=== PATIENT | male | born 1970 | race Hispanic/Latino ===

== ENCOUNTER 2017-04-30 10:00 | Inpatient (IN) | payer OTHER, SELFPAY ==
[2017-04-30] MEDS ORDERED: Piperacillin/Tazobactam 3.375 GM in Sodium Chloride 0.9% 100 ML IVPB SCH (11:30)
[2017-04-30] MEDS ORDERED: Ketorolac Tromethamine 30 MG/ML VIAL ONE (11:31)
[2017-04-30 11:36] LABS: Hemoglobin 10.5 g/dL (14.0-18.0); Mean Corpuscular HGB CONC 31.6 g/dL (32.0-36.0); Mean Corpuscular Hemoglobin 27.8 pg (27.0-31.0); Mean Platelet Volume 6.4 fL (7.4-10.4); Platelet Count 515 thou/uL (130-400); RBC Distribution Width 13.1 % (11.5-14.5); Red Blood Cell (RBC) Count 3.77 mill/uL (4.70-6.10); White Blood Cell (WBC) Count 24.2 thou/uL (4.8-10.8)
[2017-04-30 11:54] LABS: Band 14 % (5-11); Lymphocytes 8 % (21-51); MDiff Complete? YES; Monocytes 6 % (0-10); Neutrophil 72 % (42-75); PLT Morphology Comment Appears Increased; Polychromasia SLIGHT = 2-3 cells (100X) (0-2/hpf); Rouleaux Formation SLIGHT = 1-5 cells (100X) (None Seen)
[2017-04-30 12:10] LABS: Actual Bicarbonate (HCO3a) 18.5 mEq/L (22-26); Base Excess (BEa) -5.1 mEq/L (0 (+/-) 2.5); CO2 Tension 29.5 mmHg (35.0-45.0); Carboxyhemoglobin (COHb) 2.6 gm% (0.0-3.0); Hematocrit-ABG 35.5 % (42.0-52.0); Hemoglobin (Hb) 10.2 g/dL (14.0-18.0); O2 Tension (PaO2) 69.8 mmHg (80.0-100.0); pH, Arterial 7.41 (7.35-7.45)
[2017-04-30 12:11] LABS: Analyzer IN Cardio ER; Potassium - ABG Lab 2.9 mmol/L (3.70-5.30)
[2017-04-30 12:12] LABS: ALT (SGPT) 9 U/L (8-55); AST (SGOT) 22 U/L (5-34); Albumin 3.6 g/dL (3.5-5.0); Alkaline Phosphatase 120 U/L (40-150); Anion Gap 20 mmol/L (10-20); BUN (Urea Nitrogen) 31 mg/dL (8.9-20.6); Bilirubin, Total 1.1 mg/dL (0.2-1.2); Calc. Creatinine Clearance 0 mL/min (70-130); Calcium 9.2 mg/dL (7.8-10.44); Carbon Dioxide 16 mmol/L (22-29); Chloride 96 mmol/L (98-107); Estimated GFR-MDRD 37; Globulin 5.7 g/dL (2.4-3.5); Glucose 264 mg/dL (70-105); Potassium 3.1 mmol/L (3.5-5.1); Protein, Total 9.3 g/dL (6.0-8.3); Sodium 129 mmol/L (136-145)
--- NOTE | 2017-04-30 13:08 | ULT ---
VENOUS DOPPLER ULTRASOUND OF THE LEFT LOWER EXTREMITY: HISTORY: Edema and erythema in the left lower extremity, left foot wound for 2 weeks. TECHNIQUE: Linder scale ultrasound with color flow and spectral Doppler imaging of the deep venous system of the l eft lower extremity is performed. FINDINGS: There is good flow, compression, and augmentation noted in the left common femoral, femoral, poplitea l, posterior tibial, and greater saphenous veins. Incidental note is made of multiple enlarged lymph nodes in the left groin, the largest measuring abo ut 4.5 cm. IMPRESSION: No evidence of deep vein thrombosis in the left lower extremity. POS: [facility]
[2017-04-30] MEDS ORDERED: HumaLOG 300 UNITS/3 ML VIAL SC PRN (13:10)
[2017-04-30] MEDS ORDERED: Senokot 8.6 MG TAB PO PRN (13:10)
[2017-04-30] MEDS ORDERED: Dextrose 5% in Water 1,000 ML IV PRN (13:10)
[2017-04-30] MEDS ORDERED: Dextrose 50% Abboject 50 ML SYRINGE SLOW IVP PRN (13:10)
[2017-04-30] MEDS ORDERED: Guaifenesin DM 100-10/5 ML UDCUP PO PRN (13:10)
[2017-04-30] MEDS ORDERED: Sodium Chloride 0.9% 1,000 ML IV SCH (13:15)
--- NOTE | 2017-04-30 13:21 | RAD ---
THREE VIEWS LEFT FOOT: Comparison: None. History: Left foot infection with a blister on the bottom of the foot that got infected. FINDINGS: Three views of the left foot shows no evidence of acute fracture or dislocation. There is gas within the subcutaneous tissues along the dorsal aspect of the foot. This appears to be along the lateral as pect of the foot. No obvious osseous erosions are seen. There are degenerative changes in the great t oe metatarsal phalangeal joint. IMPRESSION: There is gas in the subcutaneous tissues concerning for necrotizing fascitis. Dr. Nj notified o f the findings at 1:01 p.m. on 04-30-17. POS: [facility]
--- NOTE | 2017-04-30 14:41 | HP ---
REASON FOR ADMISSION: Left foot cellulitis with ulcer, sepsis. HISTORY OF PRESENT ILLNESS: The patient gives history of developing a blister 2 weeks back on the la teral aspect of the left foot. This progressively became worse. He started swelling up and also sta rted to have purulent drainage from the ulcer. The ulcer has grown nearly to 3 x 3 cm now on the dinorah ntar aspect of the left foot over the fifth, fourth and third toe metatarsals. As the swelling and t he discharge got worse the patient came to emergency room. 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 PAST MEDICAL AND SURGICAL HISTORY: History of diabetes mellitus type 2 from last 10 years, right ish t great toe amputation done a year back by Dr. Vyas. CURRENT MEDICATIONS: Metformin 500 mg 2 p.o. twice daily, Tresiba 12 units daily. ALLERGIES: No known drug allergies. PERSONAL HISTORY: Does not abuse alcohol or drugs. No history of smoking. 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 FAMILY HISTORY: Mother of stomach cancer at the age of 81 years. Father is healthy and is 88 y ears old now. REVIEW OF SYSTEMS: The following complete review of systems was negative, unless otherwise mentioned in the HPI or below: Constitutional: Weight loss or gain, ability to conduct usual activities. Skin: Rash, itching. Eyes: Double vision, pain. ENT/Mouth: Nose bleeding, neck stiffness, pain, tenderness. Cardiovascular: Palpitations, dyspnea on exertion, orthopnea. Respiratory: Shortness of breath, wheezing, cough, hemoptysis, fever or night sweats. Gastrointestinal: Poor appetite, abdominal pain, heartburn, nausea, vomiting, constipation, or diarrhea. Genitourinary: Urgency, frequency, dysuria, nocturia. Musculoskeletal: Pain, swelling. Neurologic/Psychiatric: Anxiety, depression. Allergy/Immunologic: Skin rash, bleeding tendency. PHYSICAL EXAMINATION: GENERAL: The patient is a 47-year-old male who is currently not in any acute distress. VITAL SIGNS: Blood pressure on arrival was 86/54, currently 110/76 after 2 liters of normal saline, pulse 100 per minute, respiratory rate 22 per minute, temperature 98.2 degrees Fahrenheit, saturating 99% on room air. NECK: Supple, no elevated JVD. HEENT: Eyes; extraocular muscles intact. Pupils reacting to light. Oral cavity; mucous membranes a re moist. No exudates or congestion. CARDIOVASCULAR: S1, S2 heard. Regular rhythm. RESPIRATORY: Air entry 1+ bilaterally. No rales or rhonchi. ABDOMEN: Soft, bowel sounds heard. No tenderness, rigidity or guarding. EXTREMITIES: Left foot, there is a large ulcer measuring 3 x 3 cm on the plantar aspect of the left 3, 4 and 5 metatarsals. There is also edema and erythema of the entire foot and extending up to the leg. VASCULAR: Peripheral pulses are 1+ bilateral. No ischemic ulcerations. CENTRAL NERVOUS SYSTEM: No gross focal deficits seen. Patient is lethargic, but oriented well. PSYCHIATRIC: The patient's mood is euthymic. No hallucinations or delusions. LABORATORY AND X-RAY FINDINGS: White count 24, H&H 10 and 33, platelet count is 515 with 72% neutrop hils and 14% bands, MCV is 88. Sodium 129, potassium 3.1. Serum bicarbonate 16, BUN 31, creatinine 1.9, serum glucose 264. Liver enzymes within normal limits. Albumin is 3.6. Beta hydroxybutyrate i s 1.07. Three view left foot x-ray done shows gas in the subcutaneous tissues concerning for necroti zing fasciitis. No evidence of acute fracture or dislocation was seen. No osseous erosions were see n. Ultrasound venous Doppler of left lower extremity done shows no evidence of DVT. CLINICAL IMPRESSION AND PLAN: The patient will be admitted to medical floor for left foot ulcer with suspicion for necrotizing fasciitis with gas seen on the left leg and foot x-ray. He will be placed on vancomycin and Zosyn. We will keep him n.p.o. for now. I spoke to Dr. Vyas for General Surger y consultation. We will obtain blood cultures and wound cultures. He will be on Levemir 10 units shoemaker bcutaneously twice daily for now. He also appears to have acute kidney injury and will be gently hyd rated with normal saline at 100 mL per hour. The patient has received 2 liters of normal saline in t he ER and 1 more liter will be given shortly. We will continue to closely monitor him on the medical floor.
[2017-04-30] MEDS ORDERED: PHENYLEPHRINE-NS 100 MCG/ML 10 ML SYRINGE ONE (14:58)
[2017-04-30] MEDS ORDERED: PROPOFOL 200 MG/20 ML VIAL ONE (14:58)
[2017-04-30] MEDS ORDERED: Ondansetron PF 4 MG/2 ML Vial ONE (14:58)
[2017-04-30] MEDS ORDERED: Lidocaine 1% PF 5 ML VIAL ONE (14:58)
[2017-04-30] MEDS ORDERED: Succinylcholine Chloride 20 MG/ML 10 ml SYRINGE FS ONE (14:58)
[2017-04-30] MEDS ORDERED: HYDROmorphone 0.5 MG/0.5 ML SYRINGE ONE (16:40)
--- NOTE | 2017-04-30 17:07 | HP ---
HISTORY OF PRESENT ILLNESS: Laureano Cooley is a 47-year-old male, known to me from 10/27/2015 when I debrided a callus, neuropathic ulcer, left foot, and amputation of right great toe, metatarsal. His left plantar foot beneath the fourth metatarsal and third metatarsal phalangeal joint, had a callus t hat I debrided. The patient represented to the emergency room, evaluated by Dr. Bharathi Nj and admitted by Dr. Woodard, Hospitalist Service for complaints of left foot leg cellulitis and seps is. He had x-rays that demonstrated gas in the soft tissues of the dorsum of foot to the ankle. He has cellulitis to his distal leg. He noted to have a white count of 24,000 with 14% bands. I was as ked to see him. He had a large plantar neuropathic ulcer beneath the fifth metatarsophalangeal joint had approximately 3 cm in diameter, I inserted pressure on this area, gas and pus exudate. Cultures were submitted. The patient has had blood cultures. He has acute kidney injury with slight elevati on of his BUN and creatinine above baseline, 31 and 1.95 respectfully. His Accu-Cheks are 273 to 264 . He has palpable pedal pulses. 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 Plan at this time for gas g angrene and emergent exploration of left fifth toe and metatarsal amputation of his toe and metatarsa l debridement of the wound, incision and drainage of abscess over the dorsum of foot, amputated of th e toes and metatarsals indicated he may very well need a guillotine amputation of the left leg and shoemaker bsequent definitive closure after resolution of his sepsis. He has cellulitis to his mid leg. He canales s a pitting edema of his foot and ecchymosis over the dorsum of foot. ALLERGIES: None. TOBACCO: None. ALCOHOL: None. MEDICATIONS: Metformin 500 b.i.d., Tarceva 12 units daily. PAST MEDICAL HISTORY: Diabetes mellitus, type 2. PAST SURGICAL HISTORY: Right great toe amputation, debridement of the plantar neuropathic ulcer and callus, left foot, they noted above. PHYSICAL EXAMINATION: VITAL SIGNS: Respiratory rate 22, temperature 98.2 degrees, pulse 105, blood pressure 187/53, weight 108 kilograms. HEENT: Unremarkable. LUNGS: Clear to auscultation. CARDIAC: Regular rate and rhythm without murmur or gallop. ABDOMEN: Soft, nontender. EXTREMITIES: Palpable femoral, popliteal pedal pulses bilaterally. Amputation of the right great to e has noted over the left foot. He has cellulitis over the dorsum of the foot to the distal half of left leg. He has edema of the left foot. He has neuropathic ulcer with gas and purulent discharge o n compression from ulcer on the metatarsophalangeal joint of the fifth toe, left. He has some ecchym osis and edema on the dorsum of the foot. LABORATORY DATA: Sodium 129, potassium 3.1, creatinine 1.95, BUN 31, glucose 264. Lactic acid 1.2. ASSESSMENT AND PLAN: 1. Septic diabetic left foot with gas gangrene and soft tissue x-rays of the dorsum of foot to the a nkle. Planned operative intervention as noted above. 2. Diabetes mellitus.
[2017-04-30] MEDS ORDERED: Zolpidem Tartrate 5 MG TAB PO PRN (17:25)
[2017-04-30] MEDS ORDERED: Ondansetron PF 4 MG/2 ML Vial IVP PRN (17:25)
[2017-04-30] MEDS ORDERED: diphenhydrAMINE 50 MG/ML VIAL IVP PRN (17:25)
[2017-04-30] MEDS ORDERED: diphenhydrAMINE 25 MG CAP PO PRN (17:25)
[2017-04-30] MEDS ORDERED: Promethazine HCl 25 MG/ML VIAL SLOW IVP PRN (17:25)
[2017-04-30] MEDS ORDERED: Fentanyl 5000 MCG/250 ML CADD IVPB PRN (17:25)
[2017-04-30] MEDS ORDERED: Ondansetron HCl/PF 4 MG/2 ML Vial IVP PRN (17:25)
[2017-04-30] MEDS ORDERED: Promethazine HCl 25 MG/ML VIAL IM PRN ×2 (17:25)
[2017-04-30] MEDS ORDERED: diphenhydrAMINE 50 MG/ML VIAL IM PRN (17:25)
[2017-04-30] MEDS ORDERED: Naloxone HCl 0.4 mg/ml Vial IV PRN (17:25)
[2017-04-30] MEDS ORDERED: Communication Order-Pharmacy FS SCH (17:30)
[2017-04-30] MEDS ORDERED: Fentanyl 100 MCG/2 ML VIAL ONE (17:40)
[2017-04-30] MEDS ORDERED: fentaNYL Citrate/PF 2,000 MCG in Sodium Chloride 0.9% 60 ML IV PRN (17:45)
[2017-04-30 20:18] LABS: Lactic Acid 1.3 mmol/L (0.5-2.2)
--- NOTE | 2017-04-30 21:23 | OP ---
DATE OF PROCEDURE: 04/30/2017 PREOPERATIVE DIAGNOSES: Gas gangrene, diabetic infection, left foot with plantar neuropathic ulcerat ion beneath the metatarsophalangeal joints of the fifth and fourth toes, left foot, sepsis, acute kid tam injury. POSTOPERATIVE DIAGNOSES: Gas gangrene, diabetic infection, left foot with plantar neuropathic ulcera tion beneath the metatarsophalangeal joints of the fifth and fourth toes, left foot, sepsis, acute ki dney injury. FINDINGS: Extensive gas gangrene over the dorsum of the foot with infection and purulent extending a nterior muscle compartment requiring guillotine amputation. ANESTHESIA: General. BLOOD LOSS: 150 mL. BLOOD TRANSFUSED: None. Culture submitted. PROCEDURE IN DETAIL: The patient taken to the operating room where under general anesthesia, the lef t lower extremity was prepared with Betadine, draped in routine fashion. I initially began with luigi rodriguez, planning to amputate the left fifth toe and metatarsal with findings of purulent foul smelling discharge extending over the dorsum of the foot and cephalad to the adjacent fourth toe with gas exud ing. I then extended the amputation to the fourth toe, realizing the same process up to the ankle. An incision made up to the ankle. I really appreciate the gangrenous grayish tissue found in the ten don sheaths and then anterior muscle compartment. As I compressed the anterior muscle compartments o f the left leg above the ankle, gas and pus drained out of the dorsum of the foot near the ankle. Gu illotine amputation of left leg undertaken with a circular incision above the ankle, carried down thr ough the skin and subcutaneous tissue, dividing vascular bundles between clamps and ligated with 2-0 silk ties. The fibula and tibia transected with Gigli saw. Hemostasis gained with cautery and 2-0 s ilk ties. Wound irrigated, good hemostasis obtained. Surgicel Xeroform sterile dressings applied. The patient tolerated the procedure well. Plan is to perform a definitive amputation of the left leg below the knee in the next 2-4 days.
[2017-04-30] MEDS: Famotidine 20 MG TAB PO SCH (21:40)
[2017-04-30] MEDS: Piperacillin/Tazobactam 2.25 GM in Sodium Chloride 0.9% 100 ML IVPB SCH (21:42)
[2017-04-30] MEDS: Insulin Detemir 100 UNITS/ML 10 UNITS in Pre-Filled Syringe SC SCH (21:42)
[2017-04-30] MEDS: Sodium Chloride 0.9% 1,000 ML IV SCH (21:43)
[2017-04-30 23:35] VITALS: BMI 33.3
[2017-05-01] MEDS: Sodium Chloride 0.9% 1,000 ML IV SCH ×3 (00:21→18:54)
[2017-05-01] MEDS: Acetaminophen 325 MG TAB PO PRN ×2 (00:21→05:22)
[2017-05-01] MEDS: Piperacillin/Tazobactam 2.25 GM in Sodium Chloride 0.9% 100 ML IVPB SCH ×2 (05:17→12:26)
[2017-05-01 06:33] LABS: Anion Gap 14 mmol/L (10-20); BUN (Urea Nitrogen) 35 mg/dL (8.9-20.6); Calc. Creatinine Clearance 87 mL/min (70-130); Calcium 7.4 mg/dL (7.8-10.44); Carbon Dioxide 19 mmol/L (22-29); Chloride 103 mmol/L (98-107); Estimated GFR-MDRD 47; Glucose 178 mg/dL (70-105); Potassium 2.9 mmol/L (3.5-5.1); Sodium 133 mmol/L (136-145)
[2017-05-01 06:34] LABS: Band 8 % (5-11); Hemoglobin 8.5 g/dL (14.0-18.0); Lymphocytes 4 % (21-51); MDiff Complete? YES; Mean Corpuscular HGB CONC 32.4 g/dL (32.0-36.0); Mean Corpuscular Hemoglobin 28.8 pg (27.0-31.0); Mean Corpuscular Volume 88.9 fl (80.0-94.0); Mean Platelet Volume 6.7 fL (7.4-10.4); Monocytes 7 % (0-10); Neutrophil 81 % (42-75); Platelet Count 378 thou/uL (130-400); RBC Distribution Width 13.2 % (11.5-14.5); Red Blood Cell (RBC) Count 2.94 mill/uL (4.70-6.10); White Blood Cell (WBC) Count 14.4 thou/uL (4.8-10.8)
[2017-05-01] MEDS: HumaLOG 300 UNITS/3 ML VIAL SC PRN ×3 (06:37→17:53)
[2017-05-01] MEDS ORDERED: Potassium Chloride 20 MEQ TAB PO SCH (06:45)
[2017-05-01] MEDS ORDERED: Vancomycin HCl 1 GM in Sodium Chloride 0.9% 250 ML 250 ML IVPB SCH (09:00)
[2017-05-01] MEDS ORDERED: FLU VACC QS2017-18 36 mo. & older 0.5 ML SYRINGE IM ONE (09:00)
[2017-05-01] MEDS: Insulin Detemir 100 UNITS/ML 10 UNITS in Pre-Filled Syringe SC SCH ×2 (10:27→21:34)
[2017-05-01] MEDS: Enoxaparin Sodium 40 MG/0.4 ML SYRINGE SC SCH (10:28)
[2017-05-01] MEDS ORDERED: Vancomycin HCl 1 GM in Premix Bag 1 BAG IVPB SCH (12:00)
[2017-05-01] MEDS ORDERED: Sodium Chloride 0.65% Nasal 44 ML BOT EA NARE PRN (14:03)
[2017-05-01] MEDS ORDERED: guaiFENesin ER 600 MG TAB PO PRN (14:03)
--- NOTE | 2017-05-01 14:06 | PDOC.PN ---
- Subjective Encounter Start Date: 05/01/17 Encounter Start Time: 14:04 Subjective: nsg notes rev, tyshawn ovn, pt with family @ bedside, pt no new c/o -: other than sinus congestion overnight - Objective Resuscitation Status: Resuscitation Status FULL:Full Resuscitation Vital Signs & Weight: Vital Signs (12 hours) Temp Pulse Pulse Resp BP BP Pulse Ox 05/01/17 11:55 96.6 F L 96 18 110/56 L 92 L 05/01/17 11:05 99 110/56 L 05/01/17 08:10 97.6 F 92 18 93/55 L 100 05/01/17 06:00 98.8 F 05/01/17 05:00 100.8 F H 05/01/17 04:00 101.9 F H 103 H 18 97/64 99 Weight Weight 239 lb 1.6 oz I&O: 04/30/17 05/01/17 05/02/17 06:59 06:59 06:59 Intake Total 2400 Output Total 500 Balance 1900 Result Diagrams: 05/02/17 05:23 05/02/17 05:23 Additional Labs: Accuchecks 05/01/17 05/01/17 04/30/17 11:46 06:03 21:02 POC Glucose 175 H 178 H 224 H 04/30/17 15:34 POC Glucose 212 H Phys Exam - Physical Examination Constitutional: NAD HEENT: PERRLA, moist MMs Neck: no nodes Respiratory: no wheezing, no rales, no rhonchi, clear to auscultation bilateral limited anterior examination Cardiovascular: RRR, no significant murmur, no rub soft heart tones due to habitus Gastrointestinal: soft, non-tender, no distention, positive bowel sounds Psychiatric: A&O x 3 Dx/Plan (1) Osteomyelitis of toe of left foot Code(s): M86.9 - OSTEOMYELITIS, UNSPECIFIED Status: Acute Comment: s/p amputation of toe (2) Diabetes type 2, controlled Code(s): E11.9 - TYPE 2 DIABETES MELLITUS WITHOUT COMPLICATIONS Status: Chronic (3) Obesity (BMI 30.0-34.9) Code(s): E66.9 - OBESITY, UNSPECIFIED Status: Chronic - Plan cont current plan of care, plan discussed w/ family, continue antibiotics, 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 , 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 * osteomyelitis * currently s/p amp apprec surg c/s Dr Coffey * will continue with post-operative care * close blood glc control sinusitis type symptoms * symptomatic management: guaifenisen, nasal saline, continue to monitor diabetes type 2 * mgmt as per above, insulin diet: diabetic activity: as per surg Review of Systems - Medications/Allergies Allergies/Adverse Reactions: Allergies Allergy/AdvReac Type Severity Reaction Status Date / Time No Known Allergies Allergy Verified 04/30/17 22:05 Medications: Current Medications Acetaminophen (Tylenol) 650 mg PO Q4H PRN PRN Reason: Headache/Fever or Pain Last Admin: 05/01/17 05:22 Dose: 650 mg Dextrose/Water (Dextrose 50%) 25 gm SLOW IVP PRN PRN PRN Reason: Hypoglycemia Diphenhydramine HCl (Benadryl) 25 mg IVP Q3H PRN PRN Reason: Itching Diphenhydramine HCl (Benadryl) 25 mg PO Q3H PRN PRN Reason: Itching Diphenhydramine HCl (Benadryl) 25 mg IM Q3H PRN PRN Reason: Itching Enoxaparin Sodium (Lovenox) 40 mg SC 0900 [facility] Last Admin: 05/01/17 10:28 Dose: 40 mg Famotidine (Pepcid) 20 mg PO QPM [facility] Last Admin: 04/30/17 21:40 Dose: 20 mg Glucagon (Glucagon) 1 mg IM PRN PRN PRN Reason: Hypoglycemia Guaifenesin (Mucinex) 600 mg PO Q12HR PRN PRN Reason: Congestion Guaifenesin/Dextromethorphan (Robitussin Dm) 15 ml PO Q4H PRN PRN Reason: Cough Last Admin: 05/01/17 00:35 Dose: 15 ml Dextrose/Water (D5w) 1,000 mls @ 0 mls/hr IV .Q0M PRN; As Directed PRN Reason: Hypoglycemia Insulin Detemir 10 units/ (Miscellaneous Medication) 0.1 mls @ 0 mls/hr SC BID [facility] Last Admin: 05/01/17 10:27 Dose: 0.1 mls Piperacillin Sod/Tazobactam (Sod 2.25 gm/ Sodium Chloride) 100 mls @ 200 mls/ hr IVPB 0400,1200,2000 [facility] Last Admin: 05/01/17 12:26 Dose: 100 mls Sodium Chloride (Normal Saline 0.9%) 1,000 mls @ 125 mls/hr IV .Q8H RD Last Admin: 05/01/17 10:41 Dose: 1,000 mls Fentanyl Citrate 2,000 mcg/ (Sodium Chloride) 100 mls @ 0 mls/hr IV INF PRN; As Directed PRN Reason: Pain Vancomycin HCl 1 gm/ Device 200 mls @ 200 mls/hr IVPB [address] Last Admin: 05/01/17 13:56 Dose: 200 mls Insulin Human Lispro (Humalog) 0 units SC .MODERATE SLIDING SC PRN PRN Reason: Moderate Correctional Scale Last Admin: 05/01/17 06:37 Dose: 2 unit Insulin Human Lispro (Humalog) 0 units SC .BEDTIME SLIDING SC PRN PRN Reason: Bedtime Correctional Scale Last Admin: 04/30/17 21:42 Dose: 2 unit Miscellaneous Medication (Pharmacy To Dose) 1 each IVPB PRN PRN PRN Reason: . Naloxone HCl (Narcan) 0.2 mg IV Q5MIN PRN PRN Reason: Opiate Reversal Ondansetron HCl (Zofran) 4 mg IVP Q6H PRN PRN Reason: Nausea/Vomiting Last Admin: 05/01/17 00:34 Dose: 4 mg Promethazine HCl (Phenergan) 12.5 mg IM Q4H PRN PRN Reason: Nausea/Vomiting Senna (Senokot) 2 tab PO HSPRN PRN PRN Reason: Constipation Sodium Chloride ([place] 0.65%) 5 ml EA NARE TID PRN PRN Reason: Nasal Congestion Zolpidem Tartrate (Ambien) 5 mg PO HSPRN PRN PRN Reason: Insomnia
--- NOTE | 2017-05-01 14:16 | PRG ---
DATE OF SERVICE: 05/01/2017 SUBJECTIVE: Laureano Cooley is doing well status post Guillotine amputation of left leg for gas gangre ne foot, diabetic neuropathic ulcer. Patient is having some phantom pains. 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 OBJECTIVE: VITAL SIGNS: 96.6 degrees, 96, 110/56. His Pearce catheter could not be placed because of his phimos is intraoperatively, but he has been urinating without problems. Overall, the patient is doing well. LUNGS: Clear to auscultation. CARDIAC: Regular rate and rhythm without murmur or gallop. ABDOMEN: Soft, nontender. EXTREMITIES: Left leg dressing dry. LABORATORY DATA: White count 14, hemoglobin 8.5: Sodium 133, potassium 2.9, BUN 35, creatinine 1.59 , which is improved from 1.95, creatinine yesterday. ASSESSMENT AND PLAN: 1. Preoperative anemia, exacerbation of his anemia due to blood loss during surgery. We will type a nd cross 2 units and plan amputation closure left below the knee tomorrow. At rehab consult ordered, anticipating rehab transfer next week. I have discussed with him emphasis to avoid knee contracture and to keep pillows or blankets under his leg below his knee to maintain any extension to improve fu ture function for prosthesis. 2. Hypokalemia, replace. 3. Physical therapy, occupational therapy mobility.
[2017-05-01] MEDS ORDERED: Calcium Carbonate 500 MG ChewTAB PO PRN (16:02)
[2017-05-01] MEDS ORDERED: cefTRIAXone\\ROCEPHIN 1 GM in Sodium Chloride 0.9% 100 ML IVPB SCH (16:30)
[2017-05-01] MEDS: cefTRIAXone\\ROCEPHIN 1 GM, Syringe 0.4 ML in Sterile Water 9.6 ML SLOW IVP SCH (17:53)
--- NOTE | 2017-05-01 19:21 | CON ---
DATE OF CONSULTATION: 05/01/2017 REASON FOR CONSULTATION: Left lower extremity necrotizing infection. HISTORY OF PRESENT ILLNESS: A 47-year-old with history of type 2 diabetes mellitus, neuropathy, and prior right first toe amputation in 2016, who now was admitted with necrotizing infection of the left foot, extending towards the ankle. By the time he got to the emergency room, he had to have the gabbi llotine amputation at the BKA level. No headaches, visual symptoms, sore throat, odynophagia, dyspha danette. No cough or sputum production. No chest pain, no abdominal pain or diarrhea. No genitourinary symptoms. No neurological symptoms. PAST MEDICAL HISTORY: Type 2 diabetes, neuropathy, right first toe amputation. ALLERGIES: None. CURRENT MEDICATIONS: Tums, Benadryl, fentanyl, insulin, Zosyn, and vancomycin. FAMILY HISTORY: Noncontributory. SOCIAL HISTORY: Works at [employer], never smoker. PHYSICAL EXAMINATION: VITAL SIGNS: T-max 101.9, currently 96.6, blood pressure 110/56, pulse 96, respirations 18, O2 sat 9 2%-100%. GENERAL: He appears in no distress. The left fresh postop wound with dressing. No other skin lesio ns noted. The patient has peripheral IV access and no Pearce catheter. No lymphadenopathy. HEENT: Unremarkable. LUNGS: Clear. NECK: No jugular venous distension. HEART: S1, S2, regular rate. ABDOMEN: Soft. Not distended. No ascites. No bladder distention. NEUROLOGIC: Nonfocal. Cognitive function appears to be preserved. LABORATORY DATA: White cell count down from 24 to 14, hemoglobin 8.5, platelets 378. Creatinine is down from 1.95-1.59 and potassium 2.9. Microbiology with gram negative justice in the sample from the fo ot and Staph aureus, pending susceptibility testing. Two sets of blood cultures thus far are negativ e. Pathology pending. The operative report was reviewed and with a noticeable areas of necrosis ext ending towards the ankle. There is a foot x-ray from 04/30/2017 with gas in the subcutaneous tissues concerning for a necrotizing fasciitis. ASSESSMENT: 1. Diabetes type 2. 2. Necrotizing fasciitis, left foot and ankle, status post guillotine amputation at the below knee l evel or above foot level. DISCUSSION: The patient underwent fashioning of the BKA subsequently and he was transferred to rehab ilitation. We will discontinue vancomycin and continue Zosyn for the time being. We are just transi tioning him to [facility], and he will not require antimicrobial therapy upon discharge since most like ly the margin of amputation was way above the area of involvement. At the most, he could be discharg ed on oral antimicrobials following the susceptibility profile with the organisms isolated.
[2017-05-01] MEDS: metroNIDAZOLE 250 MG TAB PO SCH (21:33)
[2017-05-01] MEDS: Famotidine 20 MG TAB PO SCH (21:33)
[2017-05-02] MEDS: Acetaminophen 325 MG TAB PO PRN (03:56)
[2017-05-02] MEDS: Sodium Chloride 0.9% 1,000 ML IV SCH ×2 (03:57→22:16)
[2017-05-02 06:04] LABS: #Monocytes 0.8 thou/uL (0.11-0.59); #Neutrophils 9.8 thou/uL (1.40-6.50); %Basophils 0.1 % (0.0-1.0); %Eosinophils 0.3 % (0.0-10.0); %Monocytes 6.6 % (0.0-10.0); %Neutrophils 84.1 % (42.0-75.0); Hemoglobin 7.6 g/dL (14.0-18.0); Mean Corpuscular Hemoglobin 28.3 pg (27.0-31.0); Mean Corpuscular Volume 88.4 fl (80.0-94.0); Mean Platelet Volume 6.5 fL (7.4-10.4); Platelet Count 349 thou/uL (130-400); RBC Distribution Width 13.3 % (11.5-14.5); Red Blood Cell (RBC) Count 2.68 mill/uL (4.70-6.10); White Blood Cell (WBC) Count 11.6 thou/uL (4.8-10.8)
[2017-05-02 06:10] LABS: Anion Gap 11 mmol/L (10-20); BUN (Urea Nitrogen) 18 mg/dL (8.9-20.6); Calc. Creatinine Clearance 149 mL/min (70-130); Calcium 7.2 mg/dL (7.8-10.44); Carbon Dioxide 19 mmol/L (22-29); Chloride 107 mmol/L (98-107); Estimated GFR-MDRD 87; Glucose 106 mg/dL (70-105); Sodium 134 mmol/L (136-145)
[2017-05-02 06:14] LABS: Potassium 2.9 mmol/L (3.5-5.1)
[2017-05-02] MEDS ORDERED: Potassium Chloride 20 MEQ in Premix Bag 1 BAG IVPB SCH (06:45)
[2017-05-02] MEDS: Insulin Detemir 100 UNITS/ML 10 UNITS in Pre-Filled Syringe SC SCH ×2 (10:45→22:19)
[2017-05-02] MEDS: metroNIDAZOLE 250 MG TAB PO SCH ×3 (10:46→22:17)
[2017-05-02] MEDS ORDERED: CEFAZOLIN/Water 2 GM/20 ML SYRINGE ONE (12:57)
[2017-05-02] MEDS ORDERED: Fentanyl 100 MCG/2 ML VIAL ONE ×3 (13:13→15:21)
[2017-05-02] MEDS ORDERED: PHENYLEPHRINE-NS 100 MCG/ML 10 ML SYRINGE ONE (14:16)
[2017-05-02] MEDS ORDERED: PROPOFOL 200 MG/20 ML VIAL ONE (14:16)
[2017-05-02] MEDS ORDERED: Ondansetron PF 4 MG/2 ML Vial ONE (14:16)
[2017-05-02] MEDS ORDERED: Glycopyrrolate 0.2 MG/ML 5 ML SYRINGE ONE (14:16)
[2017-05-02] MEDS ORDERED: Lidocaine 1% PF 5 ML VIAL ONE (14:16)
[2017-05-02] MEDS ORDERED: HYDROmorphone 0.5 MG/0.5 ML SYRINGE ONE (14:48)
[2017-05-02] MEDS ORDERED: diphenhydrAMINE 25 MG CAP PO PRN (16:23)
[2017-05-02] MEDS ORDERED: Naloxone HCl 0.4 mg/ml Vial IV PRN (16:23)
[2017-05-02] MEDS ORDERED: Promethazine HCl 25 MG/ML VIAL IM PRN (16:23)
[2017-05-02] MEDS ORDERED: Zolpidem Tartrate 5 MG TAB PO PRN (16:23)
[2017-05-02] MEDS ORDERED: diphenhydrAMINE 50 MG/ML VIAL IVP PRN (16:23)
[2017-05-02] MEDS ORDERED: Fentanyl 5000 MCG/250 ML CADD IVPB PRN (16:23)
[2017-05-02] MEDS ORDERED: diphenhydrAMINE 50 MG/ML VIAL IM PRN (16:23)
[2017-05-02] MEDS ORDERED: Communication Order-Pharmacy FS SCH (16:30)
--- NOTE | 2017-05-02 16:41 | PDOC.PN ---
- Subjective Encounter Start Date: 05/02/17 Encounter Start Time: 16:39 Subjective: nsg notes rev, pt seen post op -: no new c/o, states "i've had better days" but no specific c/o -: pain controlled - Objective Resuscitation Status: Resuscitation Status FULL:Full Resuscitation Vital Signs & Weight: Vital Signs (12 hours) Temp Pulse Resp BP Pulse Ox 05/02/17 08:00 97.4 F L 88 20 118/62 97 05/02/17 05:51 98.5 F 05/02/17 05:36 101.1 F H 95 17 144/60 H 92 L Weight Weight 239 lb 1.6 oz I&O: 05/01/17 05/02/17 05/03/17 06:59 06:59 06:59 Intake Total 4900 Output Total 1430 Balance 3470 Result Diagrams: 05/02/17 05:23 05/02/17 05:23 Additional Labs: Accuchecks 05/02/17 05/02/17 05/01/17 12:53 05:47 21:10 POC Glucose 100 114 H 167 H 05/01/17 16:43 POC Glucose 163 H Phys Exam - Physical Examination Constitutional: NAD HEENT: PERRLA Neck: no nodes Respiratory: no wheezing, no rales, no rhonchi, clear to auscultation bilateral Cardiovascular: RRR, no significant murmur, no rub Gastrointestinal: soft, non-tender, no distention Musculoskeletal: no edema Psychiatric: A&O x 3 very depressed affect Dx/Plan (1) Osteomyelitis of toe of left foot Code(s): M86.9 - OSTEOMYELITIS, UNSPECIFIED Status: Acute Comment: s/p amputation of toe (2) Diabetes type 2, controlled Code(s): E11.9 - TYPE 2 DIABETES MELLITUS WITHOUT COMPLICATIONS Status: Chronic (3) Obesity (BMI 30.0-34.9) Code(s): E66.9 - OBESITY, UNSPECIFIED Status: Chronic - Plan cont current plan of care, continue antibiotics * cont current plan of care, continue antibiotics * osteomyelitis * currently s/p amp apprec surg c/s Dr Coffey * will continue with post-operative care - may need further surg * close blood glc control sinusitis type symptoms * symptomatic management: guaifenisen, nasal saline, continue to monitor diabetes type 2 * mgmt as per above, insulin diet: diabetic activity: as per surg Review of Systems - Medications/Allergies Allergies/Adverse Reactions: Allergies Allergy/AdvReac Type Severity Reaction Status Date / Time No Known Allergies Allergy Verified 04/30/17 22:05 Medications: Current Medications Acetaminophen (Tylenol) 650 mg PO Q4H PRN PRN Reason: Headache/Fever or Pain Last Admin: 05/02/17 03:56 Dose: 650 mg Calcium Carbonate (Tums) 500 mg PO Q6H PRN PRN Reason: Heartburn or Indigestion Last Admin: 05/01/17 17:07 Dose: 500 mg Dextrose/Water (Dextrose 50%) 25 gm SLOW IVP PRN PRN PRN Reason: Hypoglycemia Diphenhydramine HCl (Benadryl) 25 mg IVP Q3H PRN PRN Reason: Itching Diphenhydramine HCl (Benadryl) 25 mg PO Q3H PRN PRN Reason: Itching Diphenhydramine HCl (Benadryl) 25 mg IM Q3H PRN PRN Reason: Itching Diphenhydramine HCl (Benadryl) 25 mg IVP Q3H PRN PRN Reason: Itching Diphenhydramine HCl (Benadryl) 25 mg PO Q3H PRN PRN Reason: Itching Diphenhydramine HCl (Benadryl) 25 mg IM Q3H PRN PRN Reason: Itching Enoxaparin Sodium (Lovenox) 40 mg SC 0900 [facility] Last Admin: 05/01/17 10:28 Dose: 40 mg Famotidine (Pepcid) 20 mg PO QPM [facility] Last Admin: 05/01/17 21:33 Dose: 20 mg Fentanyl (Fentanyl Cadd) 0 mcg IVPB INF PRN PRN Reason: Pain Glucagon (Glucagon) 1 mg IM PRN PRN PRN Reason: Hypoglycemia Guaifenesin (Mucinex) 600 mg PO Q12HR PRN PRN Reason: Congestion Guaifenesin/Dextromethorphan (Robitussin Dm) 15 ml PO Q4H PRN PRN Reason: Cough Last Admin: 05/01/17 00:35 Dose: 15 ml Dextrose/Water (D5w) 1,000 mls @ 0 mls/hr IV .Q0M PRN; As Directed PRN Reason: Hypoglycemia Insulin Detemir 10 units/ (Miscellaneous Medication) 0.1 mls @ 0 mls/hr SC BID [facility] Last Admin: 05/02/17 10:45 Dose: Not Given Sodium Chloride (Normal Saline 0.9%) 1,000 mls @ 125 mls/hr IV .Q8H [facility] Last Admin: 05/02/17 03:57 Dose: 1,000 mls Fentanyl Citrate 2,000 mcg/ (Sodium Chloride) 100 mls @ 0 mls/hr IV INF PRN; As Directed PRN Reason: Pain Ceftriaxone Sodium 1 gm/ (Syringe 0.4 ml/ Sterile Water) 10 mls @ 120 mls/hr SLOW IVP 1700 [facility] Last Admin: 05/01/17 17:53 Dose: 10 mls Insulin Human Lispro (Humalog) 0 units SC .MODERATE SLIDING SC PRN PRN Reason: Moderate Correctional Scale Last Admin: 05/01/17 17:53 Dose: 2 unit Insulin Human Lispro (Humalog) 0 units SC .BEDTIME SLIDING SC PRN PRN Reason: Bedtime Correctional Scale Last Admin: 04/30/17 21:42 Dose: 2 unit Metronidazole (Flagyl) 250 mg PO TID [facility] Last Admin: 05/02/17 10:46 Dose: Not Given Miscellaneous Information (Communication Order-Pharmacy) 1 each ONE [facility] Naloxone HCl (Narcan) 0.2 mg IV Q5MIN PRN PRN Reason: Opiate Reversal Naloxone HCl (Narcan) 0.2 mg IV Q5MIN PRN PRN Reason: Opiate Reversal Ondansetron HCl (Zofran) 4 mg IVP Q6H PRN PRN Reason: Nausea/Vomiting Last Admin: 05/01/17 00:34 Dose: 4 mg Ondansetron HCl (Zofran) 4 mg IVP Q6H PRN PRN Reason: Nausea/Vomiting Promethazine HCl (Phenergan) 12.5 mg IM Q4H PRN PRN Reason: Nausea/Vomiting Promethazine HCl (Phenergan) 12.5 mg IM Q4H PRN PRN Reason: Nausea/Vomiting Senna (Senokot) 2 tab PO HSPRN PRN PRN Reason: Constipation Sodium Chloride ([place] Nasal [place] 0.65%) 0 ml EA NARE TID PRN PRN Reason: Nasal Congestion Zolpidem Tartrate (Ambien) 5 mg PO HSPRN PRN PRN Reason: Insomnia Zolpidem Tartrate (Ambien) 5 mg PO HSPRN PRN PRN Reason: Insomnia
--- NOTE | 2017-05-02 19:22 | OP ---
DATE OF PROCEDURE: 05/02/2017 PREOPERATIVE DIAGNOSES: Gas gangrene, necrotizing fasciitis, diabetic left foot and leg infection. POSTOPERATIVE DIAGNOSES: Gas gangrene, necrotizing fasciitis, diabetic left foot and leg infection w ith extension of infectious process above the guillotine amputation site. PROCEDURE: Sharp excisional debridement of skin, muscle, fascia, incision and drainage of muscular c ompartments, left below the knee guillotine amputation site in left leg and extension of incision and drainage to the distal left thigh anterior lateral with wound VAC application by Wound Care. SURGEON: Dr. Paul Vyas. ANESTHESIA: General. BLOOD TRANSFUSED: One unit of blood transfused (preoperative hemoglobin 7). PLAN: Return to the operating room on 05/05/2017 for wound VAC change and wound washout and then ret urn on 05/07/2017 for left jauqz-hrt-goap amputation. PROCEDURE IN DETAIL: The patient taken to the operating room where under general anesthesia, left lo wer extremity was prepared with ChloraPrep, draped in routine fashion. Guillotine amputation site lo oks good. The patient had had some fevers and there was some redness in the lateral left leg. Once incisions were made for BKA in the anterior lateral muscular compartment, there was purulent material extending up to the knee level. This was opened, evacuated, debrided of infected skin, fascia, and muscle and washed out. There was a small extension just above the knee, distal thigh, opened the ski n anterior lateral. No more purulent material was noted. Pulsavac was performed. Sharp debridement excisional using a 10 blade scalpel and cautery was used to remove skin, fascia, muscle were appropr iate. Hemostasis gained with cautery. Pulsavac wound irrigation performed. Wound care team arrived to place a wound VAC.
[2017-05-02] MEDS: Enoxaparin Sodium 40 MG/0.4 ML SYRINGE SC SCH (19:30)
[2017-05-02] MEDS: cefTRIAXone\\ROCEPHIN 1 GM, Syringe 0.4 ML in Sterile Water 9.6 ML SLOW IVP SCH (22:16)
[2017-05-02] MEDS: Famotidine 20 MG TAB PO SCH (22:16)
[2017-05-03] MEDS: Sodium Chloride 0.9% 1,000 ML IV SCH ×2 (01:21→07:28)
[2017-05-03] MEDS ORDERED: Chloraseptic Spray 180 ml Bottle PO PRN (03:49)
[2017-05-03 05:32] LABS: #Lymphocytes 1.1 thou/uL (1.20-3.40); #Monocytes 0.9 thou/uL (0.11-0.59); #Neutrophils 10.1 thou/uL (1.40-6.50); %Basophils 0.1 % (0.0-1.0); %Eosinophils 0.4 % (0.0-10.0); %Lymphocytes 8.9 % (21.0-51.0); %Monocytes 7.3 % (0.0-10.0); %Neutrophils 83.3 % (42.0-75.0); Hemoglobin 8.2 g/dL (14.0-18.0); Mean Corpuscular HGB CONC 32.7 g/dL (32.0-36.0); Mean Corpuscular Hemoglobin 28.7 pg (27.0-31.0); Mean Corpuscular Volume 87.7 fl (80.0-94.0); Mean Platelet Volume 6.5 fL (7.4-10.4); Platelet Count 387 thou/uL (130-400); RBC Distribution Width 13.8 % (11.5-14.5); Red Blood Cell (RBC) Count 2.85 mill/uL (4.70-6.10); White Blood Cell (WBC) Count 12.1 thou/uL (4.8-10.8)
[2017-05-03 05:59] LABS: Anion Gap 13 mmol/L (10-20); BUN (Urea Nitrogen) 12 mg/dL (8.9-20.6); Calc. Creatinine Clearance 171 mL/min (70-130); Calcium 7.3 mg/dL (7.8-10.44); Carbon Dioxide 19 mmol/L (22-29); Chloride 106 mmol/L (98-107); Estimated GFR-MDRD Greater than 90; Glucose 136 mg/dL (70-105); Sodium 135 mmol/L (136-145)
[2017-05-03] MEDS: HumaLOG 300 UNITS/3 ML VIAL SC PRN (07:26)
[2017-05-03] MEDS: metroNIDAZOLE 250 MG TAB PO SCH ×3 (09:26→22:06)
[2017-05-03] MEDS: Insulin Detemir 100 UNITS/ML 10 UNITS in Pre-Filled Syringe SC SCH ×2 (09:26→22:06)
[2017-05-03] MEDS: Enoxaparin Sodium 40 MG/0.4 ML SYRINGE SC SCH (09:28)
--- NOTE | 2017-05-03 14:55 | EKG ---
Test Reason : Blood Pressure : / mmHG Vent. Rate : 095 BPM Atrial Rate : 095 BPM P-R Int : 140 ms QRS Dur : 084 ms QT Int : 352 ms P-R-T Axes : 016 017 017 degrees QTc Int : 442 ms Normal sinus rhythm Normal ECG No ST/T wave changes Confirmed by FRANCINE FISCHER DO ([id number]), deputy editor in chief ANDREI LEWIS ([id number]) on 05/03/2017 2:55:34 PM Referred By: Confirmed By:FRANCINE FISCHER DO
--- NOTE | 2017-05-03 17:11 | PRG ---
DATE OF SERVICE: 05/03/2017 SUBJECTIVE: The patient is postop day #1 status post sharp excisional debridement of skin, muscle, f ascia, incision and drainage of muscular compartments, left dobjz-vyt-gtmz guillotine amputation from a suspected gas gangrene, necrotizing fasciitis, diabetic foot and left leg infection. The patient overnight has not had any issues. This morning, states his pain is well controlled with the FILM EXAMINER and he states that he is not using it very often and he tolerated diet this morning. PHYSICAL EXAMINATION: VITAL SIGNS: Temperature 98.6, heart rate 95, blood pressure 127/59, respirations 21, oxygen saturat ion 92% on room air. GENERAL: The patient is resting in bed, understandably has a flat affect this morning, but does inte ract appropriately. LUNGS: Clear to auscultation bilaterally with good inspiratory and expiratory effort. HEART: Regular rate and rhythm. ABDOMEN: Soft, flat, nontender with active bowel sounds. EXTREMITIES: Left lower extremity shows a functioning wound VAC with primarily bloody drainage. The re did not appear to be any significant purulence in the chamber. There did not appear to be any str eaking proximally from his stump dressing. LABORATORY DATA AND IMAGING DATA: White blood cell count 12.1, hemoglobin 8.2, hematocrit 25.0, and platelets 387. Sodium 135, potassium 3.0, chloride 106, CO2 19, BUN 12, creatinine 0.81, and glucose 136. There are no radiographs to review this morning. ASSESSMENT AND PLAN: Status post left haepa-pze-njdf amputation. Plan will be to continue supportiv e care, wound VAC and reassess extremity daily. The evaluation, examination, assessment and plan wer e all discussed with Dr. Stevenson during rounds this morning.
[2017-05-03] MEDS: cefTRIAXone\\ROCEPHIN 1 GM, Syringe 0.4 ML in Sterile Water 9.6 ML SLOW IVP SCH (17:35)
[2017-05-03] MEDS: Famotidine 20 MG TAB PO SCH (22:06)
--- NOTE | 2017-05-03 23:35 | PDOC.PN ---
- Subjective Encounter Start Date: 05/03/17 Encounter Start Time: 18:00 Subjective: nsg notes rev, tyshawn ovn, no new c/o denies any active pain, denies any furth -: er congestion/ sinus discomfort/ post nasal drip - Objective Resuscitation Status: Resuscitation Status FULL:Full Resuscitation Vital Signs & Weight: Vital Signs (12 hours) Temp Pulse Resp BP Pulse Ox 05/03/17 20:00 99.6 F 92 18 125/75 92 L 05/03/17 16:00 98.8 F 93 21 H 137/68 95 05/03/17 12:00 20 05/03/17 11:51 98.7 F 93 21 H 143/68 H 90 L Weight Admit Weight 239 lb 1.6 oz Weight 239 lb 1.6 oz I&O: 05/02/17 05/03/17 05/04/17 06:59 06:59 06:59 Intake Total 4900 750 Output Total 1430 875 400 Balance 347125 400 Result Diagrams: 05/05/17 04:57 05/05/17 04:57 Additional Labs: Accuchecks 05/03/17 05/03/17 05/03/17 21:08 16:08 11:33 POC Glucose 164 H 141 H 134 H 05/03/17 06:16 POC Glucose 159 H Phys Exam - Physical Examination Constitutional: NAD HEENT: PERRLA, moist MMs Respiratory: no wheezing, no rales, no rhonchi, clear to auscultation bilateral Cardiovascular: RRR, no significant murmur, no rub Gastrointestinal: soft, no distention, positive bowel sounds Psychiatric: A&O x 3 depressed affect Dx/Plan (1) Osteomyelitis of toe of left foot Code(s): M86.9 - OSTEOMYELITIS, UNSPECIFIED Status: Acute Comment: s/p amputation of toe (2) Diabetes type 2, controlled Code(s): E11.9 - TYPE 2 DIABETES MELLITUS WITHOUT COMPLICATIONS Status: Chronic (3) Obesity (BMI 30.0-34.9) Code(s): E66.9 - OBESITY, UNSPECIFIED Status: Chronic - Plan * cont current plan of care, continue antibiotics * osteomyelitis * currently s/p amp apprec surg c/s Dr Coffey * will continue with post-operative care - may need further surgical debridement/ amputation * close blood glc control sinusitis type symptoms * symptomatic management: guaifenisen, nasal saline, continue to monitor diabetes type 2 * mgmt as per above, insulin depressive affect * continue to monitor diet: diabetic activity: as per surg Review of Systems - Medications/Allergies Allergies/Adverse Reactions: Allergies Allergy/AdvReac Type Severity Reaction Status Date / Time No Known Allergies Allergy Verified 04/30/17 22:05 Medications: Current Medications Acetaminophen (Tylenol) 650 mg PO Q4H PRN PRN Reason: Headache/Fever or Pain Last Admin: 05/05/17 05:42 Dose: 650 mg Bacitracin Zinc (Bacitracin) 0 pk TOP BID [facility] Stop: 05/12/17 09:01 Last Admin: 05/06/17 01:17 Dose: Not Given Calcium Carbonate (Tums) 500 mg PO Q6H PRN PRN Reason: Heartburn or Indigestion Last Admin: 05/01/17 17:07 Dose: 500 mg Dextrose/Water (Dextrose 50%) 25 gm SLOW IVP PRN PRN PRN Reason: Hypoglycemia Diphenhydramine HCl (Benadryl) 25 mg IVP Q3H PRN PRN Reason: Itching Diphenhydramine HCl (Benadryl) 25 mg PO Q3H PRN PRN Reason: Itching Diphenhydramine HCl (Benadryl) 25 mg IM Q3H PRN PRN Reason: Itching Enoxaparin Sodium (Lovenox) 40 mg SC 0900 [facility] Last Admin: 05/05/17 12:34 Dose: Not Given Famotidine (Pepcid) 20 mg PO QPM [facility] Last Admin: 05/05/17 21:08 Dose: 20 mg Glucagon (Glucagon) 1 mg IM PRN PRN PRN Reason: Hypoglycemia Guaifenesin (Mucinex) 600 mg PO Q12HR PRN PRN Reason: Congestion Guaifenesin/Dextromethorphan (Robitussin Dm) 15 ml PO Q4H PRN PRN Reason: Cough Last Admin: 05/01/17 00:35 Dose: 15 ml Dextrose/Water (D5w) 1,000 mls @ 0 mls/hr IV .Q0M PRN; As Directed PRN Reason: Hypoglycemia Insulin Detemir 10 units/ (Miscellaneous Medication) 0.1 mls @ 0 mls/hr SC BID [facility] Last Admin: 05/05/17 21:17 Dose: Not Given Fentanyl Citrate 2,000 mcg/ (Sodium Chloride) 100 mls @ 0 mls/hr IV INF PRN; As Directed PRN Reason: Pain Last Admin: 05/02/17 17:54 Dose: 100 mls Meropenem 1 gm/ Sterile Water 20 mls @ 240 mls/hr SLOW IVP 0500,1300,2100 [facility] Last Admin: 05/05/17 21:08 Dose: 20 mls Potassium Chloride 20 meq/ (Lactated Ringer's) 1,010 mls @ 100 mls/hr IV .Q10H6M [facility] Last Admin: 05/05/17 21:09 Dose: 1,010 mls Insulin Human Lispro (Humalog) 0 units SC .MODERATE SLIDING SC PRN PRN Reason: Moderate Correctional Scale Last Admin: 05/03/17 07:26 Dose: 2 unit Insulin Human Lispro (Humalog) 0 units SC .BEDTIME SLIDING SC PRN PRN Reason: Bedtime Correctional Scale Last Admin: 04/30/17 21:42 Dose: 2 unit Naloxone HCl (Narcan) 0.2 mg IV Q5MIN PRN PRN Reason: Opiate Reversal Ondansetron HCl (Zofran) 4 mg IVP Q6H PRN PRN Reason: Nausea/Vomiting Last Admin: 05/05/17 16:53 Dose: 4 mg Phenol (Chloraseptic [place] 180 Ml Bot) 0 ml PO PRN PRN PRN Reason: SORE THROAT Last Admin: 05/03/17 04:50 Dose: 1 spr Promethazine HCl (Phenergan) 12.5 mg IM Q4H PRN PRN Reason: Nausea/Vomiting Senna (Senokot) 2 tab PO HSPRN PRN PRN Reason: Constipation Sodium Chloride ([place] Nasal [place] 0.65%) 0 ml EA NARE TID PRN PRN Reason: Nasal Congestion Sodium Chloride (Flush - Normal Saline) 10 ml IVF Q12HR [facility] Last Admin: 05/05/17 21:09 Dose: 10 ml Sodium Chloride (Flush - Normal Saline) 10 ml IVF PRN PRN PRN Reason: Saline Flush Tamsulosin HCl (Flomax) 0.4 mg PO DAILY [facility] Last Admin: 05/05/17 09:14 Dose: 0.4 mg Zolpidem Tartrate (Ambien) 5 mg PO HSPRN PRN PRN Reason: Insomnia
[2017-05-04] MEDS: Sodium Chloride 0.9% 1,000 ML IV SCH ×2 (03:46→21:09)
[2017-05-04 06:10] LABS: #Eosinphils 0.2 thou/uL (0.0-0.7); #Lymphocytes 1.2 thou/uL (1.20-3.40); #Monocytes 0.9 thou/uL (0.11-0.59); %Eosinophils 1.5 % (0.0-10.0); %Lymphocytes 10.7 % (21.0-51.0); %Monocytes 8.1 % (0.0-10.0); %Neutrophils 79.8 % (42.0-75.0); Hemoglobin 8.1 g/dL (14.0-18.0); Mean Corpuscular Hemoglobin 28.5 pg (27.0-31.0); Mean Platelet Volume 6.6 fL (7.4-10.4); Platelet Count 411 thou/uL (130-400); RBC Distribution Width 14.1 % (11.5-14.5); Red Blood Cell (RBC) Count 2.83 mill/uL (4.70-6.10); White Blood Cell (WBC) Count 11.2 thou/uL (4.8-10.8)
[2017-05-04 06:24] LABS: Anion Gap 12 mmol/L (10-20); BUN (Urea Nitrogen) 10 mg/dL (8.9-20.6); Calc. Creatinine Clearance 157 mL/min (70-130); Calcium 7.3 mg/dL (7.8-10.44); Carbon Dioxide 20 mmol/L (22-29); Chloride 108 mmol/L (98-107); Estimated GFR-MDRD Greater than 90; Glucose 161 mg/dL (70-105); Potassium 3.5 mmol/L (3.5-5.1); Sodium 136 mmol/L (136-145)
[2017-05-04] MEDS: metroNIDAZOLE 250 MG TAB PO SCH (08:35)
[2017-05-04] MEDS: Tamsulosin HCl 0.4 MG CAP PO SCH (08:35)
[2017-05-04] MEDS: Insulin Detemir 100 UNITS/ML 10 UNITS in Pre-Filled Syringe SC SCH ×2 (08:35→20:55)
[2017-05-04] MEDS: Acetaminophen 325 MG TAB PO PRN ×2 (08:35→23:49)
[2017-05-04] MEDS: Enoxaparin Sodium 40 MG/0.4 ML SYRINGE SC SCH (08:35)
--- NOTE | 2017-05-04 12:05 | PDOC.PN ---
- Subjective Encounter Start Date: 05/04/17 Encounter Start Time: 12:04 Subjective: nsg notes rev, tyshawn ovn, no new c/o, denies any fevers/ chills/ pain -: no dysuria - Objective Resuscitation Status: Resuscitation Status FULL:Full Resuscitation Vital Signs & Weight: Vital Signs (12 hours) Temp Pulse Resp BP Pulse Ox 05/04/17 08:00 100.4 F H 87 16 143/71 H 91 L 05/04/17 03:51 99.2 F 89 18 134/63 95 05/04/17 01:17 99.7 F H 82 16 121/57 L 96 Weight Admit Weight 239 lb 1.6 oz Weight 239 lb 1.6 oz I&O: 05/03/17 05/04/17 05/05/17 06:59 06:59 06:59 Intake Total 750 1080 Output Total 875 400 Balance -125 680 Result Diagrams: 05/05/17 04:57 05/05/17 04:57 Additional Labs: Accuchecks 05/04/17 05/04/17 05/03/17 11:24 06:04 21:08 POC Glucose 167 H 187 H 164 H 05/03/17 16:08 POC Glucose 141 H Phys Exam - Physical Examination Constitutional: NAD HEENT: PERRLA, moist MMs Neck: no nodes, no JVD Respiratory: no wheezing, no rales, no rhonchi, clear to auscultation bilateral Cardiovascular: RRR, no significant murmur, no rub Gastrointestinal: soft, non-tender, no distention, positive bowel sounds Musculoskeletal: no edema, pulses present Psychiatric: normal affect, A&O x 3 Dx/Plan (1) Osteomyelitis of toe of left foot Code(s): M86.9 - OSTEOMYELITIS, UNSPECIFIED Status: Acute Comment: s/p amputation of toe (2) Diabetes type 2, controlled Code(s): E11.9 - TYPE 2 DIABETES MELLITUS WITHOUT COMPLICATIONS Status: Chronic (3) Obesity (BMI 30.0-34.9) Code(s): E66.9 - OBESITY, UNSPECIFIED Status: Chronic - Plan * cont current plan of care, continue antibiotics * osteomyelitis * apprec surg c/s * will continue with post-operative care - may need further surg * close blood glc control * apprec ID c/s re: abx sinusitis type symptoms, resolved * symptomatic management: guaifenisen, nasal saline, continue to monitor diabetes type 2, stable * mgmt as per above, insulin depressive affect * continue to monitor phimosis * plan for OR tomorrow - surgical circumcision diet: diabetic activity: as per surg Review of Systems - Medications/Allergies Allergies/Adverse Reactions: Allergies Allergy/AdvReac Type Severity Reaction Status Date / Time No Known Allergies Allergy Verified 04/30/17 22:05 Medications: Current Medications Acetaminophen (Tylenol) 650 mg PO Q4H PRN PRN Reason: Headache/Fever or Pain Last Admin: 05/04/17 08:35 Dose: 650 mg Calcium Carbonate (Tums) 500 mg PO Q6H PRN PRN Reason: Heartburn or Indigestion Last Admin: 05/01/17 17:07 Dose: 500 mg Dextrose/Water (Dextrose 50%) 25 gm SLOW IVP PRN PRN PRN Reason: Hypoglycemia Diphenhydramine HCl (Benadryl) 25 mg IVP Q3H PRN PRN Reason: Itching Diphenhydramine HCl (Benadryl) 25 mg PO Q3H PRN PRN Reason: Itching Diphenhydramine HCl (Benadryl) 25 mg IM Q3H PRN PRN Reason: Itching Enoxaparin Sodium (Lovenox) 40 mg SC 0900 [facility] Last Admin: 05/04/17 08:35 Dose: 40 mg Famotidine (Pepcid) [address] Last Admin: 05/03/17 22:06 Dose: 20 mg Glucagon (Glucagon) 1 mg IM PRN PRN PRN Reason: Hypoglycemia Guaifenesin (Mucinex) 600 mg PO Q12HR PRN PRN Reason: Congestion Guaifenesin/Dextromethorphan (Robitussin Dm) 15 ml PO Q4H PRN PRN Reason: Cough Last Admin: 05/01/17 00:35 Dose: 15 ml Dextrose/Water (D5w) 1,000 mls @ 0 mls/hr IV .Q0M PRN; As Directed PRN Reason: Hypoglycemia Insulin Detemir 10 units/ (Miscellaneous Medication) 0.1 mls @ 0 mls/hr SC BID [facility] Last Admin: 05/04/17 08:35 Dose: 0.1 mls Fentanyl Citrate 2,000 mcg/ (Sodium Chloride) 100 mls @ 0 mls/hr IV INF PRN; As Directed PRN Reason: Pain Last Admin: 05/02/17 17:54 Dose: 100 mls Sodium Chloride (Normal Saline 0.9%) 1,000 mls @ 50 mls/hr IV .Q20H [facility] Last Admin: 05/04/17 03:46 Dose: 1,000 mls Meropenem 1 gm/ Sodium (Chloride) 100 mls @ 200 mls/hr IVPB Q8HR [facility] Insulin Human Lispro (Humalog) 0 units SC .MODERATE SLIDING SC PRN PRN Reason: Moderate Correctional Scale Last Admin: 05/03/17 07:26 Dose: 2 unit Insulin Human Lispro (Humalog) 0 units SC .BEDTIME SLIDING SC PRN PRN Reason: Bedtime Correctional Scale Last Admin: 04/30/17 21:42 Dose: 2 unit Naloxone HCl (Narcan) 0.2 mg IV Q5MIN PRN PRN Reason: Opiate Reversal Ondansetron HCl (Zofran) 4 mg IVP Q6H PRN PRN Reason: Nausea/Vomiting Phenol (Chloraseptic [place] 180 Ml Bot) 0 ml PO PRN PRN PRN Reason: SORE THROAT Last Admin: 05/03/17 04:50 Dose: 1 spr Promethazine HCl (Phenergan) 12.5 mg IM Q4H PRN PRN Reason: Nausea/Vomiting Senna (Senokot) 2 tab PO HSPRN PRN PRN Reason: Constipation Sodium Chloride ([place] Nasal [place] 0.65%) 0 ml EA NARE TID PRN PRN Reason: Nasal Congestion Tamsulosin HCl (Flomax) 0.4 mg PO DAILY [facility] Last Admin: 05/04/17 08:35 Dose: 0.4 mg Zolpidem Tartrate (Ambien) 5 mg PO HSPRN PRN PRN Reason: Insomnia
[2017-05-04] MEDS: Meropenem 1 GM in Sterile Water 20 ML SLOW IVP SCH ×2 (13:56→20:55)
[2017-05-04] MEDS ORDERED: Meropenem 1 GM in Sodium Chloride 0.9% 100 ML IVPB SCH (14:00)
--- NOTE | 2017-05-04 16:54 | PRG ---
DATE OF SERVICE: 05/04/2017 SUBJECTIVE: The patient is postop day #2 status post sharp excisional debridement of left lower extr emity, specifically a left zypjn-fhv-rrye guillotine amputation. The patient states that overnight h e had no issues. His pain is controlled on SSIS ETL DEVELOPER. He is tolerating a diet and was able to get out of bed with physical and occupational therapy yesterday. PHYSICAL EXAMINATION: VITAL SIGNS: Temperature is 100.4, heart rate 87, blood pressure 143/71, respirations 16, oxygen sat uration is 97% on room air. GENERAL: The patient is awake, alert, and oriented x3, appears to be in somewhat better spirits this morning. He was able to get to 3000 on his incentive spirometry. HEENT: Unremarkable. LUNGS: Clear to auscultation with good inspiratory and expiratory effort. HEART: Regular rate and rhythm. ABDOMEN: Soft, flat, and nontender with active bowel sounds. EXTREMITIES: Left lower extremity shows a clean, dry, intact stump dressing and a functioning wound VAC. There does not appear to be any proximal redness or warmth above the dressing. LABORATORY FINDINGS: White blood cell count 11.2, hemoglobin 8.1, hematocrit 25.2, platelets 411. S odium 136, potassium 3.5, chloride 108, CO2 of 20, BUN 10, creatinine 0.88, glucose 161. There are n o radiographs to review this morning. ASSESSMENT AND PLAN: Status post left ojdgo-eqs-ovgi amputation. Plan will be to continue supportiv e care, physical and occupational therapy, and reevaluate the patient tomorrow per primary surgeon's original plan. The evaluation and examination were discussed with Dr. Stevenosn during rounds this ede campos
[2017-05-04] MEDS: Famotidine 20 MG TAB PO SCH (20:55)
[2017-05-05] MEDS: Meropenem 1 GM in Sterile Water 20 ML SLOW IVP SCH ×3 (05:42→21:08)
[2017-05-05] MEDS: Acetaminophen 325 MG TAB PO PRN (05:42)
[2017-05-05 05:43] LABS: #Eosinphils 0.2 thou/uL (0.0-0.7); #Lymphocytes 1.4 thou/uL (1.20-3.40); #Monocytes 0.9 thou/uL (0.11-0.59); #Neutrophils 8.1 thou/uL (1.40-6.50); %Eosinophils 1.6 % (0.0-10.0); %Lymphocytes 12.9 % (21.0-51.0); %Monocytes 8.7 % (0.0-10.0); %Neutrophils 76.8 % (42.0-75.0); Hemoglobin 7.9 g/dL (14.0-18.0); Mean Corpuscular HGB CONC 32.2 g/dL (32.0-36.0); Mean Corpuscular Hemoglobin 28.5 pg (27.0-31.0); Mean Corpuscular Volume 88.5 fl (80.0-94.0); Mean Platelet Volume 6.3 fL (7.4-10.4); Platelet Count 484 thou/uL (130-400); RBC Distribution Width 14.3 % (11.5-14.5); Red Blood Cell (RBC) Count 2.78 mill/uL (4.70-6.10); White Blood Cell (WBC) Count 10.6 thou/uL (4.8-10.8)
[2017-05-05 06:13] LABS: Anion Gap 11 mmol/L (10-20); BUN (Urea Nitrogen) 9 mg/dL (8.9-20.6); Calc. Creatinine Clearance 171 mL/min (70-130); Calcium 7.4 mg/dL (7.8-10.44); Carbon Dioxide 22 mmol/L (22-29); Chloride 106 mmol/L (98-107); Estimated GFR-MDRD Greater than 90; Glucose 190 mg/dL (70-105); Sodium 136 mmol/L (136-145)
--- NOTE | 2017-05-05 09:11 | PRG ---
DATE OF SERVICE: 05/05/2017 The patient did well over the weekend. He is not sure whether Dr. Vyas is taking him back today or not; I will confirm this. I did start him on tamsulosin for his weak stream and he has not noticed thus far that there is any significant improvement. His vitals have been stable. His anemia is stable and his creatinine is good at 0.81. It had been up to a max of 1.45 previously. ASSESSMENT: 47-year-old male status post left lower extremity debridement likely needing more with a significant phimosis and advised him to have a circumcision during this hospital stay. We will try to attempt to coordinate this with Dr. Vyas. An alternative is that I have operating time tomorrow and he can go down for a circumcision at that time as well. I have reviewed these options with the patient. CRISTINE
[2017-05-05] MEDS: Tamsulosin HCl 0.4 MG CAP PO SCH (09:14)
[2017-05-05] MEDS: Insulin Detemir 100 UNITS/ML 10 UNITS in Pre-Filled Syringe SC SCH ×2 (09:15→21:17)
[2017-05-05] MEDS: Potassium Chloride 20 MEQ in Lactated Ringer's 1,000 ML IV SCH ×2 (09:51→21:09)
[2017-05-05] MEDS ORDERED: Ondansetron PF 4 MG/2 ML Vial ONE (11:59)
[2017-05-05] MEDS ORDERED: Bupivacaine 0.25% HCL 30 ML VIAL ONE (12:03)
[2017-05-05] MEDS ORDERED: Bacitracin Zinc Ointment 30 gm TUBE ONE (12:03)
[2017-05-05] MEDS ORDERED: Lidocaine 1% (PF) 30 ML VIAL ONE (12:03)
[2017-05-05] MEDS ORDERED: Fentanyl 100 MCG/2 ML VIAL ONE (12:07)
[2017-05-05] MEDS: Enoxaparin Sodium 40 MG/0.4 ML SYRINGE SC SCH (12:34)
[2017-05-05] MEDS ORDERED: Promethazine HCl 25 MG/ML VIAL IM PRN (13:12)
[2017-05-05] MEDS ORDERED: Promethazine HCl 25 MG/ML VIAL SLOW IVP PRN (13:12)
[2017-05-05] MEDS ORDERED: Ondansetron HCl/PF 4 MG/2 ML Vial IVP PRN (13:12)
[2017-05-05] MEDS ORDERED: Glycopyrrolate 0.2 MG/ML 5 ML SYRINGE ONE (15:05)
[2017-05-05] MEDS ORDERED: ePHEDrine/0.9% NaCl/PF SYRINGE 50 mg/10 ml ONE (15:05)
[2017-05-05] MEDS ORDERED: Lidocaine 1% PF 5 ML VIAL ONE (15:05)
[2017-05-05] MEDS ORDERED: PROPOFOL 200 MG/20 ML VIAL ONE (15:05)
[2017-05-05] MEDS ORDERED: PHENYLEPHRINE-NS 100 MCG/ML 10 ML SYRINGE ONE (15:05)
[2017-05-05] MEDS ORDERED: Fentanyl 250 MCG/5 ML VIAL ONE (15:19)
--- NOTE | 2017-05-05 15:25 | CON ---
DATE OF CONSULTATION: 05/02/2017 REASON FOR CONSULTATION: Consultation was requested for phimosis. HISTORY OF PRESENT ILLNESS: Dr. Vyas called me directly with concerns for phimosis and inability to adequately place a catheter, although the patient was not in retention and was voiding adequately. There was not an urgent or concerning issue other than the obvious inability to retract the foreskin. Patient reports that he has had trouble with this for a while and he also reports some weak stream, but no significant frequency or nocturia nor incomplete emptying. BPH and tamsulosin reviewed. PAST MEDICAL HISTORY: Significant for diabetes for more than 10 years. Remote diverticulitis. PAST SURGICAL HISTORY: Includes amputations of the right toe, debridement of plantar ulcer, amputation of the left foot. MEDICATIONS: Metformin 500 mg b.i.d. and Tresiba. ALLERGIES: None. SOCIAL HISTORY: He does not smoke, drink, or use drugs. REVIEW OF SYSTEMS: Reveals he had a colonoscopy remotely when he had an episode of diverticulitis and that was only 1. He had no polyps at that time. He does think he has been screened for prostate cancer with a PSA and was told it was normal. He denies any chest pain, shortness of breath, or cough. He is having some pain given he has just recently been debrided in his left lower extremity. FAMILY HISTORY: Significant for his mother dying at 81 and his father alive at 88 and relatively healthy. PHYSICAL EXAMINATION: GENERAL: He is drowsy, which is appropriate in the postoperative period. VITAL SIGNS: He had a T-max of 101.1, heart rate 88, blood pressure 118/62, 97 % on room air. He had 1230 of urine out prior shift. NEUROLOGIC: He was alert and oriented and appropriate. CARDIOVASCULAR: Regular rate and rhythm. No murmurs, gallops, or rubs. RESPIRATORY: Lungs are clear to auscultation bilaterally. ABDOMEN: Soft and distended. Normoactive bowel sounds. Nontender. EXTREMITIES: Right lower extremity was within normal limits. Left lower extremity had a bandage wrapping up his BKA stump. GENITOURINARY: His testes are descended bilaterally without masses. Phallus was uncircumcised with significant edema and hypopigmentation of the prepuce with an inability to retract and visualize the glans. LABORATORY VALUES: Reveal an anemia of 7.6 and 23.7 and a BUN and creatinine of 18 and 0.93. There is no urinalysis. ASSESSMENT AND PLAN: We have a 47-year-old male with phimosis and severe complications related to diabetes. He is admitted this day for infected left lower extremity, status post recent debridement. Dr. Vyas expects to go back and was hoping that I could perform a circumcision at the same time. We will try to work to make this happen. Risks and benefits of the procedure reviewed with the patient. All questions answered. CRISTINE
--- NOTE | 2017-05-05 16:34 | RAD ---
CHEST ONE VIEW: History: 47-year-old male with history of diabetes and lower extremity edema. Right central line placement pos ition evaluation. FINDINGS: Inspiration is poor. Heart size is minimally enlarged. Minimal biapical pleural thickening. Right jug ulovenous catheter has been placed with the tip extending into the distal superior vena cava without pneumothorax or pleural effusion. IMPRESSION: Right jugulovenous catheter in place without pneumothorax or pleural effusion. Poor inspiratory effor t. Minimal cardiomegaly. No evidence for other significant acute process. POS: [facility]
[2017-05-05] MEDS: Ondansetron PF 4 MG/2 ML Vial IVP PRN (16:53)
--- NOTE | 2017-05-05 17:37 | PRG ---
DATE OF SERVICE: 05/05/2017 SUBJECTIVE: Having nausea and vomiting for the past few hours. No abdominal pain, no dyspnea, no di arrhea. OBJECTIVE: VITAL SIGNS: T-max 100.4 yesterday, currently 100.3 and now 99.1, blood pressure 116/85, pulse 88, r espirations 18, O2 sat 96%. The patient was vomiting when I went to see him. He was awake and orien davon. SKIN: Shows the left BKA stump site with the revision of the BKA sutures covering most of the areas except for the lateral aspect where there is fresh red tissue at the base and an open area. LUNGS: Clear. HEART: S1, S2, regular rate. ABDOMEN: Soft, not distended or tender. LABORATORY: White cell count down to 10.6, hemoglobin 7.9, platelets 44 and creatinine 0.81, potassi um 3.0. Microbiology with polymicrobial carrie with anaerobes, Staphylococcus aureus which is methici llin susceptible and number of gram negatives Enterococcus. Pathology is still pending from the seco nd procedure. The first procedure pathology with ischemic ulceration with viable margins. ASSESSMENT AND DISCUSSION: Type 2 diabetes, necrotizing fasciitis of left foot, status post guilloti ne amputation, now revision of the amputation site. There has been decrease in white cell count. He is still with low grade temperature elevation. In view of the number of organisms isolated, I have decided to switch him back to meropenem and continue until there is further reduction colony counts a nd resolution of temperature elevations. He has not been shown to be bacteremic. Therefore, I will not need long-term antimicrobial therapy.
[2017-05-05] MEDS: Famotidine 20 MG TAB PO SCH (21:08)
[2017-05-05] MEDS: Bacitracin Zinc 1 Packet TOP SCH (21:09)
--- NOTE | 2017-05-05 23:15 | PDOC.PN ---
- Subjective Encounter Start Date: 05/05/17 Encounter Start Time: 14:00 Subjective: attempted to round x2 on patient who was in the OR. Nsg notes rev, tyshawn ovn -: no new pt issues - Objective Resuscitation Status: Resuscitation Status FULL:Full Resuscitation Vital Signs & Weight: Vital Signs (12 hours) Temp 05/05/17 20:57 99.8 F H Weight Admit Weight 239 lb 1.6 oz Weight 239 lb 1.6 oz I&O: 05/04/17 05/05/17 05/06/17 06:59 06:59 06:59 Intake Total 1080 1440 125 Output Total 400 1200 500 Balance 680 240 -375 Result Diagrams: 05/05/17 04:57 05/05/17 04:57 Additional Labs: Accuchecks 05/05/17 05/05/17 16:43 05:40 POC Glucose 149 H 191 H Dx/Plan (1) Osteomyelitis of toe of left foot Code(s): M86.9 - OSTEOMYELITIS, UNSPECIFIED Status: Acute Comment: s/p amputation of toe (2) Diabetes type 2, controlled Code(s): E11.9 - TYPE 2 DIABETES MELLITUS WITHOUT COMPLICATIONS Status: Chronic (3) Obesity (BMI 30.0-34.9) Code(s): E66.9 - OBESITY, UNSPECIFIED Status: Chronic - Plan * osteomyelitis * apprec surg c/s * currently in OR for further revision/ debridement * close blood glc control * apprec ID c/s re: abx sinusitis type symptoms, resolved * symptomatic management: guaifenisen, nasal saline, continue to monitor diabetes type 2, stable * mgmt as per above, insulin depressive affect * continue to monitor phimosis * appreciate urology c/s * currently in OR for circumcision diet: diabetic activity: as per surg Review of Systems - Medications/Allergies Allergies/Adverse Reactions: Allergies Allergy/AdvReac Type Severity Reaction Status Date / Time No Known Allergies Allergy Verified 04/30/17 22:05 Medications: Current Medications Acetaminophen (Tylenol) 650 mg PO Q4H PRN PRN Reason: Headache/Fever or Pain Last Admin: 05/05/17 05:42 Dose: 650 mg Bacitracin Zinc (Bacitracin) [address] Stop: 05/12/17 09:01 Last Admin: 05/06/17 01:17 Dose: Not Given Calcium Carbonate (Tums) 500 mg PO Q6H PRN PRN Reason: Heartburn or Indigestion Last Admin: 05/01/17 17:07 Dose: 500 mg Dextrose/Water (Dextrose 50%) 25 gm SLOW IVP PRN PRN PRN Reason: Hypoglycemia Diphenhydramine HCl (Benadryl) 25 mg IVP Q3H PRN PRN Reason: Itching Diphenhydramine HCl (Benadryl) 25 mg PO Q3H PRN PRN Reason: Itching Diphenhydramine HCl (Benadryl) 25 mg IM Q3H PRN PRN Reason: Itching Enoxaparin Sodium (Lovenox) 40 mg SC 0900 [facility] Last Admin: 05/05/17 12:34 Dose: Not Given Famotidine (Pepcid) 20 mg PO QPM [facility] Last Admin: 05/05/17 21:08 Dose: 20 mg Glucagon (Glucagon) 1 mg IM PRN PRN PRN Reason: Hypoglycemia Guaifenesin (Mucinex) 600 mg PO Q12HR PRN PRN Reason: Congestion Guaifenesin/Dextromethorphan (Robitussin Dm) 15 ml PO Q4H PRN PRN Reason: Cough Last Admin: 05/01/17 00:35 Dose: 15 ml Dextrose/Water (D5w) 1,000 mls @ 0 mls/hr IV .Q0M PRN; As Directed PRN Reason: Hypoglycemia Insulin Detemir 10 units/ (Miscellaneous Medication) 0.1 mls @ 0 mls/hr SC BID [facility] Last Admin: 05/05/17 21:17 Dose: Not Given Fentanyl Citrate 2,000 mcg/ (Sodium Chloride) 100 mls @ 0 mls/hr IV INF PRN; As Directed PRN Reason: Pain Last Admin: 05/02/17 17:54 Dose: 100 mls Meropenem 1 gm/ Sterile Water 20 mls @ 240 mls/hr SLOW IVP 0500,1300,2100 [facility] Last Admin: 05/05/17 21:08 Dose: 20 mls Potassium Chloride 20 meq/ (Lactated Ringer's) 1,010 mls @ 100 mls/hr IV .Q10H6M [facility] Last Admin: 05/05/17 21:09 Dose: 1,010 mls Insulin Human Lispro (Humalog) 0 units SC .MODERATE SLIDING SC PRN PRN Reason: Moderate Correctional Scale Last Admin: 05/03/17 07:26 Dose: 2 unit Insulin Human Lispro (Humalog) 0 units SC .BEDTIME SLIDING SC PRN PRN Reason: Bedtime Correctional Scale Last Admin: 04/30/17 21:42 Dose: 2 unit Naloxone HCl (Narcan) 0.2 mg IV Q5MIN PRN PRN Reason: Opiate Reversal Ondansetron HCl (Zofran) 4 mg IVP Q6H PRN PRN Reason: Nausea/Vomiting Last Admin: 05/05/17 16:53 Dose: 4 mg Phenol (Chloraseptic [place] 180 Ml Bot) 0 ml PO PRN PRN PRN Reason: SORE THROAT Last Admin: 05/03/17 04:50 Dose: 1 spr Promethazine HCl (Phenergan) 12.5 mg IM Q4H PRN PRN Reason: Nausea/Vomiting Senna (Senokot) 2 tab PO HSPRN PRN PRN Reason: Constipation Sodium Chloride ([place] Nasal [place] 0.65%) 0 ml EA NARE TID PRN PRN Reason: Nasal Congestion Sodium Chloride (Flush - Normal Saline) 10 ml IVF Q12HR [facility] Last Admin: 05/05/17 21:09 Dose: 10 ml Sodium Chloride (Flush - Normal Saline) 10 ml IVF PRN PRN PRN Reason: Saline Flush Tamsulosin HCl (Flomax) 0.4 mg PO DAILY [facility] Last Admin: 05/05/17 09:14 Dose: 0.4 mg Zolpidem Tartrate (Ambien) 5 mg PO HSPRN PRN PRN Reason: Insomnia
--- NOTE | 2017-05-05 23:54 | OP ---
DATE OF PROCEDURE: 05/05/2017 PREOPERATIVE DIAGNOSIS: Phimosis. POSTOPERATIVE DIAGNOSIS: Phimosis. PROCEDURE: Circumcision. ANESTHESIA: General with endotracheal tube as well as penile block. COMPLICATIONS: None. DRAIN REMAINING: None. SPECIMEN: Foreskin. COMPLICATIONS: None. BLOOD LOSS: Minimal. HISTORY OF PRESENT ILLNESS: The patient is a 47-year-old male who was admitted with left lower extre mity infection status post debridement and expecting further debridement with Dr. Vyas. He consult ed regarding the patient's obvious phimosis and inability to place a catheter during a prior operatio n, so requested to have circumcision to be coordinated at the same time as another debridement. PROCEDURE IN DETAIL: The patient was brought into the room by Anesthesia, laid on the table in supin e position. After general anesthetic, he was positioned supine and prepped and draped in sterile fas hion. A penile block had been given using 10 mL of Marcaine. Two circumferential incisions were mad e after creating a dorsal slit in order to retract and expose the glans, which was then further prepp ed with Betadine. The excess skin was sharply excised and the two skin edges were then reapproximate d using 3-0 and 4-0 chromic in interrupted fashion. Of note, the prepuce itself was significantly lo w on the shaft based on the patient's suprapubic fat pad and so in order to adequately remove any con stricting portion, the skin had to be taken back slightly lower than or more proximal than would norm ally be desired other than that and the obvious needs for dorsal slit, the circumcision was performed without difficulty. Bacitracin and a sterile dressing were applied. The patient tolerated the proc edure well and was then kept asleep and Dr. Vyas proceeded with his debridement and will dictate th at portion accordingly.
[2017-05-06] MEDS: Bacitracin Zinc 1 Packet TOP SCH ×3 (01:17→20:57)
[2017-05-06] MEDS: Meropenem 1 GM in Sterile Water 20 ML SLOW IVP SCH ×3 (06:03→20:57)
[2017-05-06] MEDS: Potassium Chloride 20 MEQ in Lactated Ringer's 1,000 ML IV SCH ×2 (06:03→14:00)
[2017-05-06] MEDS: Ondansetron PF 4 MG/2 ML Vial IVP PRN (06:09)
[2017-05-06 06:40] LABS: #Eosinphils 0.1 thou/uL (0.0-0.7); #Lymphocytes 1.1 thou/uL (1.20-3.40); #Monocytes 1.2 thou/uL (0.11-0.59); #Neutrophils 12.9 thou/uL (1.40-6.50); %Basophils 0.2 % (0.0-1.0); %Eosinophils 0.5 % (0.0-10.0); %Lymphocytes 7.4 % (21.0-51.0); %Monocytes 7.6 % (0.0-10.0); %Neutrophils 84.3 % (42.0-75.0); Hemoglobin 8.4 g/dL (14.0-18.0); Mean Corpuscular HGB CONC 32.8 g/dL (32.0-36.0); Mean Corpuscular Hemoglobin 28.7 pg (27.0-31.0); Mean Corpuscular Volume 87.6 fl (80.0-94.0); Mean Platelet Volume 5.9 fL (7.4-10.4); Platelet Count 534 thou/uL (130-400); RBC Distribution Width 14.2 % (11.5-14.5); Red Blood Cell (RBC) Count 2.92 mill/uL (4.70-6.10); White Blood Cell (WBC) Count 15.3 thou/uL (4.8-10.8)
[2017-05-06 06:55] LABS: Anion Gap 12 mmol/L (10-20); BUN (Urea Nitrogen) 5 mg/dL (8.9-20.6); Calc. Creatinine Clearance 187 mL/min (70-130); Calcium 7.4 mg/dL (7.8-10.44); Carbon Dioxide 24 mmol/L (22-29); Chloride 101 mmol/L (98-107); Estimated GFR-MDRD Greater than 90; Glucose 145 mg/dL (70-105); Potassium 3.6 mmol/L (3.5-5.1); Sodium 133 mmol/L (136-145)
--- NOTE | 2017-05-06 08:50 | OP ---
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 Perera addressing this. . PROCEDURE: Left [id number]-[id number] amputation, complex closure conversion from guillotine amputation to below knee amputation with wound left open partially and wound VAC application by Wound Care team. Michelle Perera performed a circumcision under the same anesthetic. ANESTHETIC: General anesthesia. SURGEON: Dr. Paul Vyas ESTIMATED BLOOD LOSS: 200 mL. BLOOD TRANSFUSED: 1 unit of blood. PROCEDURE: The patient was taken to the operating room under general anesthesia, Dr. Amie Perera in itially performed a circumcision. After this procedure, the left lower extremity was prepared with B etadine, draped in routine fashion. The wound VAC dressing had been removed and there was no purulen ce. Conversion of guillotine amputation to a below knee amputation was undertaken. The skin fascial flaps dissected free, the below the knee amputation was carried out at a higher level and at the temi ected level the muscular bundles were divided with the cautery. Vascular bundles were divided betwee n clamps and ligated with 2-0 silk ties. Tibia dissected free, periosteum elevated proximally and ti kenna transected with Gigli saw, beveling the anterior edge cephalad and the fibula cut about an inch a chely the cut edge of the tibia. Wound debrided, muscular bundles debrided more proximally where odette cated, pulse irrigation performed for 3 liters of the wound. The patient's wound extended up into th e distal thigh laterally and this was pulse irrigated. There was no purulence visible. At this poin t, skin was resected for appropriate and fascia approximated with interrupted [id number] sutures of 2-0 Vicryl, and skin approximated with 2-0 Prolene vertical mattress sutures. This was approxima davon loosely laterally and medially there were areas that could not be closed and that were left open for wound VAC application. The goal was to provide the patient a below the knee amputation stump for better mobility with prosthesis. Good hemostasis was noted and obtained. Wound irrigated. Wound C are team then arrived and placed a wound VAC. The plan is to re-explore the wound with a wound VAC change in 48 hours. This wound will be washed a nd a wound VAC reapplied. The patient will need intravenous antibiotics for a period of time and a H ickman catheter will likely be applied anticipating this.
[2017-05-06] MEDS: Tamsulosin HCl 0.4 MG CAP PO SCH (09:56)
[2017-05-06] MEDS: Enoxaparin Sodium 40 MG/0.4 ML SYRINGE SC SCH (09:56)
[2017-05-06] MEDS: Acetaminophen 325 MG TAB PO PRN (10:00)
--- NOTE | 2017-05-06 10:29 | PRG ---
DATE OF SERVICE: 05/06/2017 SUBJECTIVE: The patient did well overnight. He has no complaints about his urination. He has been voiding freely. He has no significant pain. OBJECTIVE: VITAL SIGNS: He has had a T-max of 100.4, heart rate in the 90s-100s, satting 94% on room air, blood pressure 160/76. GENITOURINARY: The penile wrap has fallen off and his incision and penis are buried within the suprapubic fat pad with only the tip of the glans noted. It was difficult to expose this fully, but I was able to do so to see the suture line, which was healing fine. However, I am concerned that if he does not do this regularly, then he will have another phimotic component that just buries the tip of the penis, so I reviewed with him the pressure that he must apply to ensure that the penis does not become buried. ASSESSMENT: 47-year-old male status post circumcision for severe phimosis, now with buried penis, but still functional at this time. Ensure pressure applied to the suprapubic fat pad and base of the penis to expose the glans on a daily basis. CRISTINE
[2017-05-06] MEDS ORDERED: Fentanyl 100 MCG/2 ML VIAL SLOW IVP PRN (12:07)
--- NOTE | 2017-05-06 12:12 | PDOC.PN ---
- Subjective Encounter Start Date: 05/06/17 Encounter Start Time: 12:04 CC: Left leg infection sub: Pt NOT EATING WELL PER RN. - Objective Resuscitation Status: Resuscitation Status FULL:Full Resuscitation Vital Signs & Weight: Vital Signs (12 hours) Temp Pulse Resp BP Pulse Ox 05/06/17 08:00 100.7 F H 94 18 165/77 H 97 05/06/17 04:41 100.4 F H 99 18 160/76 H 94 L 05/06/17 00:33 98.8 F 107 H 18 124/71 94 L Weight Admit Weight 239 lb 1.6 oz Weight 239 lb 1.6 oz I&O: 05/05/17 05/06/17 05/07/17 06:59 06:59 06:59 Intake Total 1440 525 Output Total 1200 1300 Balance 240 -775 Result Diagrams: 05/06/17 06:16 05/06/17 06:16 Additional Labs: Accuchecks 05/06/17 05/06/17 05/05/17 11:28 04:23 20:31 POC Glucose 166 H 141 H 132 H 05/05/17 16:43 POC Glucose 149 H Phys Exam - Physical Examination Constitutional: NAD HEENT: moist MMs Neck: no JVD Respiratory: no wheezing, no rales, no rhonchi Cardiovascular: RRR, no significant murmur Gastrointestinal: soft, non-tender, no distention left BKA Neurological: non-focal Alert, follows commands Psychiatric: normal affect Dx/Plan - Plan Pt is 47 yrs old male 1) Osteomyelitis of toe of left foot Code(s): M86.9 - OSTEOMYELITIS, UNSPECIFIED Status: Acute Comment: s/p amputation of toe (2) Diabetes type 2, controlled Code(s): E11.9 - TYPE 2 DIABETES MELLITUS WITHOUT COMPLICATIONS Status: Chronic (3) Obesity (BMI 30.0-34.9) Code(s): E66.9 - OBESITY, UNSPECIFIED Status: Chronic - Plan * osteomyelitis * apprec surg c/s * S/P BKA. Management per surgery * Reviewed cultures. Continue meropenem * apprec ID c/s. sinusitis type symptoms, resolved * symptomatic management:nasal saline, continue to monitor diabetes type 2, stable * continue insulin sliding scale. Will dc schedueld insulin due to decrease po intake depressive affect * continue to monitor phimosis * appreciate urology c/s * management per them diet: diabetic activity: as per surg case d/w pt & RN
[2017-05-06] MEDS: Insulin Detemir 100 UNITS/ML 10 UNITS in Pre-Filled Syringe SC SCH (13:29)
[2017-05-06] MEDS: HYDROcodone/Acetaminophen 10/325 mg Tablet PO PRN ×2 (13:58→18:54)
--- NOTE | 2017-05-06 18:34 | PRG ---
DATE OF SERVICE: 05/06/2017 SUBJECTIVE: Laureano Cooley is doing well today. OBJECTIVE: VITAL SIGNS: 97.8, 86, 124/58. LUNGS: Clear to auscultation. CARDIAC: Regular rate and rhythm without murmur or gallop. ABDOMEN: Soft. The patient has dressings. EXTREMITIES: Left BKA stump are clean and dry. The wound VAC is in place. LABORATORY DATA: White count 15, hemoglobin 8.4. Sodium 133, potassium 3.6, BUN 5, creatinine 0.74. ASSESSMENT AND PLAN: Status post left below the knee amputation. The patient will need prolonged IV antibiotics. His acute kidney injury has resolved. At this point, we will plan evaluation of a lef t below the knee amputation stump tomorrow. Wound wash VAC change under anesthesia and plan placemen t of a Rea catheter due to previous history of above the knee amputation and diabetes. We will a void PICC lines in midline. I have discussed with Dr. Dumont.
[2017-05-06] MEDS: Famotidine 20 MG TAB PO SCH (20:57)
[2017-05-07] MEDS: HYDROcodone/Acetaminophen 10/325 mg Tablet PO PRN ×5 (00:15→18:17)
[2017-05-07] MEDS: Potassium Chloride 20 MEQ in Lactated Ringer's 1,000 ML IV SCH ×2 (00:16→15:00)
[2017-05-07] MEDS: Meropenem 1 GM in Sterile Water 20 ML SLOW IVP SCH ×3 (05:00→20:31)
--- NOTE | 2017-05-07 07:55 | PDOC.PN ---
- Subjective Encounter Start Date: 05/07/17 Encounter Start Time: 14:45 Subjective: Patient back from OR. Feeling well. No pain in LE. No fever. - Objective Resuscitation Status: Resuscitation Status FULL:Full Resuscitation MAR Reviewed: Yes Vital Signs & Weight: Vital Signs (12 hours) Temp Pulse Resp BP Pulse Ox 05/07/17 05:06 98.2 F 84 16 125/64 93 L 05/07/17 04:00 98.2 F 84 16 124/64 93 L 05/07/17 00:05 98.7 F 93 16 138/72 93 L 05/06/17 20:15 98.7 F 93 16 05/06/17 20:12 98.9 F 92 17 117/58 L 93 L Weight Admit Weight 239 lb 1.6 oz Weight 239 lb 1.6 oz I&O: 05/06/17 05/07/17 05/08/17 06:59 06:59 06:59 Intake Total 525 2300 Output Total 1300 1525 Balance -775 775 Result Diagrams: 05/06/17 06:16 05/06/17 06:16 Additional Labs: Accuchecks 05/07/17 05/06/17 05/06/17 04:58 20:23 16:21 POC Glucose 130 H 182 H 165 H 05/06/17 11:28 POC Glucose 166 H Phys Exam - Physical Examination Constitutional: NAD HEENT: moist MMs Respiratory: no wheezing, no rales, no rhonchi, clear to auscultation bilateral Cardiovascular: RRR, no significant murmur Gastrointestinal: soft, positive bowel sounds Neurological: non-focal Psychiatric: normal affect, A&O x 3 Dx/Plan (1) Osteomyelitis of toe of left foot Code(s): M86.9 - OSTEOMYELITIS, UNSPECIFIED Status: Acute Comment: with infection progression to left thigh, s/p BKA and left thigh wound I&D (2) Diabetes type 2, controlled Code(s): E11.9 - TYPE 2 DIABETES MELLITUS WITHOUT COMPLICATIONS Status: Chronic (3) Obesity (BMI 30.0-34.9) Code(s): E66.9 - OBESITY, UNSPECIFIED Status: Chronic (4) Phimosis Code(s): N47.1 - PHIMOSIS Status: Chronic Comment: s/p circumcision - Plan cont current plan of care, continue antibiotics, PT/OT * . - Discharge Day Encounter end time: 15:00
[2017-05-07] MEDS ORDERED: Sodium Chloride 0.9% 1,000 ML IV SCH (08:00)
[2017-05-07] MEDS: Tamsulosin HCl 0.4 MG CAP PO SCH (08:22)
[2017-05-07] MEDS: Bacitracin Zinc 1 Packet TOP SCH ×2 (08:26→20:29)
[2017-05-07] MEDS: Enoxaparin Sodium 40 MG/0.4 ML SYRINGE SC SCH (08:27)
--- NOTE | 2017-05-07 09:21 | PRG ---
DATE OF SERVICE: 05/07/2017 SUBJECTIVE: The patient has done well overnight. He has practiced in pressing the suprapubic fat pad down and around his phallus and even applied some of the bacitracin without significant difficulty. His vitals have been stable with no significant temperature. PHYSICAL EXAMINATION: I monitored as he pushed a suprapubic fat pad down and around and was able to visualize the incision line itself and he was able to do this easily. ASSESSMENT AND PLAN: This is a 47-year-old male status post circumcision for severe phimosis. Postoperative day #2 from circumcision as well as multiple other health issues keeping him in house for now. He should continue multiple times a day the pressing down of the suprapubic fat pad for the next month and then daily for cleaning purposes indefinitely and this should help prevent a buried penis and further phimosis of the suprapubic fat pad that might trap the penis. He understands this. CRISTINE
[2017-05-07] MEDS ORDERED: Lidocaine 1% w/Epinephrine 1:200K 30 ML VIAL ONE (10:05)
[2017-05-07] MEDS ORDERED: Bupivacaine PF 0.5% 30 ML VIAL ONE (10:05)
[2017-05-07] MEDS ORDERED: Fentanyl 100 MCG/2 ML VIAL ONE ×2 (10:19→12:16)
[2017-05-07] MEDS ORDERED: Promethazine HCl 25 MG/ML VIAL SLOW IVP PRN (11:35)
[2017-05-07] MEDS ORDERED: Ondansetron HCl/PF 4 MG/2 ML Vial IVP PRN (11:35)
[2017-05-07] MEDS ORDERED: Promethazine HCl 25 MG/ML VIAL IM PRN (11:35)
--- NOTE | 2017-05-07 11:58 | OP ---
DATE OF PROCEDURE: 05/07/2017 PREOPERATIVE DIAGNOSES: Necrotizing infection, gas gangrene left leg, status post [id number]-[id number]-rosq amp utation wound partially left open in need of long-term intravenous antibiotics and wound VAC applicat ion and wound washout. POSTOPERATIVE DIAGNOSES: Necrotizing infection, gas gangrene left leg, status post [id number]-vwq-enbd am putation wound partially left open in need of long-term intravenous antibiotics and wound VAC applica tion and wound washout. PROCEDURE: Left IJ cuffed tunneled Rea catheter, ultrasound fluoroscopy used for placement. Lef t BKA stump wound washout with partial closure, wound VAC application by the Wound Care team. SURGEON: Dr. Paul Vyas ANESTHESIA: General. Local 0.5% Marcaine, 30 mL, mixed with 2% Xylocaine 20 mL with epinephrine. PROCEDURE IN DETAIL: The patient was taken to the operating room where under general anesthesia, nec k and chest were clipped of hair, prepared with ChloraPrep, draped in routine fashion. Local anesthe tic infiltrated into skin and subcutaneous tissue about the operative site. Using ultrasound, left i nternal jugular vein was cannulated with a trocar catheter. J-wire threaded. Trocar catheter remove d. Skin incised and enlarged sharply. Stab incision made over the left chest using the tunneling de vice, the Rea dual-lumen catheter tunneled between the two incisions, placing the fabric cuff reba eath the skin exit site. Dilator and pull-away sheath under fluoroscopic visualization placed over t he J-wire in the superior vena cava and J wire and dilator removed. Catheter tailored to length, dinorah willard through the pull-away sheath and pull-away sheath removed. Fluoroscopically, catheter noted to b e in good position. Platysma approximated with 4-0 Monocryl, skin with subdermal 4-0 Monocryl and De rmaGlue and sterile dressing applied. Each port aspirated blood and flushed with saline solution, he parinized. The patient tolerated the procedure well. Left lower extremity wound VAC removed and leg washed with Betadine and prepped and then pulse irriga davon with 2-1/2 liters of saline solution. I then approximated the skin with interrupted vertical mat tress sutures of 2-0 Prolene and fascia with 2-0 Vicryl along the combined segment length of approxim ately 7 cm. Wound, otherwise left open for wound VAC application and lateral opening BKA stump line and more proximal lateral BKA stump tunnel up to the thigh. The patient tolerated the procedure well .
[2017-05-07] MEDS ORDERED: traMADol HCl 50 MG TAB PO PRN (12:08)
[2017-05-07] MEDS ORDERED: Acetaminophen 500 MG TAB PO PRN (12:08)
--- NOTE | 2017-05-07 12:34 | RAD ---
PORTABLE CHEST: History: Central line placement. Comparison: 05-05-17 FINDINGS: Right sided jugular line remains in place. There has now been placement of a left sided central line. The catheter tip is at the level of the confluence of the brachiocephalic vein and superior vena cav a. No signs of pneumothorax. IMPRESSION: Placement of left sided central line, catheter tip overlying the proximal superior vena cava without signs of pneumothorax. POS: [facility]
--- NOTE | 2017-05-07 12:48 | PQF ---
CLINICAL DOCUMENTATION IMPROVEMENT CLARIFICATION FORM: ICD-10 Updated PLEASE DO AN ADDENDUM TO THE PROGRESS NOTE WITH ANY DOCUMENTATION UPDATES OR ADDITIONS AND CARRY THROUGH TO DC SUMMARY. THANK YOU. DATE: 05/07 ATTN: DR. LILIAN MCDOWELL Please exercise your independent, professional judgment in responding to the clarification form. Clinical indicators are provided on the bottom of this form for your review. Please check appropriate box(es): [ X ] Sepsis due to: (Pna, UTI, gangrenous gall bladder, etc.) ___Left foot and leg gas gangrene [ ] Severe sepsis with acute organ dysfunction of: (Examples: respiratory failure, encephalopathy, acute kidney failure, other) [ ] Localized infection without sepsis [ ] Other diagnosis [ ] Unable to determine For continuity of documentation, please document condition throughout progress notes and discharge summary. Thank You. CLINICAL INDICATORS - SIGNS / SYMPTOMS / LABS ER PRESENTATION 04/30: PT REPORTS FEVER X2 DAYS HR: 89-105 RR: 20-25 BP: 87/53 - 123/61 ER PHYSICIAN FINAL DIAGNOSES 04/30: SEPSIS GENERAL SURGEON CONSULT DOCUMENTATION 04/30: HX PRESENT ILLNESS: ...THE PT PRESENTED TO ER FOR COMPLAINTS OF L LE CELLULITIS & SEPSIS. ...HE MAY VERY WELL NEED A GUILLOTINE AMPUTATION OF THE LEFT LEG & SUBSEQUENT DEFINITIVE CLOSURE AFTER RESOLUTION OF HIS SEPSIS. ASSESSMENT & PLAN: SEPTIC DIABETIC LEFT FOOT W/GAS GANGRENE WBC: 24.2 (04/30, DAY OF ADMIT) T: 101.9 (W/IN 24 HRS OF ADMIT) RISK FACTORS: NECROTIZING FASCIITIS LLE GAS GANGRENE DM II ACUTE KIDNEY INJURY TREATMENTS: L AKA LLE WOUND DEBRIDEMENT WOUND VAC INFECTIOUS DX CONSULT IV ANTIBIOTICS (ZOSYN & VANCOMYCIN 04/30 - 05/01; ROCEPHIN 05/01 - 05/03; MEROPENEM 05/03 - PRESENT) IVF (NS 04/30 - PRESENT) SERIAL LABS LLE WOUND CULTURES THANK YOU! Danita (This form is maintained as a part of the permanent medical record) 2014 [employer]. All Rights Reserved Danita Graff RN, BSN [email or web address] Office: [phone] [facility]ITAL[facility]
[2017-05-07] MEDS ORDERED: ePHEDrine/0.9% NaCl/PF SYRINGE 50 mg/10 ml ONE (15:21)
[2017-05-07] MEDS ORDERED: Ondansetron PF 4 MG/2 ML Vial ONE (15:21)
[2017-05-07] MEDS ORDERED: PROPOFOL 200 MG/20 ML VIAL ONE (15:21)
[2017-05-07] MEDS ORDERED: PHENYLEPHRINE-NS 100 MCG/ML 10 ML SYRINGE ONE (15:21)
[2017-05-07] MEDS: 1/2 NS w/KCL 20 mEq 1,000 ML IV SCH (18:20)
[2017-05-07] MEDS: Famotidine 20 MG TAB PO SCH (20:29)
[2017-05-07] MEDS: Gabapentin 300 MG CAP PO SCH (20:29)
[2017-05-08] MEDS: HYDROcodone/Acetaminophen 10/325 mg Tablet PO PRN ×5 (01:16→22:36)
[2017-05-08] MEDS: Meropenem 1 GM in Sterile Water 20 ML SLOW IVP SCH ×3 (05:30→21:00)
[2017-05-08] MEDS: 1/2 NS w/KCL 20 mEq 1,000 ML IV SCH ×2 (05:41→11:53)
[2017-05-08 06:00] LABS: #Eosinphils 0.1 thou/uL (0.0-0.7); #Lymphocytes 1.6 thou/uL (1.20-3.40); #Monocytes 0.7 thou/uL (0.11-0.59); #Neutrophils 11.2 thou/uL (1.40-6.50); %Basophils 0.1 % (0.0-1.0); %Eosinophils 0.7 % (0.0-10.0); %Lymphocytes 11.4 % (21.0-51.0); %Monocytes 5.5 % (0.0-10.0); %Neutrophils 82.3 % (42.0-75.0); Hemoglobin 7.6 g/dL (14.0-18.0); Mean Corpuscular HGB CONC 31.8 g/dL (32.0-36.0); Mean Corpuscular Hemoglobin 28.4 pg (27.0-31.0); Mean Corpuscular Volume 89.3 fl (80.0-94.0); Mean Platelet Volume 5.7 fL (7.4-10.4); Platelet Count 506 thou/uL (130-400); RBC Distribution Width 14.3 % (11.5-14.5); Red Blood Cell (RBC) Count 2.68 mill/uL (4.70-6.10); White Blood Cell (WBC) Count 13.6 thou/uL (4.8-10.8)
[2017-05-08 06:11] LABS: Anion Gap 10 mmol/L (10-20); BUN (Urea Nitrogen) 7 mg/dL (8.9-20.6); Calc. Creatinine Clearance 190 mL/min (70-130); Calcium 7.7 mg/dL (7.8-10.44); Carbon Dioxide 27 mmol/L (22-29); Chloride 103 mmol/L (98-107); Estimated GFR-MDRD Greater than 90; Glucose 148 mg/dL (70-105); Potassium 4.2 mmol/L (3.5-5.1); Sodium 136 mmol/L (136-145)
[2017-05-08] MEDS: HumaLOG 300 UNITS/3 ML VIAL SC PRN ×3 (06:44→16:39)
[2017-05-08] MEDS ORDERED: Activase 2 MG VIAL CATH SCH (08:00)
[2017-05-08] MEDS: Polyethylene Glycol 3350 17 GM Packet PO SCH (09:46)
[2017-05-08] MEDS: Gabapentin 300 MG CAP PO SCH ×2 (09:46→21:01)
[2017-05-08] MEDS: Zinc Sulfate 220 MG CAP PO SCH (09:47)
[2017-05-08] MEDS: Bacitracin Zinc 1 Packet TOP SCH ×2 (09:47→21:01)
[2017-05-08] MEDS: Multivit, Therapeutic 1 TAB PO SCH (09:47)
[2017-05-08] MEDS: Tamsulosin HCl 0.4 MG CAP PO SCH (09:50)
[2017-05-08] MEDS: Enoxaparin Sodium 40 MG/0.4 ML SYRINGE SC SCH (09:51)
--- NOTE | 2017-05-08 14:07 | PDOC.PN ---
- Subjective Encounter Start Date: 05/08/17 Encounter Start Time: 13:00 Patient is seen today, alert and oriented. He is on IV antibiotics, broad spectrum Waiting on ID. - Objective Resuscitation Status: Resuscitation Status FULL:Full Resuscitation MAR Reviewed: Yes Vital Signs & Weight: Vital Signs (12 hours) Temp Pulse Resp BP Pulse Ox 05/08/17 11:27 96.6 F L 90 16 130/63 92 L 05/08/17 07:28 97.4 F L 93 16 120/83 92 L 05/08/17 04:00 98.8 F 99 19 136/61 90 L Weight Admit Weight 239 lb 1.6 oz Weight 239 lb 1.6 oz I&O: 05/07/17 05/08/17 05/09/17 06:59 06:59 06:59 Intake Total 2300 3825 Output Total 1525 1800 Balance 775 2024 Result Diagrams: 05/08/17 05:35 05/08/17 05:35 Additional Labs: Accuchecks 05/08/17 05/08/17 05/07/17 11:58 05:37 20:52 POC Glucose 170 H 160 H 163 H 05/07/17 16:40 POC Glucose 140 H Phys Exam - Physical Examination HEENT: PERRLA, moist MMs Neck: no nodes, no JVD Respiratory: no wheezing, no rales Cardiovascular: RRR, no significant murmur Gastrointestinal: soft, non-tender Musculoskeletal: edema present (right leg, left BKA on wound vac) Neurological: non-focal, normal sensation Psychiatric: normal affect Dx/Plan (1) Phimosis Code(s): N47.1 - PHIMOSIS Status: Chronic Comment: s/p circumcision, stbale no bleding. (2) Osteomyelitis of toe of left foot Code(s): M86.9 - OSTEOMYELITIS, UNSPECIFIED Status: Acute Comment: with infection progression to left thigh, s/p BKA and left thigh wound I&D, continued on Meropenam. will narow down once okyed with ID. (3) Diabetes type 2, controlled Code(s): E11.9 - TYPE 2 DIABETES MELLITUS WITHOUT COMPLICATIONS Status: Chronic Comment: well controlled, will continue with SSI. (4) Obesity (BMI 30.0-34.9) Code(s): E66.9 - OBESITY, UNSPECIFIED Status: Chronic - Plan cont current plan of care, plan discussed w/ family, suresh catheter, continue antibiotics, PT/OT, DVT proph w/SCDs * . - Discharge Day Encounter end time: 13:30 Review of Systems - Review of Systems Constitutional: negative: fever, chills, sweats, weakness, malaise, other Eyes: negative: Pain, Vision Change, Conjunctivae Inflammation, Eyelid Inflammation, Redness, Other ENT: negative: Ear Pain, Ear Discharge, Nose Pain, Nose Discharge, Nose Congestion, Mouth Pain, Mouth Swelling, Throat Pain, Throat Swelling, Other Respiratory: negative: Cough, Dry, Shortness of Breath, Hemoptysis, SOB with Excertion, Pleuritic Pain, Sputum, Wheezing Cardiovascular: negative: chest pain, palpitations, orthopnea, paroxysmal nocturnal dyspnea, edema, light headedness, other Gastrointestinal: negative: Nausea, Vomiting, Abdominal Pain, Diarrhea, Constipation, Melena, Hematochezia, Other Musculoskeletal: negative: Neck Pain, Shoulder Pain, Arm Pain, Back Pain, Hand Pain, Leg Pain, Foot Pain, Other - Medications/Allergies Allergies/Adverse Reactions: Allergies Allergy/AdvReac Type Severity Reaction Status Date / Time No Known Allergies Allergy Verified 04/30/17 22:05 Medications: Current Medications Acetaminophen (Tylenol) 650 mg PO Q4H PRN PRN Reason: Headache/Fever or Pain Last Admin: 05/06/17 10:00 Dose: 650 mg Acetaminophen (Tylenol) 1,000 mg PO Q6H PRN PRN Reason: Moderate to Severe Pain (6-10) Hydrocodone Bitart/Acetaminophen ([place] 10/325) 1 tab PO Q4H PRN PRN Reason: Mild Pain (2-4) Last Admin: 05/08/17 09:48 Dose: 1 tab Hydrocodone Bitart/Acetaminophen ([place] 10/325) 2 tab PO Q4H PRN PRN Reason: Moderate to Severe Pain (5-10) Last Admin: 05/07/17 05:00 Dose: 2 tab Bacitracin Zinc (Bacitracin) [address] Stop: 05/12/17 09:01 Last Admin: 05/08/17 09:47 Dose: 1 pk Calcium Carbonate (Tums) 500 mg PO Q6H PRN PRN Reason: Heartburn or Indigestion Last Admin: 05/01/17 17:07 Dose: 500 mg Dextrose/Water (Dextrose 50%) 25 gm SLOW IVP PRN PRN PRN Reason: Hypoglycemia Diphenhydramine HCl (Benadryl) 25 mg IVP Q3H PRN PRN Reason: Itching Diphenhydramine HCl (Benadryl) 25 mg PO Q3H PRN PRN Reason: Itching Diphenhydramine HCl (Benadryl) 25 mg IM Q3H PRN PRN Reason: Itching Enoxaparin Sodium (Lovenox) 40 mg SC 0900 [facility] Last Admin: 05/08/17 09:51 Dose: 40 mg Famotidine (Pepcid) 20 mg PO QPM [facility] Last Admin: 05/07/17 20:29 Dose: 20 mg Fentanyl (Sublimaze) 50 mcg SLOW IVP Q1H PRN PRN Reason: Breakthrough Pain Gabapentin (Neurontin) 300 mg PO BID [facility] Last Admin: 05/08/17 09:46 Dose: 300 mg Glucagon (Glucagon) 1 mg IM PRN PRN PRN Reason: Hypoglycemia Guaifenesin (Mucinex) 600 mg PO Q12HR PRN PRN Reason: Congestion Guaifenesin/Dextromethorphan (Robitussin Dm) 15 ml PO Q4H PRN PRN Reason: Cough Last Admin: 05/01/17 00:35 Dose: 15 ml Heparin Sodium (Porcine) (Heparin Lock Flush 100 Units/Ml) 500 units IV BID [facility] Last Admin: 05/08/17 09:51 Dose: 500 unit Dextrose/Water (D5w) 1,000 mls @ 0 mls/hr IV .Q0M PRN; As Directed PRN Reason: Hypoglycemia Meropenem 1 gm/ Sterile Water 20 mls @ 240 mls/hr SLOW IVP 0500,1300,2100 [facility] Last Admin: 05/08/17 12:48 Dose: 20 mls Potassium Chloride/Sodium Chloride (1/2 Ns W/Kcl 20 Meq) 1,000 mls @ 100 mls/ hr IV .Q10H [facility] Last Admin: 05/08/17 11:53 Dose: 1,000 mls Insulin Human Lispro (Humalog) 0 units SC .MODERATE SLIDING SC PRN PRN Reason: Moderate Correctional Scale Last Admin: 05/08/17 11:59 Dose: 2 unit Insulin Human Lispro (Humalog) 0 units SC .BEDTIME SLIDING SC PRN PRN Reason: Bedtime Correctional Scale Last Admin: 04/30/17 21:42 Dose: 2 unit Multivitamins (Theragran) 1 tab PO DAILY [facility] Last Admin: 05/08/17 09:47 Dose: 1 tab Naloxone HCl (Narcan) 0.2 mg IV Q5MIN PRN PRN Reason: Opiate Reversal Ondansetron HCl (Zofran) 4 mg IVP Q6H PRN PRN Reason: Nausea/Vomiting Last Admin: 05/06/17 06:09 Dose: 4 mg Phenol (Chloraseptic [place] 180 Ml Bot) 0 ml PO PRN PRN PRN Reason: SORE THROAT Last Admin: 05/03/17 04:50 Dose: 1 spr Polyethylene Glycol (Miralax) 17 gm PO DAILY [facility] Last Admin: 05/08/17 09:46 Dose: 17 gm Senna (Senokot) 2 tab PO HSPRN PRN PRN Reason: Constipation Last Admin: 05/07/17 08:23 Dose: 2 tab Sodium Chloride ([place] Nasal [place] 0.65%) 0 ml EA NARE TID PRN PRN Reason: Nasal Congestion Sodium Chloride (Flush - Normal Saline) 10 ml IVF Q12HR [facility] Last Admin: 05/08/17 09:50 Dose: 10 ml Sodium Chloride (Flush - Normal Saline) 10 ml IVF PRN PRN PRN Reason: Saline Flush Last Admin: 05/08/17 12:48 Dose: 10 ml Tamsulosin HCl (Flomax) 0.4 mg PO DAILY [facility] Last Admin: 05/08/17 09:50 Dose: 0.4 mg Tramadol HCl (Ultram) 50 mg PO Q6H PRN PRN Reason: Pain Tramadol HCl (Ultram) 100 mg PO Q6H PRN PRN Reason: Pain Zinc Sulfate (Zinc Sulfate) 220 mg PO DAILY [facility] Last Admin: 05/08/17 09:47 Dose: 220 mg Zolpidem Tartrate (Ambien) 5 mg PO HSPRN PRN PRN Reason: Insomnia
--- NOTE | 2017-05-08 15:26 | PRG ---
DATE OF SERVICE: 05/08/2017 SUBJECTIVE: Laureano Cooley is doing well today. He feels well. OBJECTIVE: VITAL SIGNS: Temperature 96.6, pulse 91, blood pressure 130/63. LUNGS: Clear to auscultation. CARDIAC: Regular rate and rhythm without murmur or gallop. ABDOMEN: Soft, nontender. LABORATORY DATA: Hemoglobin 7.6, white count 13.6. Basic metabolic profile is normal. Accu-Cheks 1 30-170. Cultures of wound, Streptococcus staph, Prevotella - anaerobic. The patient with intravenou s antibiotics per Dr. Dumont. He has a Rea catheter. Central line has been removed. Wound VAC, left BKA stump looks good. He has some partially open wounds lateral left stump which should heal wi th a wound VAC. This would hopefully prevent infection in the stump and salvage of knee for easier a mbulation. Pain control was good. BONE DENSITY TECHNICIAN discontinued. The patient overall is doing well. Either it can be hep-l ock or TKO for IV antibiotic administration. The patient is ready to go to rehabilitation. On cary shirley's admission last week, consulted rehabilitation, and the patient told me he had insurance; however , this apparently was not recognized or appreciated by the hospital and he was documented as [facility] and declined rehabilitation; however, is now appreciated and that he has insurance and it is just today that his rehabilitation requested insurance has been turned in. He is ready to be transfe rred to rehab today clinically, but is waiting on insurance approval and rehab approval from a cardia c standpoint.
[2017-05-08] MEDS: Famotidine 20 MG TAB PO SCH (21:01)
[2017-05-09] MEDS: Meropenem 1 GM in Sterile Water 20 ML SLOW IVP SCH ×3 (06:16→21:56)
[2017-05-09] MEDS: HumaLOG 300 UNITS/3 ML VIAL SC PRN ×2 (06:27→11:56)
[2017-05-09] MEDS: Zinc Sulfate 220 MG CAP PO SCH (09:09)
[2017-05-09] MEDS: Gabapentin 300 MG CAP PO SCH ×2 (09:09→21:55)
[2017-05-09] MEDS: Polyethylene Glycol 3350 17 GM Packet PO SCH (09:09)
[2017-05-09] MEDS: Bacitracin Zinc 1 Packet TOP SCH ×2 (09:09→21:54)
[2017-05-09] MEDS: Enoxaparin Sodium 40 MG/0.4 ML SYRINGE SC SCH (09:09)
[2017-05-09] MEDS: Tamsulosin HCl 0.4 MG CAP PO SCH (09:09)
[2017-05-09] MEDS: HYDROcodone/Acetaminophen 10/325 mg Tablet PO PRN ×3 (09:10→16:44)
[2017-05-09] MEDS: Multivit, Therapeutic 1 TAB PO SCH (09:18)
[2017-05-09] MEDS: traMADol HCl 50 MG TAB PO PRN (10:19)
--- NOTE | 2017-05-09 12:50 | PDOC.PN ---
- Subjective Encounter Start Date: 05/09/17 Encounter Start Time: 10:30 Patient is seen today, waiting on Rehab approval for his insurance. He is still in severe pain. - Objective Resuscitation Status: Resuscitation Status FULL:Full Resuscitation MAR Reviewed: Yes Vital Signs & Weight: Vital Signs (12 hours) Temp Pulse Resp BP Pulse Ox 05/09/17 12:00 96.7 F L 89 18 145/78 H 96 05/09/17 07:50 97.1 F L 90 16 148/66 H 95 05/09/17 04:00 97 F L 91 16 141/76 H 96 Weight Admit Weight 239 lb 1.6 oz Weight 239 lb 1.6 oz I&O: 05/08/17 05/09/17 05/10/17 06:59 06:59 06:59 Intake Total 3825 3625 Output Total 1800 2875 Balance 2025 750 Result Diagrams: 05/08/17 05:35 05/08/17 05:35 Additional Labs: Accuchecks 05/09/17 05/09/17 05/08/17 11:48 06:04 20:51 POC Glucose 182 H 170 H 158 H 05/08/17 15:47 POC Glucose 162 H Radiology Reviewed by me: Yes Phys Exam - Physical Examination HEENT: PERRLA, moist MMs Neck: no nodes, no JVD Respiratory: no wheezing, no rales Cardiovascular: RRR, no significant murmur Gastrointestinal: soft, non-tender Musculoskeletal: edema present (Left BKA with Wound vac.) Neurological: non-focal, normal sensation Dx/Plan (1) Phimosis Code(s): N47.1 - PHIMOSIS Status: Chronic Comment: s/p circumcision, stbale no bleding. (2) Osteomyelitis of toe of left foot Code(s): M86.9 - OSTEOMYELITIS, UNSPECIFIED Status: Acute Comment: with infection progression to left thigh, s/p BKA and left thigh wound I&D, continued on Meropenam. will narow down once okyed with ID. (3) Diabetes type 2, controlled Code(s): E11.9 - TYPE 2 DIABETES MELLITUS WITHOUT COMPLICATIONS Status: Chronic Comment: well controlled, will continue with SSI. (4) Obesity (BMI 30.0-34.9) Code(s): E66.9 - OBESITY, UNSPECIFIED Status: Chronic - Plan cont current plan of care, plan discussed w/ family, suresh catheter, continue antibiotics, PT/OT, social studies teacher, respiratory therapy, incentive spirometry ( encouraged to increase IS), DVT proph w/SCDs * . - Discharge Day Encounter end time: 11:05 Review of Systems - Review of Systems Constitutional: weakness, malaise Eyes: negative: Pain, Vision Change, Conjunctivae Inflammation, Eyelid Inflammation, Redness, Other ENT: negative: Ear Pain, Ear Discharge, Nose Pain, Nose Discharge, Nose Congestion, Mouth Pain, Mouth Swelling, Throat Pain, Throat Swelling, Other Respiratory: negative: Cough, Dry, Shortness of Breath, Hemoptysis, SOB with Excertion, Pleuritic Pain, Sputum, Wheezing Cardiovascular: negative: chest pain, palpitations, orthopnea, paroxysmal nocturnal dyspnea, edema, light headedness, other Gastrointestinal: negative: Nausea, Vomiting, Abdominal Pain, Diarrhea, Constipation, Melena, Hematochezia, Other Musculoskeletal: Leg Pain, Foot Pain - Medications/Allergies Allergies/Adverse Reactions: Allergies Allergy/AdvReac Type Severity Reaction Status Date / Time No Known Allergies Allergy Verified 04/30/17 22:05 Medications: Current Medications Acetaminophen (Tylenol) 650 mg PO Q4H PRN PRN Reason: Headache/Fever or Pain Last Admin: 05/06/17 10:00 Dose: 650 mg Acetaminophen (Tylenol) 1,000 mg PO Q6H PRN PRN Reason: Moderate to Severe Pain (6-10) Hydrocodone Bitart/Acetaminophen ([place] 10/325) 1 tab PO Q4H PRN PRN Reason: Mild Pain (2-4) Last Admin: 05/09/17 09:10 Dose: 1 tab Hydrocodone Bitart/Acetaminophen ([place] 10/325) 2 tab PO Q4H PRN PRN Reason: Moderate to Severe Pain (5-10) Last Admin: 05/09/17 11:46 Dose: 2 tab Bacitracin Zinc (Bacitracin) [address] Stop: 05/12/17 09:01 Last Admin: 05/09/17 09:09 Dose: 1 pk Calcium Carbonate (Tums) 500 mg PO Q6H PRN PRN Reason: Heartburn or Indigestion Last Admin: 05/01/17 17:07 Dose: 500 mg Dextrose/Water (Dextrose 50%) 25 gm SLOW IVP PRN PRN PRN Reason: Hypoglycemia Diphenhydramine HCl (Benadryl) 25 mg IVP Q3H PRN PRN Reason: Itching Diphenhydramine HCl (Benadryl) 25 mg PO Q3H PRN PRN Reason: Itching Diphenhydramine HCl (Benadryl) 25 mg IM Q3H PRN PRN Reason: Itching Enoxaparin Sodium (Lovenox) 40 mg SC 0900 [facility] Last Admin: 05/09/17 09:09 Dose: 40 mg Famotidine (Pepcid) 20 mg PO QPM [facility] Last Admin: 05/08/17 21:01 Dose: 20 mg Gabapentin (Neurontin) 300 mg PO BID [facility] Last Admin: 05/09/17 09:09 Dose: 300 mg Glucagon (Glucagon) 1 mg IM PRN PRN PRN Reason: Hypoglycemia Guaifenesin (Mucinex) 600 mg PO Q12HR PRN PRN Reason: Congestion Guaifenesin/Dextromethorphan (Robitussin Dm) 15 ml PO Q4H PRN PRN Reason: Cough Last Admin: 05/01/17 00:35 Dose: 15 ml Heparin Sodium (Porcine) (Heparin Lock Flush 100 Units/Ml) 500 units IV BID [facility] Last Admin: 05/09/17 09:09 Dose: 500 unit Dextrose/Water (D5w) 1,000 mls @ 0 mls/hr IV .Q0M PRN; As Directed PRN Reason: Hypoglycemia Meropenem 1 gm/ Sterile Water 20 mls @ 240 mls/hr SLOW IVP 0500,1300,2100 [facility] Last Admin: 05/09/17 12:49 Dose: 20 mls Insulin Human Lispro (Humalog) 0 units SC .MODERATE SLIDING SC PRN PRN Reason: Moderate Correctional Scale Last Admin: 05/09/17 11:56 Dose: 2 unit Insulin Human Lispro (Humalog) 0 units SC .BEDTIME SLIDING SC PRN PRN Reason: Bedtime Correctional Scale Last Admin: 04/30/17 21:42 Dose: 2 unit Multivitamins (Theragran) 1 tab PO DAILY [facility] Last Admin: 05/09/17 09:18 Dose: 1 tab Naloxone HCl (Narcan) 0.2 mg IV Q5MIN PRN PRN Reason: Opiate Reversal Ondansetron HCl (Zofran) 4 mg IVP Q6H PRN PRN Reason: Nausea/Vomiting Last Admin: 05/06/17 06:09 Dose: 4 mg Phenol (Chloraseptic [place] 180 Ml Bot) 0 ml PO PRN PRN PRN Reason: SORE THROAT Last Admin: 05/03/17 04:50 Dose: 1 spr Polyethylene Glycol (Miralax) 17 gm PO DAILY [facility] Last Admin: 05/09/17 09:09 Dose: 17 gm Senna (Senokot) 2 tab PO HSPRN PRN PRN Reason: Constipation Last Admin: 05/07/17 08:23 Dose: 2 tab Sodium Chloride ([place] Nasal [place] 0.65%) 0 ml EA NARE TID PRN PRN Reason: Nasal Congestion Sodium Chloride (Flush - Normal Saline) 10 ml IVF Q12HR [facility] Last Admin: 05/09/17 09:09 Dose: 10 ml Sodium Chloride (Flush - Normal Saline) 10 ml IVF PRN PRN PRN Reason: Saline Flush Last Admin: 05/09/17 12:49 Dose: 10 ml Tamsulosin HCl (Flomax) 0.4 mg PO DAILY [facility] Last Admin: 05/09/17 09:09 Dose: 0.4 mg Tramadol HCl (Ultram) 50 mg PO Q6H PRN PRN Reason: Pain Tramadol HCl (Ultram) 100 mg PO Q6H PRN PRN Reason: Pain Last Admin: 05/09/17 10:19 Dose: 100 mg Zinc Sulfate (Zinc Sulfate) 220 mg PO DAILY [facility] Last Admin: 05/09/17 09:09 Dose: 220 mg Zolpidem Tartrate (Ambien) 5 mg PO HSPRN PRN PRN Reason: Insomnia
--- NOTE | 2017-05-09 14:06 | PRG ---
DATE OF SERVICE: 05/09/2017 Mr. Cooley is more alert and better mood today. He is eating without problems. No headaches, no res piratory symptoms or abdominal pain. He is voiding without difficulty using the urinal. OBJECTIVE: VITAL SIGNS: T-max 96.7 to 97.1, blood pressure 140/78, pulse 89, respirations 18, O2 sat 96%. EXTREMITIES: The wound with the area of amputation and approximation of the margins. There are some areas that is still with exposed subcutaneous facial tissue and muscle. HEENT: Awake, alert, oriented, a little bit of periorbital edema. LUNGS: With symmetric air entry. HEART: S1, S2, regular rate. ABDOMEN: Soft. He has a Rea catheter in the left side. LABORATORY: White cell count 13.6, hemoglobin 7.6, platelets 506. His creatinine was 0.73, sodium 1 36. Microbiology with a wide number of different organisms including gram negative rods, group B St aphylococcus aureus which is methicillin sensitive, Morganella morganii and anaerobes and Enterococcu s. ASSESSMENT AND DISCUSSION: Type 2 diabetes, necrotizing as left foot, status post [id number] amp utation left side with revision of the amputation site. Persistence of inflammatory process and cont inuation of antimicrobial therapy. The patient has had a Rea catheter placement and will continue antimicrobial therapy and transiti on him to [facility] when he is transferred to rehab potentially. Duration of therapy will be approximat zoila 10-14 days depending on the progress of the CBC, C-reactive protein. The end-point will be a nor malization of CBC and C-reactive protein. May need more than 2 weeks of therapy depending on the gigi nds of the above labs.
--- NOTE | 2017-05-09 14:07 | PRG ---
DATE OF SERVICE: 05/09/2017 SUBJECTIVE: The patient has done well over the past couple days and has been retracting the foreskin without difficulty. He does report there was mild bleeding from the penis, but that stopped shortly after he held pressure and he is otherwise having no problem retracting and placing bacitracin on th e penis itself. OBJECTIVE: He has remained afebrile, vitals stable. He has had excellent urine output. He is havin g no trouble with this and on exam, I observed him able to retract the suprapubic fat pad and expose the glans as well as the incision without difficulty. There was an abrasion on the glans which is li pamela where he had previously bled from, but otherwise nothing of concern. 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 He should continue this multiple jacque es a day over the next month and then he can continue exposing that on a daily basis for hygienic pur poses to prevent future entrapment. He understands this and is aware of not to use the penis until s eeing me in the office between 4 and 6 weeks postoperatively.
--- NOTE | 2017-05-09 14:16 | PRG ---
DATE OF SERVICE: 05/09/2017 Laureano Cooley is doing well today. He did not have any labs today. Wound VAC was changed his left B KA stump and Wound Care reports that it looks good. The patient can be discharged to the rehab at an y time. He will continue intravenous antibiotics for another [address] Dumont. He has a left IJ Rea catheter. Would recommend that I see him at rehab or in my office in 2-3 weeks to evalua te his wound and consider when it is appropriate to remove his sutures. He should try to work toward s keeping his left knee extended to prevent contracture. I will be off this weekend. Dr. Huang will be covering if needed. Please call if needed.
[2017-05-09] MEDS: Famotidine 20 MG TAB PO SCH (21:55)
[2017-05-10] MEDS: HYDROcodone/Acetaminophen 10/325 mg Tablet PO PRN ×4 (02:33→17:30)
[2017-05-10] MEDS: Meropenem 1 GM in Sterile Water 20 ML SLOW IVP SCH ×3 (05:14→21:01)
[2017-05-10] MEDS: Multivit, Therapeutic 1 TAB PO SCH (08:36)
[2017-05-10] MEDS: Tamsulosin HCl 0.4 MG CAP PO SCH (08:36)
[2017-05-10] MEDS: Gabapentin 300 MG CAP PO SCH ×2 (08:36→20:52)
[2017-05-10] MEDS: Zinc Sulfate 220 MG CAP PO SCH (08:37)
[2017-05-10] MEDS: Enoxaparin Sodium 40 MG/0.4 ML SYRINGE SC SCH (08:37)
[2017-05-10] MEDS: Bacitracin Zinc 1 Packet TOP SCH ×2 (08:37→20:52)
[2017-05-10] MEDS: Polyethylene Glycol 3350 17 GM Packet PO SCH (08:38)
[2017-05-10] MEDS: HumaLOG 300 UNITS/3 ML VIAL SC PRN ×2 (11:31→17:29)
--- NOTE | 2017-05-10 14:31 | PDOC.PN ---
- Subjective Encounter Start Date: 05/10/17 Encounter Start Time: 11:30 Patient is seen today, waiting on Rehab approval. Stbale, pain is well controlled. - Objective Resuscitation Status: Resuscitation Status FULL:Full Resuscitation MAR Reviewed: Yes Vital Signs & Weight: Vital Signs (12 hours) Temp Pulse Resp BP Pulse Ox 05/10/17 11:40 97.5 F L 93 18 126/69 92 L 05/10/17 08:30 98.0 F 103 H 18 05/10/17 07:25 98.0 F 103 H 18 116/74 96 05/10/17 05:17 98.9 F 97 18 132/62 91 L Weight Admit Weight 239 lb 1.6 oz Weight 239 lb 1.6 oz I&O: 05/09/17 05/10/17 05/11/17 06:59 06:59 06:59 Intake Total 3625 2295 Output Total 2875 2275 Balance 750 20 Result Diagrams: 05/08/17 05:35 05/08/17 05:35 Additional Labs: Accuchecks 05/10/17 05/10/17 05/09/17 11:18 05:23 21:08 POC Glucose 169 H 171 H 178 H 05/09/17 16:03 POC Glucose 151 H Phys Exam - Physical Examination HEENT: PERRLA, moist MMs Neck: no nodes, no JVD Respiratory: no wheezing, no rales Cardiovascular: RRR, no significant murmur Gastrointestinal: soft, non-tender Musculoskeletal: no edema, pulses present Dx/Plan (1) Phimosis Code(s): N47.1 - PHIMOSIS Status: Chronic Comment: s/p circumcision, stbale no bleding. (2) Osteomyelitis of toe of left foot Code(s): M86.9 - OSTEOMYELITIS, UNSPECIFIED Status: Acute Comment: with infection progression to left thigh, s/p BKA and left thigh wound I&D, continued on Meropenam. will narow down once okyed with ID. (3) Diabetes type 2, controlled Code(s): E11.9 - TYPE 2 DIABETES MELLITUS WITHOUT COMPLICATIONS Status: Chronic Comment: well controlled, will continue with SSI. 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 - Discharge Day Encounter end time: 12:00 Review of Systems - Review of Systems Constitutional: negative: fever, chills, sweats, weakness, malaise, other Eyes: negative: Pain, Vision Change, Conjunctivae Inflammation, Eyelid Inflammation, Redness, Other Respiratory: negative: Cough, Dry, Shortness of Breath, Hemoptysis, SOB with Excertion, Pleuritic Pain, Sputum, Wheezing Cardiovascular: negative: chest pain, palpitations, orthopnea, paroxysmal nocturnal dyspnea, edema, light headedness, other Gastrointestinal: negative: Nausea, Vomiting, Abdominal Pain, Diarrhea, Constipation, Melena, Hematochezia, Other Musculoskeletal: Leg Pain (Left BKA, phantom limb pain.). negative: Neck Pain, Shoulder Pain, Arm Pain, Back Pain, Hand Pain, Foot Pain, Other Skin: negative: Rash, Lesions, Russell, Bruising, Other - Medications/Allergies Allergies/Adverse Reactions: Allergies Allergy/AdvReac Type Severity Reaction Status Date / Time No Known Allergies Allergy Verified 04/30/17 22:05 Medications: Current Medications Acetaminophen (Tylenol) 650 mg PO Q4H PRN PRN Reason: Headache/Fever or Pain Last Admin: 05/06/17 10:00 Dose: 650 mg Acetaminophen (Tylenol) 1,000 mg PO Q6H PRN PRN Reason: Moderate to Severe Pain (6-10) Hydrocodone Bitart/Acetaminophen ([place] 10/325) 1 tab PO Q4H PRN PRN Reason: Mild Pain (2-4) Last Admin: 05/10/17 12:55 Dose: 1 tab Hydrocodone Bitart/Acetaminophen ([place] 10/325) 2 tab PO Q4H PRN PRN Reason: Moderate to Severe Pain (5-10) Last Admin: 05/09/17 11:46 Dose: 2 tab Bacitracin Zinc (Bacitracin) [address] Stop: 05/12/17 09:01 Last Admin: 05/10/17 08:37 Dose: 1 pk Calcium Carbonate (Tums) 500 mg PO Q6H PRN PRN Reason: Heartburn or Indigestion Last Admin: 05/01/17 17:07 Dose: 500 mg Dextrose/Water (Dextrose 50%) 25 gm SLOW IVP PRN PRN PRN Reason: Hypoglycemia Diphenhydramine HCl (Benadryl) 25 mg IVP Q3H PRN PRN Reason: Itching Diphenhydramine HCl (Benadryl) 25 mg PO Q3H PRN PRN Reason: Itching Diphenhydramine HCl (Benadryl) 25 mg IM Q3H PRN PRN Reason: Itching Enoxaparin Sodium (Lovenox) 40 mg SC 0900 [facility] Last Admin: 05/10/17 08:37 Dose: 40 mg Famotidine (Pepcid) 20 mg PO QPM [facility] Last Admin: 05/09/17 21:55 Dose: 20 mg Gabapentin (Neurontin) 300 mg PO BID [facility] Last Admin: 05/10/17 08:36 Dose: 300 mg Glucagon (Glucagon) 1 mg IM PRN PRN PRN Reason: Hypoglycemia Guaifenesin (Mucinex) 600 mg PO Q12HR PRN PRN Reason: Congestion Guaifenesin/Dextromethorphan (Robitussin Dm) 15 ml PO Q4H PRN PRN Reason: Cough Last Admin: 05/01/17 00:35 Dose: 15 ml Heparin Sodium (Porcine) (Heparin Lock Flush 100 Units/Ml) 500 units IV BID [facility] Last Admin: 05/10/17 08:37 Dose: 500 unit Dextrose/Water (D5w) 1,000 mls @ 0 mls/hr IV .Q0M PRN; As Directed PRN Reason: Hypoglycemia Meropenem 1 gm/ Sterile Water 20 mls @ 240 mls/hr SLOW IVP 0500,1300,2100 [facility] Last Admin: 05/10/17 13:38 Dose: 20 mls Insulin Human Lispro (Humalog) 0 units SC .MODERATE SLIDING SC PRN PRN Reason: Moderate Correctional Scale Last Admin: 05/10/17 11:31 Dose: 2 unit Insulin Human Lispro (Humalog) 0 units SC .BEDTIME SLIDING SC PRN PRN Reason: Bedtime Correctional Scale Last Admin: 04/30/17 21:42 Dose: 2 unit Multivitamins (Theragran) 1 tab PO DAILY [facility] Last Admin: 05/10/17 08:36 Dose: 1 tab Naloxone HCl (Narcan) 0.2 mg IV Q5MIN PRN PRN Reason: Opiate Reversal Ondansetron HCl (Zofran) 4 mg IVP Q6H PRN PRN Reason: Nausea/Vomiting Last Admin: 05/06/17 06:09 Dose: 4 mg Phenol (Chloraseptic [place] 180 Ml Bot) 0 ml PO PRN PRN PRN Reason: SORE THROAT Last Admin: 05/03/17 04:50 Dose: 1 spr Polyethylene Glycol (Miralax) 17 gm PO DAILY [facility] Last Admin: 05/10/17 08:38 Dose: Not Given Senna (Senokot) 2 tab PO HSPRN PRN PRN Reason: Constipation Last Admin: 05/07/17 08:23 Dose: 2 tab Sodium Chloride ([place] Nasal [place] 0.65%) 0 ml EA NARE TID PRN PRN Reason: Nasal Congestion Sodium Chloride (Flush - Normal Saline) 10 ml IVF Q12HR [facility] Last Admin: 05/10/17 08:37 Dose: 10 ml Sodium Chloride (Flush - Normal Saline) 10 ml IVF PRN PRN PRN Reason: Saline Flush Last Admin: 05/09/17 12:49 Dose: 10 ml Tamsulosin HCl (Flomax) 0.4 mg PO DAILY [facility] Last Admin: 05/10/17 08:36 Dose: 0.4 mg Tramadol HCl (Ultram) 50 mg PO Q6H PRN PRN Reason: Pain Tramadol HCl (Ultram) 100 mg PO Q6H PRN PRN Reason: Pain Last Admin: 05/09/17 10:19 Dose: 100 mg Zinc Sulfate (Zinc Sulfate) 220 mg PO DAILY [facility] Last Admin: 05/10/17 08:37 Dose: 220 mg Zolpidem Tartrate (Ambien) 5 mg PO HSPRN PRN PRN Reason: Insomnia
[2017-05-10] MEDS: Famotidine 20 MG TAB PO SCH (20:52)
[2017-05-11] MEDS: HYDROcodone/Acetaminophen 10/325 mg Tablet PO PRN ×5 (02:12→23:03)
[2017-05-11] MEDS: Meropenem 1 GM in Sterile Water 20 ML SLOW IVP SCH ×3 (04:54→23:04)
[2017-05-11] MEDS: Bacitracin Zinc 1 Packet TOP SCH ×2 (10:14→23:02)
[2017-05-11] MEDS: Enoxaparin Sodium 40 MG/0.4 ML SYRINGE SC SCH (10:14)
[2017-05-11] MEDS: Multivit, Therapeutic 1 TAB PO SCH (10:14)
[2017-05-11] MEDS: Tamsulosin HCl 0.4 MG CAP PO SCH (10:14)
[2017-05-11] MEDS: Zinc Sulfate 220 MG CAP PO SCH (10:14)
[2017-05-11] MEDS: Polyethylene Glycol 3350 17 GM Packet PO SCH (10:15)
[2017-05-11] MEDS: Gabapentin 300 MG CAP PO SCH ×2 (10:15→23:04)
--- NOTE | 2017-05-11 14:59 | PDOC.PN ---
- Subjective Encounter Start Date: 05/11/17 Encounter Start Time: 13:00 Patient is seeen today, alert and oriented. pain is well controleld, Waiting on insurance approval for inpATIENT REHAB - Objective Resuscitation Status: Resuscitation Status FULL:Full Resuscitation MAR Reviewed: Yes Vital Signs & Weight: Vital Signs (12 hours) Temp Pulse Resp BP Pulse Ox 05/11/17 12:06 97.6 F 86 18 132/63 97 05/11/17 08:58 99.1 F 90 16 126/59 L 93 L 05/11/17 08:00 97.6 F 86 18 05/11/17 04:00 97 F L 102 H 16 140/75 92 L Weight Admit Weight 239 lb 1.6 oz Weight 239 lb 1.6 oz I&O: 05/10/17 05/11/17 05/12/17 06:59 06:59 06:59 Intake Total 2295 2170 Output Total 2275 2750 Balance 20 -580 Result Diagrams: 05/08/17 05:35 05/08/17 05:35 Additional Labs: Accuchecks 05/11/17 05/11/17 05/10/17 10:35 05:17 20:16 POC Glucose 166 H 134 H 174 H 05/10/17 16:46 POC Glucose 190 H Phys Exam - Physical Examination HEENT: PERRLA, moist MMs Neck: no nodes, no JVD Respiratory: no wheezing, no rales Cardiovascular: RRR, no significant murmur Musculoskeletal: no edema, pulses present (right lower Extemity, left BKA) Neurological: non-focal, normal sensation Dx/Plan (1) Phimosis Code(s): N47.1 - PHIMOSIS Status: Chronic Comment: s/p circumcision, stbale no bleding. (2) Osteomyelitis of toe of left foot Code(s): M86.9 - OSTEOMYELITIS, UNSPECIFIED Status: Acute Comment: with infection progression to left thigh, s/p BKA and left thigh wound I&D, continued on Meropenam. plan to continue on Invanze after dischagre for 2 more weeks per ID. (3) Diabetes type 2, controlled Code(s): E11.9 - TYPE 2 DIABETES MELLITUS WITHOUT COMPLICATIONS Status: Chronic Comment: well controlled, will continue with SSI. (4) Obesity (BMI 30.0-34.9) Code(s): E66.9 - OBESITY, UNSPECIFIED Status: Chronic - Plan cont current plan of care, continue antibiotics, PT/OT, social worker psychiatric, incentive spirometry, DVT proph w/lovenox * . - Discharge Day Encounter end time: 13:35 Review of Systems - Review of Systems Constitutional: negative: fever, chills, sweats, weakness, malaise, other Eyes: negative: Pain, Vision Change, Conjunctivae Inflammation, Eyelid Inflammation, Redness, Other ENT: negative: Ear Pain, Ear Discharge, Nose Pain, Nose Discharge, Nose Congestion, Mouth Pain, Mouth Swelling, Throat Pain, Throat Swelling, Other Respiratory: negative: Cough, Dry, Shortness of Breath, Hemoptysis, SOB with Excertion, Pleuritic Pain, Sputum, Wheezing Cardiovascular: negative: chest pain, palpitations, orthopnea, paroxysmal nocturnal dyspnea, edema, light headedness, other Musculoskeletal: Leg Pain. negative: Neck Pain, Shoulder Pain, Arm Pain, Back Pain, Hand Pain, Foot Pain, Other - Medications/Allergies Allergies/Adverse Reactions: Allergies Allergy/AdvReac Type Severity Reaction Status Date / Time No Known Allergies Allergy Verified 04/30/17 22:05 Medications: Current Medications Acetaminophen (Tylenol) 650 mg PO Q4H PRN PRN Reason: Headache/Fever or Pain Last Admin: 05/06/17 10:00 Dose: 650 mg Acetaminophen (Tylenol) 1,000 mg PO Q6H PRN PRN Reason: Moderate to Severe Pain (6-10) Hydrocodone Bitart/Acetaminophen ([place] 10/325) 1 tab PO Q4H PRN PRN Reason: Mild Pain (2-4) Last Admin: 05/11/17 06:27 Dose: 1 tab Hydrocodone Bitart/Acetaminophen ([place] 10/325) 2 tab PO Q4H PRN PRN Reason: Moderate to Severe Pain (5-10) Last Admin: 05/11/17 10:26 Dose: 2 tab Bacitracin Zinc (Bacitracin) [address] Stop: 05/12/17 09:01 Last Admin: 05/11/17 10:14 Dose: 1 pk Calcium Carbonate (Tums) 500 mg PO Q6H PRN PRN Reason: Heartburn or Indigestion Last Admin: 05/01/17 17:07 Dose: 500 mg Dextrose/Water (Dextrose 50%) 25 gm SLOW IVP PRN PRN PRN Reason: Hypoglycemia Diphenhydramine HCl (Benadryl) 25 mg IVP Q3H PRN PRN Reason: Itching Diphenhydramine HCl (Benadryl) 25 mg PO Q3H PRN PRN Reason: Itching Diphenhydramine HCl (Benadryl) 25 mg IM Q3H PRN PRN Reason: Itching Enoxaparin Sodium (Lovenox) 40 mg SC 0900 [facility] Last Admin: 05/11/17 10:14 Dose: 40 mg Famotidine (Pepcid) 20 mg PO QPM [facility] Last Admin: 05/10/17 20:52 Dose: 20 mg Gabapentin (Neurontin) 300 mg PO BID [facility] Last Admin: 05/11/17 10:15 Dose: 300 mg Glucagon (Glucagon) 1 mg IM PRN PRN PRN Reason: Hypoglycemia Guaifenesin (Mucinex) 600 mg PO Q12HR PRN PRN Reason: Congestion Guaifenesin/Dextromethorphan (Robitussin Dm) 15 ml PO Q4H PRN PRN Reason: Cough Last Admin: 05/01/17 00:35 Dose: 15 ml Heparin Sodium (Porcine) (Heparin Lock Flush 100 Units/Ml) 500 units IV BID [facility] Last Admin: 05/11/17 14:01 Dose: 1 applic Dextrose/Water (D5w) 1,000 mls @ 0 mls/hr IV .Q0M PRN; As Directed PRN Reason: Hypoglycemia Meropenem 1 gm/ Sterile Water 20 mls @ 240 mls/hr SLOW IVP 0500,1300,2100 [facility] Last Admin: 05/11/17 13:53 Dose: 20 mls Insulin Human Lispro (Humalog) 0 units SC .MODERATE SLIDING SC PRN PRN Reason: Moderate Correctional Scale Last Admin: 05/10/17 17:29 Dose: 2 unit Insulin Human Lispro (Humalog) 0 units SC .BEDTIME SLIDING SC PRN PRN Reason: Bedtime Correctional Scale Last Admin: 04/30/17 21:42 Dose: 2 unit Multivitamins (Theragran) 1 tab PO DAILY [facility] Last Admin: 05/11/17 10:14 Dose: 1 tab Naloxone HCl (Narcan) 0.2 mg IV Q5MIN PRN PRN Reason: Opiate Reversal Ondansetron HCl (Zofran) 4 mg IVP Q6H PRN PRN Reason: Nausea/Vomiting Last Admin: 05/06/17 06:09 Dose: 4 mg Phenol (Chloraseptic [place] 180 Ml Bot) 0 ml PO PRN PRN PRN Reason: SORE THROAT Last Admin: 05/03/17 04:50 Dose: 1 spr Polyethylene Glycol (Miralax) 17 gm PO DAILY [facility] Last Admin: 05/11/17 10:15 Dose: 17 gm Senna (Senokot) 2 tab PO HSPRN PRN PRN Reason: Constipation Last Admin: 05/07/17 08:23 Dose: 2 tab Sodium Chloride ([place] Nasal [place] 0.65%) 0 ml EA NARE TID PRN PRN Reason: Nasal Congestion Sodium Chloride (Flush - Normal Saline) 10 ml IVF Q12HR [facility] Last Admin: 05/11/17 14:03 Dose: 10 ml Sodium Chloride (Flush - Normal Saline) 10 ml IVF PRN PRN PRN Reason: Saline Flush Last Admin: 05/09/17 12:49 Dose: 10 ml Tamsulosin HCl (Flomax) 0.4 mg PO DAILY [facility] Last Admin: 05/11/17 10:14 Dose: 0.4 mg Tramadol HCl (Ultram) 50 mg PO Q6H PRN PRN Reason: Pain Tramadol HCl (Ultram) 100 mg PO Q6H PRN PRN Reason: Pain Last Admin: 05/09/17 10:19 Dose: 100 mg Zinc Sulfate (Zinc Sulfate) 220 mg PO DAILY [facility] Last Admin: 05/11/17 10:14 Dose: 220 mg Zolpidem Tartrate (Ambien) 5 mg PO HSPRN PRN PRN Reason: Insomnia
[2017-05-11] MEDS: Famotidine 20 MG TAB PO SCH (23:04)
[2017-05-12] MEDS: HYDROcodone/Acetaminophen 10/325 mg Tablet PO PRN ×5 (02:39→23:42)
[2017-05-12] MEDS: Meropenem 1 GM in Sterile Water 20 ML SLOW IVP SCH ×3 (06:15→21:00)
[2017-05-12] MEDS: Polyethylene Glycol 3350 17 GM Packet PO SCH ×2 (08:15→08:49)
[2017-05-12] MEDS: Bacitracin Zinc 1 Packet TOP SCH (08:16)
[2017-05-12] MEDS: Enoxaparin Sodium 40 MG/0.4 ML SYRINGE SC SCH (08:17)
[2017-05-12] MEDS: Gabapentin 300 MG CAP PO SCH ×2 (08:18→21:45)
[2017-05-12] MEDS: Multivit, Therapeutic 1 TAB PO SCH (08:18)
[2017-05-12] MEDS: Tamsulosin HCl 0.4 MG CAP PO SCH (08:18)
[2017-05-12] MEDS: Zinc Sulfate 220 MG CAP PO SCH (08:18)
--- NOTE | 2017-05-12 10:49 | PRG ---
DATE OF SERVICE: 05/12/2017 Laureano Cooley's left [id number] amputation stump looks very good. His wound VAC was removed toda y. Wound care will arrive to place a new wound VAC. He will be transferred to the rehab unit [facility] today after insurance approval. The wound looks very good. He will continue on intravenous anti biotics via his left IJ Rea catheter. The patient's acute kidney injury has resolved with hydrat ion. The patient's left knee is in full extension at this time. He has good mobility. His pain con trol is much better. I have ordered a left leg stump ferris wheel attendant which will help in preparing this for a prosthesis in the future. The patient will be transferred to rehab and I would like to see his wou nd in about 2-3 weeks to assess readiness for suture removal.
[2017-05-12] MEDS: traMADol HCl 50 MG TAB PO PRN (10:54)
[2017-05-12] MEDS: HumaLOG 300 UNITS/3 ML VIAL SC PRN (13:51)
--- NOTE | 2017-05-12 20:30 | PDOC.PN ---
- Subjective Encounter Start Date: 05/12/17 Encounter Start Time: 15:00 Subjective: nsg notes rev, tyshawn ovn, no new c/o -: is currently shaving and feeling "better" about his recent amp - Objective Resuscitation Status: Resuscitation Status FULL:Full Resuscitation Vital Signs & Weight: Vital Signs (12 hours) Temp Pulse Resp BP Pulse Ox 05/12/17 16:00 97.1 F L 105 H 20 117/64 97 05/12/17 12:00 97.1 F L 88 14 141/69 H 91 L Weight Admit Weight 239 lb 1.6 oz Weight 239 lb 1.6 oz I&O: 05/11/17 05/12/17 05/13/17 06:59 06:59 06:59 Intake Total 2170 900 1960 Output Total 2750 1100 3050 Balance -580 -200 -1090 Result Diagrams: 05/08/17 05:35 05/08/17 05:35 Additional Labs: Accuchecks 05/12/17 05/12/17 05/12/17 16:49 11:52 06:04 POC Glucose 152 H 161 H 126 H 05/11/17 20:06 POC Glucose 169 H Phys Exam - Physical Examination Constitutional: NAD HEENT: PERRLA, moist MMs, sclera anicteric Respiratory: no wheezing, no rales, no rhonchi Cardiovascular: RRR, no significant murmur, no rub Gastrointestinal: soft, non-tender, no distention, positive bowel sounds Psychiatric: normal affect, A&O x 3 Dx/Plan (1) Osteomyelitis of toe of left foot Code(s): M86.9 - OSTEOMYELITIS, UNSPECIFIED Status: Acute Comment: with infection progression to left thigh, s/p BKA and left thigh wound I&D, continued on Meropenam. plan to continue on Invanze after dischagre for 2 more weeks per ID. (2) Diabetes type 2, controlled Code(s): E11.9 - TYPE 2 DIABETES MELLITUS WITHOUT COMPLICATIONS Status: Chronic Comment: well controlled, will continue with SSI. (3) Obesity (BMI 30.0-34.9) Code(s): E66.9 - OBESITY, UNSPECIFIED Status: Chronic - Plan cont current plan of care, PT/OT, social economist * awaiting inpatient rehab Review of Systems - Medications/Allergies Allergies/Adverse Reactions: Allergies Allergy/AdvReac Type Severity Reaction Status Date / Time No Known Allergies Allergy Verified 04/30/17 22:05 Medications: Current Medications Acetaminophen (Tylenol) 650 mg PO Q4H PRN PRN Reason: Headache/Fever or Pain Last Admin: 05/06/17 10:00 Dose: 650 mg Acetaminophen (Tylenol) 1,000 mg PO Q6H PRN PRN Reason: Moderate to Severe Pain (6-10) Hydrocodone Bitart/Acetaminophen ([place] 10/325) 1 tab PO Q4H PRN PRN Reason: Mild Pain (2-4) Last Admin: 05/12/17 19:41 Dose: 1 tab Hydrocodone Bitart/Acetaminophen ([place] 10/325) 2 tab PO Q4H PRN PRN Reason: Moderate to Severe Pain (5-10) Last Admin: 05/12/17 02:39 Dose: 2 tab Calcium Carbonate (Tums) 500 mg PO Q6H PRN PRN Reason: Heartburn or Indigestion Last Admin: 05/01/17 17:07 Dose: 500 mg Dextrose/Water (Dextrose 50%) 25 gm SLOW IVP PRN PRN PRN Reason: Hypoglycemia Diphenhydramine HCl (Benadryl) 25 mg IVP Q3H PRN PRN Reason: Itching Diphenhydramine HCl (Benadryl) 25 mg PO Q3H PRN PRN Reason: Itching Diphenhydramine HCl (Benadryl) 25 mg IM Q3H PRN PRN Reason: Itching Enoxaparin Sodium (Lovenox) 40 mg SC 0900 [facility] Last Admin: 05/12/17 08:17 Dose: 40 mg Famotidine (Pepcid) 20 mg PO QPM [facility] Last Admin: 05/11/17 23:04 Dose: 20 mg Gabapentin (Neurontin) 300 mg PO BID [facility] Last Admin: 05/12/17 08:18 Dose: 300 mg Glucagon (Glucagon) 1 mg IM PRN PRN PRN Reason: Hypoglycemia Guaifenesin (Mucinex) 600 mg PO Q12HR PRN PRN Reason: Congestion Guaifenesin/Dextromethorphan (Robitussin Dm) 15 ml PO Q4H PRN PRN Reason: Cough Last Admin: 05/01/17 00:35 Dose: 15 ml Heparin Sodium (Porcine) (Heparin Lock Flush 100 Units/Ml) 500 units IV BID [facility] Last Admin: 05/12/17 08:17 Dose: 500 unit Dextrose/Water (D5w) 1,000 mls @ 0 mls/hr IV .Q0M PRN; As Directed PRN Reason: Hypoglycemia Meropenem 1 gm/ Sterile Water 20 mls @ 240 mls/hr SLOW IVP 0500,1300,2100 [facility] Last Admin: 05/12/17 13:50 Dose: 20 mls Insulin Human Lispro (Humalog) 0 units SC .MODERATE SLIDING SC PRN PRN Reason: Moderate Correctional Scale Last Admin: 05/12/17 13:51 Dose: 2 unit Insulin Human Lispro (Humalog) 0 units SC .BEDTIME SLIDING SC PRN PRN Reason: Bedtime Correctional Scale Last Admin: 04/30/17 21:42 Dose: 2 unit Multivitamins (Theragran) 1 tab PO DAILY [facility] Last Admin: 05/12/17 08:18 Dose: 1 tab Ondansetron HCl (Zofran) 4 mg IVP Q6H PRN PRN Reason: Nausea/Vomiting Last Admin: 05/06/17 06:09 Dose: 4 mg Phenol (Chloraseptic [place] 180 Ml Bot) 0 ml PO PRN PRN PRN Reason: SORE THROAT Last Admin: 05/03/17 04:50 Dose: 1 spr Polyethylene Glycol (Miralax) 17 gm PO DAILY [facility] Last Admin: 05/12/17 08:49 Dose: Not Given Senna (Senokot) 2 tab PO HSPRN PRN PRN Reason: Constipation Last Admin: 05/07/17 08:23 Dose: 2 tab Sodium Chloride ([place] Nasal [place] 0.65%) 0 ml EA NARE TID PRN PRN Reason: Nasal Congestion Sodium Chloride (Flush - Normal Saline) 10 ml IVF Q12HR [facility] Last Admin: 05/12/17 08:19 Dose: 10 ml Sodium Chloride (Flush - Normal Saline) 10 ml IVF PRN PRN PRN Reason: Saline Flush Last Admin: 05/09/17 12:49 Dose: 10 ml Tamsulosin HCl (Flomax) 0.4 mg PO DAILY [facility] Last Admin: 05/12/17 08:18 Dose: 0.4 mg Tramadol HCl (Ultram) 50 mg PO Q6H PRN PRN Reason: Pain Tramadol HCl (Ultram) 100 mg PO Q6H PRN PRN Reason: Pain Last Admin: 05/12/17 10:54 Dose: 100 mg Zinc Sulfate (Zinc Sulfate) [address] Last Admin: 05/12/17 08:18 Dose: 220 mg Zolpidem Tartrate (Ambien) 5 mg PO HSPRN PRN PRN Reason: Insomnia
[2017-05-12] MEDS: Famotidine 20 MG TAB PO SCH (21:45)
[2017-05-13] MEDS: Meropenem 1 GM in Sterile Water 20 ML SLOW IVP SCH ×2 (05:28→12:06)
[2017-05-13] MEDS: HYDROcodone/Acetaminophen 10/325 mg Tablet PO PRN ×3 (05:28→16:21)
[2017-05-13] MEDS ORDERED: Senokot 8.6 MG TAB PO PRN (06:23)
[2017-05-13] MEDS: Gabapentin 300 MG CAP PO SCH (09:06)
[2017-05-13] MEDS: Zinc Sulfate 220 MG CAP PO SCH (09:06)
[2017-05-13] MEDS: Multivit, Therapeutic 1 TAB PO SCH (09:06)
[2017-05-13] MEDS: Tamsulosin HCl 0.4 MG CAP PO SCH (09:06)
[2017-05-13] MEDS: Enoxaparin Sodium 40 MG/0.4 ML SYRINGE SC SCH (09:07)
[2017-05-13] MEDS: Polyethylene Glycol 3350 17 GM Packet PO SCH (09:08)
[2017-05-13] MEDS: HumaLOG 300 UNITS/3 ML VIAL SC PRN (12:06)
[2017-05-13 17:42] VITALS: BP 139/64; TEMP 97.1
[2017-05-13] MEDS: traMADol HCl 50 MG TAB PO PRN (18:19)
--- NOTE | 2017-05-14 11:43 | DIS ---
DATE OF ADMISSION: 04/30/2017 DATE OF DISCHARGE: 05/13/2017 DISCHARGE DIAGNOSES: 1. Left foot cellulitis. 2. Left foot osteomyelitis. 3. Sepsis, resolved. BRIEF SUMMARY OF HOSPITAL COURSE: This is a 47-year-old male with a known history of type 2 diabetes who initially presented with a left foot ulcer and cellulitis. Please see the original history and physical for full details surrounding admission. At the time of admission, the patient met criteria for sepsis and was started on empiric antibiotics. There was initial concern for necrotizing fasciitis. General Surgery was consulted. The patient was found to have osteomyelitis and underwent a left foot amputation. Infectious Diseases was also consulted. At the time of discharge, the patient will continue antibiotic regimen as underlying Infectious Disease guidance. Patient required revision and wound VAC placement upon his amputated stump; however, the wound VAC has been removed at the time of discharge to rehabilitative facility. The remainder of the patient's other chronic medical issues were stable during this hospitalization. CONSULTATIONS: 1. Infectious Disease. 2. General Surgery. 3. Physical therapy. MEDICATION RECONCILIATION: At the time of discharge, the patient is discharged on his home regimen with the addition of tramadol p.r.n. for pain and meropenem for antibiotic coverage for approximately 2 weeks post-discharge with further duration to be determined by Infectious Diseases. DISCHARGE CONDITION: At the time of discharge, the patient is hemodynamically stable. He is very participatory with physical therapy and tolerating his baseline diet. I have seen and examined the patient on the day of discharge. DISCHARGE INSTRUCTIONS: The patient is currently being discharged to inpatient rehabilitative facility. He will need continued outpatient followup with his primary care provider and Infectious Diseases. Thank you for asking me to care for the patient. Questions or concerns, please contact me at [facility]. Greater than 30 minutes spent coordinating discharge for the patient. CRISTINE
== END 2017-05-13 20:47 | DRG 853 ==
LOC: ERS 10:00 → SURG A 13:02 → SJJU 14:28
PROVIDERS: ADMIT Internal Medicine; ATTEND Internal Medicine
PROC: 0Y6J0Z3 Detachment at Left Lower Leg, Low, Open Approach (ICD-10-PCS; 2017-04-30)
PROC: 0Y6J0Z3 Detachment at Left Lower Leg, Low, Open Approach (ICD-10-PCS; principal; 2017-05-02)
PROC: 0KBT0ZZ Excision of Left Lower Leg Muscle, Open Approach (ICD-10-PCS; 2017-05-02)
PROC: 0Y6J0Z1 Detachment at Left Lower Leg, High, Open Approach (ICD-10-PCS; 2017-05-05)
PROC: 0VTTXZZ Resection of Prepuce, External Approach (ICD-10-PCS; 2017-05-05)
PROC: 02HV33Z Insertion of Infusion Device into Superior Vena Cava, Percutaneous Approach (ICD-10-PCS; 2017-05-07)
PROC: 0HQLXZZ Repair Left Lower Leg Skin, External Approach (ICD-10-PCS; 2017-05-07)
DX: A41.9 Sepsis, unspecified organism (principal); M72.6 Necrotizing fasciitis; N17.9 Acute kidney failure, unspecified; A48.0 Gas gangrene; E11.40 Type 2 diabetes mellitus with diabetic neuropathy, unspecified; M86.172 Other acute osteomyelitis, left ankle and foot; D62 Acute posthemorrhagic anemia; E11.52 Type 2 diabetes mellitus with diabetic peripheral angiopathy with gangrene; L03.116 Cellulitis of left lower limb; E11.69 Type 2 diabetes mellitus with other specified complication; E11.621 Type 2 diabetes mellitus with foot ulcer; Z89.411 Acquired absence of right great toe; L97.529 Non-pressure chronic ulcer of other part of left foot with unspecified severity; Z79.84 Long term (current) use of oral hypoglycemic drugs; N47.1 Phimosis; E87.6 Hypokalemia; E66.9 Obesity, unspecified; Z68.30 Body mass index [BMI] 30.0-30.9, adult
CPT/HCPCS: 36415; 36416; 36430; 71045; 80048; 80053; 82010; 82805; 83605; 83735; 85025; 86850; 86900; 86901; 87040; 87070; 87076; 87077; 87186; 87205; 88304; 88307; 93005; 96361; 96365; 96368; 96375; A4216; C1751; G8978-GP-CM; G8979-GP-CK; G8987-GO-CJ; G8988-GO-CI; J0696; J1170; J1642; J1650; J1815; J1885; J2001; J2185; J2405; J2543; J2704; J2997; J3010; J3370; J3480; J7050; J7120; L8440; P9016; S0020

== ENCOUNTER 2017-06-02 14:46 | Outpatient (CLI) | payer SELFPAY ==
[~2017-06-02 14:46] MED LIST: Sodium Chloride 0.9% 15 ML NEB ONE
== END 2017-06-02 14:47 | disposition home or self-care (01) ==
LOC: WCC 14:46
PROVIDERS: ATTEND Family Medicine
DX: T81.89XD Other complications of procedures, not elsewhere classified, subsequent encounter (principal)
CPT/HCPCS: 97606; A4218

== ENCOUNTER 2017-06-05 14:08 | Outpatient (CLI) | payer SELFPAY ==
[2017-06-09] MEDS ORDERED: Sodium Chloride 0.9% 15 ML NEB ONE (16:48)
== END 2017-06-05 14:09 | disposition home or self-care (01) ==
LOC: WCC 14:08
PROVIDERS: ATTEND Family Medicine
DX: T87.9 Unspecified complications of amputation stump (principal); Z89.512 Acquired absence of left leg below knee
CPT/HCPCS: 97606; A4218

== ENCOUNTER 2017-06-09 10:34 | Outpatient (CLI) | payer SELFPAY | END 2017-06-09 10:35 | disposition home or self-care (01) | LOC: WCC 10:34 | PROVIDERS: ATTEND Family Medicine | DX: T87.9 Unspecified complications of amputation stump (principal); Z89.512 Acquired absence of left leg below knee | CPT/HCPCS: 97605; A4218 ==

== ENCOUNTER 2017-06-12 11:07 | Outpatient (CLI) | payer SELFPAY ==
[2017-06-12] MEDS ORDERED: Sodium Chloride 0.9% 15 ML NEB ONE (16:16)
== END 2017-06-12 11:08 | disposition home or self-care (01) ==
LOC: WCC 11:07
PROVIDERS: ATTEND Family Medicine
DX: T87.9 Unspecified complications of amputation stump (principal); Z89.512 Acquired absence of left leg below knee
CPT/HCPCS: 97605; A4218

== ENCOUNTER 2017-06-16 13:41 | Outpatient (CLI) | payer SELFPAY ==
--- NOTE | 2017-06-16 16:36 | HP ---
DATE OF SERVICE: 06/16/2017 HISTORY OF PRESENT ILLNESS: Mr. 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 For the wound, the patient is currently receiving negative pressure therapy. Upon the patient's discharge from [facility], the patient was referred to the Wound Center for assistance with dressing changes of the wound VAC. 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 On 05/02/2017 the patient was taken to the operating room for intraoperative debridement, and at this time, negative pressure therapy was initiated. On 05/05/2017 the patient underwent left below- the-knee amputation and wound VAC application. The patient was taken to the operating room on 05/07/2017 for left BKA stump wound washout with partial closure and wound VAC application. PAST MEDICAL HISTORY: Diabetes mellitus. PAST SURGICAL HISTORY: 1. Amputation of right great toe and metatarsal and debridement of callus and neuropathic ulcer of left foot. 2. Multiple surgical procedures of left lower extremity as per HPI. MEDICATIONS: The patient does not have a list of his medications with him today. ALLERGIES: No known diagnosed allergies. SOCIAL HISTORY: Significant for cigarette smoking on a "social" basis in the past. The patient also admits to the consumption of alcohol on a social basis. FAMILY HISTORY: Significant for diabetes mellitus. The patient's mother, 2 brothers, and sister were all diagnosed with diabetes mellitus. Family history is also significant for coronary artery disease. The patient's father and brother were diagnosed with coronary artery disease. PHYSICAL EXAMINATION: VITAL SIGNS: Temperature 98.1, pulse 90, respirations 18, blood pressure 134/ 71. Accu-Chek 145. GENERAL: A 47-year-old gentleman sitting on table in examination room, in no acute distress. HEENT: Normocephalic, atraumatic. NECK: No nuchal rigidity. CHEST: Clear to auscultation. CARDIAC: Regular rate and rhythm. ABDOMEN: Soft. EXTREMITIES: An ulceration of the left lateral BKA stump is present, which measures approximately 3.0 x 5.2 cm. Granulation tissue is present within the wound margins. Necrotic and nonviable tissue present within the wound margins was debrided with an excisional full-thickness debridement with the use of scissors. No purulent drainage is associated with the wound. No erythema of the skin surrounding the wound is present. No maceration of the skin of the periwound is noted. A popliteal pulse is easily palpable on the left. No significant edema of the left BKA stump is appreciated on exam today. ASSESSMENT AND PLAN: 1. Ulceration of left lateral BKA stump as described above. Negative pressure therapy will be continued with dressing changes of the wound VAC 2 times per week here in the Wound Center. The patient has an appointment with Dr. Paul Vyas in 3 days. I will see Mr. Cooley again as needed after his evaluation by General Surgery. 2. Diabetes mellitus. The patient's Accu-Chek in clinic today is 145. The patient has been reminded that for optimal wound healing, his blood glucoses should remain below 150. MTDD
[2017-06-16] MEDS ORDERED: Sodium Chloride 0.9% 15 ML NEB ONE (19:53)
== END 2017-06-16 13:42 | disposition home or self-care (01) ==
LOC: WCC 13:41
PROVIDERS: ATTEND Family Medicine
DX: T81.89XD Other complications of procedures, not elsewhere classified, subsequent encounter (principal); S91.301D Unspecified open wound, right foot, subsequent encounter; Z89.411 Acquired absence of right great toe
CPT/HCPCS: 11042; 99203; A4218; G0463

== ENCOUNTER 2022-09-23 09:45 | Inpatient (IN) | payer SELFPAY, OTHER ==
[2022-09-23 12:48] LABS: #Monocytes 1.1 thou/uL (0.11-0.59); #Neutrophils 13.5 thou/uL (1.40-6.50); %Basophils 0.2 % (0.0-1.0); %Eosinophils 0.2 % (0.0-10.0); %Lymphocytes 4.5 % (21.0-51.0); %Monocytes 7.2 % (0.0-10.0); %Neutrophils 87.4 % (42.0-75.0); Hemoglobin 10.7 g/dL (14.0-18.0); Mean Corpuscular HGB CONC 31.3 g/dL (32.0-36.0); Mean Corpuscular Hemoglobin 29.2 pg (27.0-31.0); Mean Corpuscular Volume 93.2 fl (78.0-98.0); Mean Platelet Volume 9.1 fL (7.4-10.4); Platelet Count 371 10x3/uL (130-400); RBC Distribution Width 15.9 % (11.5-14.5); Red Blood Cell (RBC) Count 3.67 mill/uL (4.70-6.10); White Blood Cell (WBC) Count 15.4 10x3/uL (4.8-10.8)
[2022-09-23 13:07] LABS: ALT (SGPT) 7 U/L (8-55); AST (SGOT) 16 U/L (5-34); Albumin 3.2 g/dL (3.5-5.0); Alkaline Phosphatase 74 U/L (40-110); BUN (Urea Nitrogen) 69 mg/dL (8.4-25.7); Bilirubin, Total 0.5 mg/dL (0.2-1.2); Calc. Creatinine Clearance 0 mL/min (70-130); Chloride 111 mmol/L (98-107); Estimated GFR 8; Globulin 3.7 g/dL (2.4-3.5); Glucose 82 mg/dL (70-105); Magnesium 1.4 mg/dL (1.6-2.6); Potassium 4.4 mmol/L (3.5-5.1); Protein, Total 6.9 g/dL (6.0-8.3); Sodium 138 mmol/L (136-145)
[2022-09-23 13:12] LABS: Calcium 5.8 mg/dL (7.8-10.44); Carbon Dioxide Less than 8 mmol/L (22-29)
[2022-09-23] MEDS ORDERED: cefTRIAXone (ROCEPHIN) 2 GM VIAL ONE (14:09)
[2022-09-23] MEDS ORDERED: Azithromycin 500 MG VIAL ONE (14:09)
[2022-09-23 14:10] LABS: Base Excess -15.4 mEq/L (-2.0 to +3.0); Chloride (VBG) 110 mmol/L (98-106); Hematocrit-VBG 38 % (42.0-52.0); Potassium (VBG) 4.66 mmol/L (3.70-5.30); pH (venous) 7.291 (7.32-7.43)
[2022-09-23] MEDS ORDERED: Sodium Bicarb 50 MEQ/50 ML VIAL ONE (14:10)
[2022-09-23 14:11] LABS: Actual Bicarbonate (HCO3v) 8.8 mEq/L (22-28); Calcium, Ionized (venous) 0.67 mmol/L (1.16-1.32)
[2022-09-23 14:12] LABS: CK (CPK) 721 U/L (30-200); Lipase 19 U/L (8-78)
[2022-09-23] MEDS ORDERED: Dextrose 50% Abboject 50 ML SYRINGE SLOW IVP PRN (14:13)
[2022-09-23] MEDS ORDERED: Glucagon 1 MG/ML KIT IM PRN (14:13)
[2022-09-23] MEDS ORDERED: Dextrose 5% in Water 1,000 ML IV PRN (14:13)
[2022-09-23] MEDS ORDERED: Acetaminophen 325 MG TAB PO PRN (14:13)
[2022-09-23] MEDS ORDERED: Sodium Chloride 0.9% 1,000 ML IV SCH (14:30)
[2022-09-23 14:41] LABS: SARS-CoV-2 NAA Rapid Test Not Detected (NotDetected)
[2022-09-23 15:39] LABS: Bacteria/HPF 1+ HPF (None Seen); Bilirubin Negative (Negative); Blood, Urine 2+ (Negative); CAUTI Indications for Culture Dysuria,urgency,freq; Clarity Turbid (Clear); Glucose, Urine (Dipstick) 100 mg/dL (Negative); Ketone, Urine 10 mg/dL (Negative); Leukocyte Negative Leu/uL (Negative); Nitrite Negative (Negative); Protein, Urine (Dipstick) 600 mg/dL (Neg-Trace); Specific Gravity, Urine 1.016 (1.002-1.036); Squamous Epithelial 0-3 HPF (0-3); Urobilinogen Normal mg/dL (Less than 2)
[2022-09-23 15:41] LABS: Urine Culture Reflex No No
[2022-09-23 15:50] LABS: Anion Gap 22 mmol/L (10-20); BUN (Urea Nitrogen) 66 mg/dL (8.4-25.7); Calc. Creatinine Clearance 0 mL/min (70-130); Carbon Dioxide 10 mmol/L (22-29); Chloride 112 mmol/L (98-107); Estimated GFR 8; Glucose 85 mg/dL (70-105); Potassium 3.8 mmol/L (3.5-5.1); Sodium 140 mmol/L (136-145)
[2022-09-23] MEDS ORDERED: CALCIUM GLUC 1 GM/NS 50 ML 1 GM in Premix Bag 1 BAG IVPB SCH (16:00)
[2022-09-23] MEDS ORDERED: HYDROcodone/Acetaminophen 5/325 mg Tablet ONE (16:24)
[2022-09-23] MEDS: HYDROcodone/Acetaminophen 5/325 mg Tablet PO PRN ×2 (16:33→21:56)
[2022-09-23] MEDS: Heparin 5,000 UNITS/ML VIAL SC SCH ×2 (18:14→21:50)
[2022-09-23 19:24] LABS: Phosphorus 5.7 mg/dL (2.3-4.7)
[2022-09-23] MEDS ORDERED: Calcium Carbonate 500 MG ChewTAB PO SCH (21:00)
[2022-09-23] MEDS: Sodium Bicarbonate 150 MEQ in Dextrose 5% in Water 1,000 ML IV SCH (21:43)
[2022-09-24] MEDS ORDERED: NIFEdipine XL 60 MG TAB PO SCH (00:30)
[2022-09-24 05:00] LABS: #Eosinphils 0.1 thou/uL (0.0-0.7); #Monocytes 1.1 thou/uL (0.11-0.59); #Neutrophils 11.8 thou/uL (1.40-6.50); %Basophils 0.2 % (0.0-1.0); %Lymphocytes 4.9 % (21.0-51.0); %Monocytes 8.2 % (0.0-10.0); %Neutrophils 85.2 % (42.0-75.0); Hemoglobin 9.6 g/dL (14.0-18.0); Mean Corpuscular HGB CONC 31.2 g/dL (32.0-36.0); Mean Corpuscular Hemoglobin 28.9 pg (27.0-31.0); Mean Corpuscular Volume 92.8 fl (78.0-98.0); Platelet Count 303 10x3/uL (130-400); RBC Distribution Width 15.8 % (11.5-14.5); Red Blood Cell (RBC) Count 3.32 mill/uL (4.70-6.10); White Blood Cell (WBC) Count 13.9 10x3/uL (4.8-10.8)
[2022-09-24 05:20] LABS: Anion Gap 20 mmol/L (10-20); BUN (Urea Nitrogen) 66 mg/dL (8.4-25.7); CK (CPK) 583 U/L (30-200); Calc. Creatinine Clearance 22 mL/min (70-130); Carbon Dioxide 13 mmol/L (22-29); Chloride 108 mmol/L (98-107); Estimated GFR 9; Glucose 128 mg/dL (70-105); Potassium 3.6 mmol/L (3.5-5.1); Sodium 137 mmol/L (136-145)
[2022-09-24] MEDS: Sodium Bicarbonate 150 MEQ in Dextrose 5% in Water 1,000 ML IV SCH ×2 (09:06→22:21)
[2022-09-24] MEDS: Calcium Carbonate 500 MG ChewTAB PO SCH ×3 (09:07→15:14)
[2022-09-24] MEDS: Heparin 5,000 UNITS/ML VIAL SC SCH ×3 (09:08→21:30)
[2022-09-24] MEDS: Calcitriol 0.25 MCG CAP PO SCH (09:08)
[2022-09-24] MEDS: Folic Acid/Vit B Comp W-C PO SCH (09:08)
[2022-09-24] MEDS: HYDROcodone/Acetaminophen 5/325 mg Tablet PO PRN (12:02)
[2022-09-24] MEDS: cefTRIAXone\\ROCEPHIN 1 GM in Sodium Chloride 0.9% 100 ML IVPB SCH (15:15)
[2022-09-24] MEDS: Carvedilol 6.25 MG TAB PO SCH (15:15)
[2022-09-24] MEDS: Azithromycin 500 MG in Sodium Chloride 0.9% 250 ML 250 ML IVPB SCH (15:18)
[2022-09-24] MEDS: Ondansetron PF 4 MG/2 ML Vial IVP PRN (20:28)
[2022-09-24] MEDS: NIFEdipine XL 30 MG TAB PO SCH (21:00)
[2022-09-24] MEDS: Nystatin Powder 15 GM BOT TOP SCH (21:20)
[2022-09-24] MEDS: guaiFENesin ER 600 MG TAB PO SCH (22:25)
[2022-09-24 22:50] LABS: Anion Gap 17 mmol/L (10-20); BUN (Urea Nitrogen) 57 mg/dL (8.4-25.7); Calc. Creatinine Clearance 23 mL/min (70-130); Carbon Dioxide 18 mmol/L (22-29); Chloride 102 mmol/L (98-107); Estimated GFR 9; Glucose 189 mg/dL (70-105); Potassium 3.4 mmol/L (3.5-5.1); Sodium 134 mmol/L (136-145)
[2022-09-24 22:54] LABS: Calcium 6.2 mg/dL (7.8-10.44)
[2022-09-24] MEDS ORDERED: Potassium Chloride 20 MEQ TAB PO SCH (23:59)
[2022-09-25] MEDS: HYDROcodone/Acetaminophen 5/325 mg Tablet PO PRN (04:20)
[2022-09-25 05:15] LABS: #Monocytes 1.1 thou/uL (0.11-0.59); #Neutrophils 13.5 thou/uL (1.40-6.50); %Basophils 0.3 % (0.0-1.0); %Eosinophils 0.1 % (0.0-10.0); %Lymphocytes 4.2 % (21.0-51.0); %Monocytes 7.2 % (0.0-10.0); %Neutrophils 87.3 % (42.0-75.0); Hemoglobin 8.9 g/dL (14.0-18.0); Mean Corpuscular HGB CONC 31.3 g/dL (32.0-36.0); Mean Corpuscular Hemoglobin 28.3 pg (27.0-31.0); Mean Corpuscular Volume 90.4 fl (78.0-98.0); Mean Platelet Volume 9.4 fL (7.4-10.4); Platelet Count 336 10x3/uL (130-400); RBC Distribution Width 15.8 % (11.5-14.5); Red Blood Cell (RBC) Count 3.14 mill/uL (4.70-6.10); White Blood Cell (WBC) Count 15.4 10x3/uL (4.8-10.8)
[2022-09-25 05:40] LABS: Albumin 2.4 g/dL (3.5-5.0); Anion Gap 17 mmol/L (10-20); BUN (Urea Nitrogen) 57 mg/dL (8.4-25.7); BUN/Creatinine Ratio 8.37; CK (CPK) 421 U/L (30-200); Calc. Creatinine Clearance 23 mL/min (70-130); Carbon Dioxide 20 mmol/L (22-29); Chloride 101 mmol/L (98-107); Estimated GFR 9; Glucose 146 mg/dL (70-105); Phosphorus 5.7 mg/dL (2.3-4.7); Potassium 3.3 mmol/L (3.5-5.1); Sodium 135 mmol/L (136-145)
[2022-09-25 05:47] LABS: Calcium 6.2 mg/dL (7.8-10.44)
[2022-09-25] MEDS: Calcium Carbonate 500 MG ChewTAB PO SCH ×3 (09:01→17:24)
[2022-09-25] MEDS: Folic Acid/Vit B Comp W-C PO SCH (09:02)
[2022-09-25] MEDS: Carvedilol 6.25 MG TAB PO SCH ×2 (09:02→17:25)
[2022-09-25] MEDS: NIFEdipine XL 30 MG TAB PO SCH ×2 (09:02→21:07)
[2022-09-25] MEDS: Nystatin Powder 15 GM BOT TOP SCH ×2 (09:03→21:44)
[2022-09-25] MEDS: Calcitriol 0.25 MCG CAP PO SCH (09:03)
[2022-09-25] MEDS: Aspirin Chewable 81 MG TAB PO SCH (09:03)
[2022-09-25] MEDS: guaiFENesin ER 600 MG TAB PO SCH ×2 (09:03→21:06)
[2022-09-25] MEDS: Heparin 5,000 UNITS/ML VIAL SC SCH ×3 (09:03→21:06)
[2022-09-25] MEDS: Sodium Bicarbonate 150 MEQ in Dextrose 5% in Water 1,000 ML IV SCH ×4 (10:06→23:38)
[2022-09-25] MEDS ORDERED: Magnesium 2 GM/50 ML(in water) 2 GM in Premix Bag 1 BAG IVPB SCH (11:00)
[2022-09-25] MEDS: Azithromycin 500 MG in Sodium Chloride 0.9% 250 ML 250 ML IVPB SCH (14:46)
[2022-09-25] MEDS: cefTRIAXone\\ROCEPHIN 1 GM in Sodium Chloride 0.9% 100 ML IVPB SCH (14:46)
[2022-09-26] MEDS: HYDROcodone/Acetaminophen 5/325 mg Tablet PO PRN ×3 (05:17→21:26)
[2022-09-26] MEDS: Sodium Bicarbonate 150 MEQ in Dextrose 5% in Water 1,000 ML IV SCH (06:22)
[2022-09-26] MEDS: guaiFENesin ER 600 MG TAB PO SCH ×2 (09:05→21:28)
[2022-09-26] MEDS: NIFEdipine XL 30 MG TAB PO SCH ×2 (09:05→21:26)
[2022-09-26] MEDS: Calcium Carbonate 500 MG ChewTAB PO SCH ×3 (09:05→16:57)
[2022-09-26] MEDS: Carvedilol 6.25 MG TAB PO SCH ×2 (09:06→16:57)
[2022-09-26] MEDS: Heparin 5,000 UNITS/ML VIAL SC SCH ×3 (09:06→21:28)
[2022-09-26] MEDS: Folic Acid/Vit B Comp W-C PO SCH (09:06)
[2022-09-26] MEDS: Aspirin Chewable 81 MG TAB PO SCH (09:06)
[2022-09-26] MEDS: Calcitriol 0.25 MCG CAP PO SCH (09:06)
[2022-09-26 09:53] LABS: #Eosinphils 0.1 thou/uL (0.0-0.7); #Monocytes 0.9 thou/uL (0.11-0.59); #Neutrophils 12.7 thou/uL (1.40-6.50); %Basophils 0.2 % (0.0-1.0); %Eosinophils 0.6 % (0.0-10.0); %Lymphocytes 5.2 % (21.0-51.0); %Monocytes 6.2 % (0.0-10.0); %Neutrophils 87.2 % (42.0-75.0); Hemoglobin 8.6 g/dL (14.0-18.0); Mean Corpuscular HGB CONC 31.9 g/dL (32.0-36.0); Mean Corpuscular Hemoglobin 29.1 pg (27.0-31.0); Mean Corpuscular Volume 91.2 fl (78.0-98.0); Mean Platelet Volume 8.9 fL (7.4-10.4); Platelet Count 365 10x3/uL (130-400); RBC Distribution Width 15.6 % (11.5-14.5); Red Blood Cell (RBC) Count 2.96 mill/uL (4.70-6.10); White Blood Cell (WBC) Count 14.5 10x3/uL (4.8-10.8)
[2022-09-26 10:17] LABS: Anion Gap 18 mmol/L (10-20); BUN (Urea Nitrogen) 66 mg/dL (8.4-25.7); Calc. Creatinine Clearance 21 mL/min (70-130); Carbon Dioxide 26 mmol/L (22-29); Chloride 94 mmol/L (98-107); Estimated GFR 8; Glucose 149 mg/dL (70-105); Potassium 3.4 mmol/L (3.5-5.1); Sodium 135 mmol/L (136-145)
[2022-09-26] MEDS: Nystatin Powder 15 GM BOT TOP SCH ×2 (10:20→23:13)
[2022-09-26 10:24] LABS: Calcium 6.6 mg/dL (7.8-10.44)
[2022-09-27 03:56] LABS: #Eosinphils 0.1 thou/uL (0.0-0.7); #Monocytes 1.1 thou/uL (0.11-0.59); #Neutrophils 11.6 thou/uL (1.40-6.50); %Basophils 0.2 % (0.0-1.0); %Eosinophils 0.8 % (0.0-10.0); %Lymphocytes 6.3 % (21.0-51.0); %Neutrophils 84.1 % (42.0-75.0); Hemoglobin 8.5 g/dL (14.0-18.0); Mean Corpuscular HGB CONC 30.5 g/dL (32.0-36.0); Mean Corpuscular Hemoglobin 28.5 pg (27.0-31.0); Mean Corpuscular Volume 93.6 fl (78.0-98.0); Mean Platelet Volume 9.3 fL (7.4-10.4); Platelet Count 361 10x3/uL (130-400); RBC Distribution Width 15.6 % (11.5-14.5); Red Blood Cell (RBC) Count 2.98 mill/uL (4.70-6.10); White Blood Cell (WBC) Count 13.8 10x3/uL (4.8-10.8)
[2022-09-27 04:30] LABS: Anion Gap 18 mmol/L (10-20); BUN (Urea Nitrogen) 70 mg/dL (8.4-25.7); Calc. Creatinine Clearance 21 mL/min (70-130); Carbon Dioxide 27 mmol/L (22-29); Chloride 93 mmol/L (98-107); Estimated GFR 8; Glucose 135 mg/dL (70-105); Potassium 3.7 mmol/L (3.5-5.1); Sodium 134 mmol/L (136-145)
[2022-09-27 04:39] LABS: Calcium 6.6 mg/dL (7.8-10.44)
[2022-09-27] MEDS: Calcitriol 0.25 MCG CAP PO SCH (09:53)
[2022-09-27] MEDS: Aspirin Chewable 81 MG TAB PO SCH (09:53)
[2022-09-27] MEDS: guaiFENesin ER 600 MG TAB PO SCH ×2 (09:53→20:59)
[2022-09-27] MEDS: Folic Acid/Vit B Comp W-C PO SCH (09:53)
[2022-09-27] MEDS: Calcium Carbonate 500 MG ChewTAB PO SCH ×3 (09:53→16:50)
[2022-09-27] MEDS: NIFEdipine XL 30 MG TAB PO SCH ×2 (09:54→21:12)
[2022-09-27] MEDS: Heparin 5,000 UNITS/ML VIAL SC SCH ×3 (09:55→20:59)
[2022-09-27] MEDS: Carvedilol 6.25 MG TAB PO SCH ×2 (09:55→16:50)
[2022-09-27] MEDS: Nystatin Powder 15 GM BOT TOP SCH ×2 (09:56→21:00)
[2022-09-27] MEDS ORDERED: Cefdinir 300 MG CAP PO SCH (21:15)
[2022-09-28 04:20] LABS: #Eosinphils 0.1 thou/uL (0.0-0.7); #Neutrophils 13.4 thou/uL (1.40-6.50); %Basophils 0.3 % (0.0-1.0); %Eosinophils 0.5 % (0.0-10.0); %Lymphocytes 5.3 % (21.0-51.0); %Monocytes 6.7 % (0.0-10.0); %Neutrophils 86.6 % (42.0-75.0); Hemoglobin 7.9 g/dL (14.0-18.0); Mean Corpuscular HGB CONC 30.4 g/dL (32.0-36.0); Mean Corpuscular Volume 92.2 fl (78.0-98.0); Mean Platelet Volume 9.3 fL (7.4-10.4); Platelet Count 393 10x3/uL (130-400); RBC Distribution Width 15.2 % (11.5-14.5); Red Blood Cell (RBC) Count 2.82 mill/uL (4.70-6.10); White Blood Cell (WBC) Count 15.5 10x3/uL (4.8-10.8)
[2022-09-28 04:44] LABS: Anion Gap 20 mmol/L (10-20); BUN (Urea Nitrogen) 83 mg/dL (8.4-25.7); Calc. Creatinine Clearance 19 mL/min (70-130); Carbon Dioxide 28 mmol/L (22-29); Chloride 90 mmol/L (98-107); Estimated GFR 7; Glucose 168 mg/dL (70-105); Potassium 3.7 mmol/L (3.5-5.1); Sodium 134 mmol/L (136-145)
[2022-09-28 05:03] LABS: Calcium 6.9 mg/dL (7.8-10.44)
[2022-09-28] MEDS ORDERED: CEFAZOLIN 2 GM in Sodium Chloride 0.9% 100 ML IVPB SCH (07:00)
[2022-09-28] MEDS ORDERED: Lidocaine 2% PF 5 ML VIAL ONE (07:41)
[2022-09-28] MEDS ORDERED: Heparin 10,000 UNITS/ 10 ML VIAL ONE (07:41)
[2022-09-28] MEDS ORDERED: Bupivacaine HCl 0.5%/Epinephrine 1:200,000/PF 30 ml Vial ONE (07:41)
[2022-09-28] MEDS ORDERED: Sodium Chloride 0.9% 100 ML ONE (08:54)
[2022-09-28] MEDS ORDERED: Famotidine/PF 20 mg/2ml Vial ONE (08:54)
[2022-09-28] MEDS ORDERED: Oxymetazoline HCl 0.05% (30 ML BOT) ONE (08:54)
[2022-09-28] MEDS ORDERED: CEFAZOLIN 2 GM VIAL ONE (08:54)
[2022-09-28] MEDS ORDERED: Propofol 500 MG/50 ML VIAL ONE (09:10)
[2022-09-28] MEDS ORDERED: fentaNYL PF 100 MCG/2 ML SYRINGE ONE (09:11)
[2022-09-28] MEDS ORDERED: Midazolam HCl 2 mg/2 ml Vial ONE (09:11)
[2022-09-28] MEDS ORDERED: Lidocaine 1% PF 5 ML VIAL ONE (09:18)
[2022-09-28] MEDS ORDERED: Promethazine HCl 25 MG/ML VIAL IM PRN (09:52)
[2022-09-28] MEDS ORDERED: Ondansetron HCl/PF 4 MG/2 ML Vial IVP PRN (09:52)
[2022-09-28] MEDS ORDERED: EPOETIN ALFA-EPBX (ESRD) 10,000 UNITS/ML VIAL SC SCH (11:45)
[2022-09-28 13:03] LABS: HBSAB Concentration Less than 8.00 mIU/mL; HBSAg Index 0.36 S/CO (0-0.99); Hep B Core Total Ab Non-Reactive (NonReactive); Hep B Core Total Index 0.52 S/CO (0-0.79); Hep B Surf AB Non-Reactive (NonReactive); Hep B Surf Ag Non-Reactive S/CO (NonReactive); Hep C IgG Ab Non-Reactive S/CO (NonReactive); Hep C Index 0.07 S/CO (0-0.79)
[2022-09-28] MEDS: Folic Acid/Vit B Comp W-C PO SCH (13:53)
[2022-09-28] MEDS: Carvedilol 6.25 MG TAB PO SCH ×2 (13:53→16:50)
[2022-09-28] MEDS: Calcium Carbonate 500 MG ChewTAB PO SCH ×2 (13:53→16:51)
[2022-09-28] MEDS: Aspirin Chewable 81 MG TAB PO SCH (13:53)
[2022-09-28] MEDS: Calcitriol 0.25 MCG CAP PO SCH (13:53)
[2022-09-28] MEDS: Heparin 5,000 UNITS/ML VIAL SC SCH ×3 (13:54→21:27)
[2022-09-28] MEDS: NIFEdipine XL 30 MG TAB PO SCH ×2 (13:54→21:28)
[2022-09-28] MEDS: Nystatin Powder 15 GM BOT TOP SCH ×2 (13:54→21:28)
[2022-09-28] MEDS: guaiFENesin ER 600 MG TAB PO SCH ×2 (13:54→21:28)
[2022-09-28] MEDS: HYDROcodone/Acetaminophen 5/325 mg Tablet PO PRN (17:54)
[2022-09-28] MEDS ORDERED: Cefdinir 300 MG CAP PO SCH (21:00)
[2022-09-29 05:06] LABS: #Eosinphils 0.1 thou/uL (0.0-0.7); #Monocytes 0.7 thou/uL (0.11-0.59); #Neutrophils 13.1 thou/uL (1.40-6.50); %Basophils 0.1 % (0.0-1.0); %Eosinophils 0.4 % (0.0-10.0); %Lymphocytes 2.6 % (21.0-51.0); %Neutrophils 91.4 % (42.0-75.0); Mean Corpuscular HGB CONC 30.3 g/dL (32.0-36.0); Mean Corpuscular Hemoglobin 28.8 pg (27.0-31.0); Platelet Count 346 10x3/uL (130-400); RBC Distribution Width 15.3 % (11.5-14.5); Red Blood Cell (RBC) Count 2.78 mill/uL (4.70-6.10); White Blood Cell (WBC) Count 14.3 10x3/uL (4.8-10.8)
[2022-09-29 05:29] LABS: Anion Gap 17 mmol/L (10-20); BUN (Urea Nitrogen) 68 mg/dL (8.4-25.7); Calc. Creatinine Clearance 23 mL/min (70-130); Calcium 7.2 mg/dL (7.8-10.44); Carbon Dioxide 26 mmol/L (22-29); Chloride 95 mmol/L (98-107); Estimated GFR 9; Glucose 136 mg/dL (70-105); Potassium 3.9 mmol/L (3.5-5.1); Sodium 134 mmol/L (136-145)
[2022-09-29] MEDS ORDERED: Heparin 10,000 UNITS/ 10 ML VIAL ONE (10:52)
[2022-09-29] MEDS: Naproxen 500 MG TAB PO SCH ×2 (11:19→22:26)
[2022-09-29] MEDS: Calcitriol 0.25 MCG CAP PO SCH (11:20)
[2022-09-29] MEDS: guaiFENesin ER 600 MG TAB PO SCH ×2 (11:20→22:26)
[2022-09-29] MEDS: Carvedilol 6.25 MG TAB PO SCH ×2 (11:20→16:28)
[2022-09-29] MEDS: Calcium Carbonate 500 MG ChewTAB PO SCH ×3 (11:20→16:28)
[2022-09-29] MEDS: Folic Acid/Vit B Comp W-C PO SCH (11:20)
[2022-09-29] MEDS: Heparin 5,000 UNITS/ML VIAL SC SCH ×3 (11:20→22:27)
[2022-09-29] MEDS: NIFEdipine XL 30 MG TAB PO SCH ×2 (11:20→22:26)
[2022-09-29] MEDS: Nystatin Powder 15 GM BOT TOP SCH ×2 (11:21→22:31)
[2022-09-29] MEDS: Aspirin Chewable 81 MG TAB PO SCH (11:21)
[2022-09-29] MEDS ORDERED: predniSONE 20 MG TAB PO SCH (12:00)
[2022-09-30] MEDS: Calcitriol 0.25 MCG CAP PO SCH (09:39)
[2022-09-30] MEDS: Folic Acid/Vit B Comp W-C PO SCH (09:39)
[2022-09-30] MEDS: Calcium Carbonate 500 MG ChewTAB PO SCH ×3 (09:39→18:02)
[2022-09-30] MEDS: Naproxen 500 MG TAB PO SCH (09:40)
[2022-09-30] MEDS: Aspirin Chewable 81 MG TAB PO SCH (09:40)
[2022-09-30] MEDS: Carvedilol 6.25 MG TAB PO SCH ×2 (09:40→18:02)
[2022-09-30] MEDS: guaiFENesin ER 600 MG TAB PO SCH ×2 (09:40→20:21)
[2022-09-30] MEDS: Heparin 5,000 UNITS/ML VIAL SC SCH ×3 (09:40→20:24)
[2022-09-30] MEDS: Nystatin Powder 15 GM BOT TOP SCH ×2 (09:41→21:16)
[2022-09-30] MEDS: NIFEdipine XL 30 MG TAB PO SCH ×2 (09:41→20:21)
[2022-09-30] MEDS ORDERED: predniSONE 20 MG TAB PO SCH (12:30)
[2022-09-30] MEDS ORDERED: Tuberculin PPD 0.1 ML VIAL I-DERMAL ONE (14:00)
[2022-09-30] MEDS: Ondansetron PF 4 MG/2 ML Vial IVP PRN (20:22)
[2022-10-01] MEDS: HumaLOG 300 UNITS/3 ML VIAL SC PRN (06:17)
[2022-10-01] MEDS: Calcium Carbonate 500 MG ChewTAB PO SCH ×3 (08:43→17:36)
[2022-10-01] MEDS: Heparin 5,000 UNITS/ML VIAL SC SCH ×3 (08:43→20:37)
[2022-10-01] MEDS: guaiFENesin ER 600 MG TAB PO SCH ×2 (08:44→20:36)
[2022-10-01] MEDS: Carvedilol 6.25 MG TAB PO SCH ×2 (08:44→17:36)
[2022-10-01] MEDS: Calcitriol 0.25 MCG CAP PO SCH (08:44)
[2022-10-01] MEDS: Folic Acid/Vit B Comp W-C PO SCH (08:44)
[2022-10-01] MEDS: NIFEdipine XL 30 MG TAB PO SCH ×2 (08:44→20:36)
[2022-10-01] MEDS: Aspirin Chewable 81 MG TAB PO SCH (08:45)
[2022-10-01] MEDS: Nystatin Powder 15 GM BOT TOP SCH ×2 (08:45→20:40)
[2022-10-01] MEDS ORDERED: Heparin 10,000 UNITS/ 10 ML VIAL ONE (09:46)
[2022-10-01] MEDS ORDERED: predniSONE 20 MG TAB PO SCH (11:30)
[2022-10-02] MEDS: Nystatin Powder 15 GM BOT TOP SCH ×2 (08:46→20:51)
[2022-10-02] MEDS ORDERED: Allopurinol 100 MG TAB PO SCH (09:00)
[2022-10-02] MEDS: Carvedilol 6.25 MG TAB PO SCH ×2 (09:38→18:07)
[2022-10-02] MEDS: Calcium Carbonate 500 MG ChewTAB PO SCH ×3 (09:38→18:07)
[2022-10-02] MEDS: Calcitriol 0.25 MCG CAP PO SCH (09:41)
[2022-10-02] MEDS: Folic Acid/Vit B Comp W-C PO SCH (09:41)
[2022-10-02] MEDS: guaiFENesin ER 600 MG TAB PO SCH ×2 (09:41→20:50)
[2022-10-02] MEDS: Aspirin Chewable 81 MG TAB PO SCH (09:41)
[2022-10-02] MEDS: Allopurinol 100 MG TAB PO SCH (09:41)
[2022-10-02] MEDS: Heparin 5,000 UNITS/ML VIAL SC SCH ×3 (09:42→20:50)
[2022-10-02] MEDS: NIFEdipine XL 30 MG TAB PO SCH ×2 (09:42→20:50)
[2022-10-02] MEDS ORDERED: predniSONE 20 MG TAB PO SCH (11:45)
[2022-10-02] MEDS: HumaLOG 300 UNITS/3 ML VIAL SC PRN ×3 (13:48→22:22)
[2022-10-03] MEDS: HumaLOG 300 UNITS/3 ML VIAL SC PRN ×3 (05:44→21:20)
[2022-10-03 08:04] LABS: #Monocytes 0.7 thou/uL (0.11-0.59); #Neutrophils 13.3 thou/uL (1.40-6.50); %Basophils 0.1 % (0.0-1.0); %Monocytes 4.2 % (0.0-10.0); %Neutrophils 86.2 % (42.0-75.0); Hemoglobin 8.6 g/dL (14.0-18.0); Mean Corpuscular HGB CONC 29.6 g/dL (32.0-36.0); Mean Corpuscular Hemoglobin 28.3 pg (27.0-31.0); Mean Corpuscular Volume 95.7 fl (78.0-98.0); Mean Platelet Volume 8.8 fL (7.4-10.4); Platelet Count 422 10x3/uL (130-400); RBC Distribution Width 14.6 % (11.5-14.5); Red Blood Cell (RBC) Count 3.04 mill/uL (4.70-6.10); White Blood Cell (WBC) Count 15.4 10x3/uL (4.8-10.8)
[2022-10-03 08:24] LABS: Anion Gap 19 mmol/L (10-20); BUN (Urea Nitrogen) 99 mg/dL (8.4-25.7); Calc. Creatinine Clearance 27 mL/min (70-130); Calcium 8.2 mg/dL (7.8-10.44); Carbon Dioxide 23 mmol/L (22-29); Chloride 95 mmol/L (98-107); Estimated GFR 11; Glucose 191 mg/dL (70-105); Potassium 4.6 mmol/L (3.5-5.1); Sodium 132 mmol/L (136-145)
[2022-10-03] MEDS ORDERED: Heparin 10,000 UNITS/ 10 ML VIAL ONE (10:03)
[2022-10-03] MEDS: NIFEdipine XL 30 MG TAB PO SCH ×2 (10:50→20:37)
[2022-10-03] MEDS: Folic Acid/Vit B Comp W-C PO SCH (10:50)
[2022-10-03] MEDS: Aspirin Chewable 81 MG TAB PO SCH (10:50)
[2022-10-03] MEDS: Calcitriol 0.25 MCG CAP PO SCH (10:50)
[2022-10-03] MEDS: guaiFENesin ER 600 MG TAB PO SCH ×2 (10:50→20:37)
[2022-10-03] MEDS: Heparin 5,000 UNITS/ML VIAL SC SCH ×3 (10:53→20:38)
[2022-10-03] MEDS: Nystatin Powder 15 GM BOT TOP SCH ×2 (10:57→20:38)
[2022-10-03] MEDS: Calcium Carbonate 500 MG ChewTAB PO SCH ×3 (10:57→17:36)
[2022-10-03] MEDS: Carvedilol 6.25 MG TAB PO SCH ×2 (11:02→17:34)
[2022-10-03] MEDS ORDERED: predniSONE 20 MG TAB PO SCH (12:30)
[2022-10-03] MEDS: Allopurinol 100 MG TAB PO SCH (14:52)
[2022-10-03] MEDS ORDERED: HYDROcodone/Acetaminophen 5/325 mg Tablet PO PRN (15:18)
[2022-10-04] MEDS: HumaLOG 300 UNITS/3 ML VIAL SC PRN ×3 (06:01→15:40)
[2022-10-04] MEDS: Calcitriol 0.25 MCG CAP PO SCH (08:38)
[2022-10-04] MEDS: Calcium Carbonate 500 MG ChewTAB PO SCH ×3 (08:38→16:52)
[2022-10-04] MEDS: guaiFENesin ER 600 MG TAB PO SCH ×2 (08:38→20:35)
[2022-10-04] MEDS: NIFEdipine XL 30 MG TAB PO SCH (08:38)
[2022-10-04] MEDS: Carvedilol 6.25 MG TAB PO SCH ×2 (08:38→16:51)
[2022-10-04] MEDS: Folic Acid/Vit B Comp W-C PO SCH (08:38)
[2022-10-04] MEDS: Aspirin Chewable 81 MG TAB PO SCH (08:38)
[2022-10-04] MEDS: Allopurinol 100 MG TAB PO SCH (08:38)
[2022-10-04] MEDS: Nystatin Powder 15 GM BOT TOP SCH ×2 (08:39→20:36)
[2022-10-04] MEDS: Heparin 5,000 UNITS/ML VIAL SC SCH ×3 (08:39→20:35)
[2022-10-04] MEDS: Polyethylene Glycol 3350 17 GM Packet PO PRN (09:00)
[2022-10-04] MEDS: Losartan 25 MG TAB PO SCH (09:15)
[2022-10-05] MEDS ORDERED: Heparin 10,000 UNITS/ 10 ML VIAL ONE (08:45)
[2022-10-05] MEDS: Calcium Carbonate 500 MG ChewTAB PO SCH ×3 (08:59→16:55)
[2022-10-05] MEDS: Carvedilol 6.25 MG TAB PO SCH ×2 (09:00→16:55)
[2022-10-05] MEDS: NIFEdipine XL 30 MG TAB PO SCH (09:00)
[2022-10-05] MEDS: guaiFENesin ER 600 MG TAB PO SCH ×2 (09:00→21:14)
[2022-10-05] MEDS: Aspirin Chewable 81 MG TAB PO SCH (09:00)
[2022-10-05] MEDS: Calcitriol 0.25 MCG CAP PO SCH (09:00)
[2022-10-05] MEDS: Losartan 25 MG TAB PO SCH (09:00)
[2022-10-05] MEDS: Folic Acid/Vit B Comp W-C PO SCH (09:00)
[2022-10-05] MEDS: Heparin 5,000 UNITS/ML VIAL SC SCH ×3 (09:00→21:14)
[2022-10-05] MEDS: Allopurinol 100 MG TAB PO SCH (09:00)
[2022-10-05] MEDS: Nystatin Powder 15 GM BOT TOP SCH ×2 (09:01→18:58)
[2022-10-05] MEDS: Polyethylene Glycol 3350 17 GM Packet PO PRN (16:55)
[2022-10-06] MEDS ORDERED: Ergocalciferol 1.25 MG(50,000 UNITS) CAP PO SCH (09:00)
[2022-10-06] MEDS: Calcium Carbonate 500 MG ChewTAB PO SCH ×4 (09:12→17:28)
[2022-10-06] MEDS: NIFEdipine XL 30 MG TAB PO SCH (09:13)
[2022-10-06] MEDS: Carvedilol 6.25 MG TAB PO SCH ×2 (09:14→17:19)
[2022-10-06] MEDS: Calcitriol 0.25 MCG CAP PO SCH (09:14)
[2022-10-06] MEDS: Folic Acid/Vit B Comp W-C PO SCH (09:14)
[2022-10-06] MEDS: guaiFENesin ER 600 MG TAB PO SCH ×2 (09:14→20:23)
[2022-10-06] MEDS: Losartan 25 MG TAB PO SCH (09:14)
[2022-10-06] MEDS: Aspirin Chewable 81 MG TAB PO SCH (09:14)
[2022-10-06] MEDS: Allopurinol 100 MG TAB PO SCH (09:14)
[2022-10-06] MEDS: Heparin 5,000 UNITS/ML VIAL SC SCH ×3 (09:15→20:23)
[2022-10-06] MEDS: Nystatin Powder 15 GM BOT TOP SCH ×2 (10:03→19:26)
[2022-10-06 15:45] LABS: #Eosinphils 0.2 thou/uL (0.0-0.7); #Monocytes 0.9 thou/uL (0.11-0.59); #Neutrophils 12.4 thou/uL (1.40-6.50); %Basophils 0.2 % (0.0-1.0); %Lymphocytes 9.3 % (21.0-51.0); %Monocytes 5.6 % (0.0-10.0); %Neutrophils 80.3 % (42.0-75.0); Hemoglobin 8.6 g/dL (14.0-18.0); Mean Corpuscular HGB CONC 30.7 g/dL (32.0-36.0); Mean Corpuscular Hemoglobin 29.6 pg (27.0-31.0); Mean Corpuscular Volume 96.2 fl (78.0-98.0); Mean Platelet Volume 8.8 fL (7.4-10.4); Platelet Count 406 10x3/uL (130-400); RBC Distribution Width 15.1 % (11.5-14.5); Red Blood Cell (RBC) Count 2.91 mill/uL (4.70-6.10); White Blood Cell (WBC) Count 15.4 10x3/uL (4.8-10.8)
[2022-10-06 16:06] LABS: Anion Gap 16 mmol/L (10-20); BUN (Urea Nitrogen) 71 mg/dL (8.4-25.7); Calc. Creatinine Clearance 31 mL/min (70-130); Carbon Dioxide 25 mmol/L (22-29); Chloride 99 mmol/L (98-107); Estimated GFR 14; Glucose 134 mg/dL (70-105); Potassium 4.3 mmol/L (3.5-5.1); Sodium 136 mmol/L (136-145)
[2022-10-06 16:09] LABS: Calcium 6.2 mg/dL (7.8-10.44)
[2022-10-07 04:22] LABS: #Eosinphils 0.2 thou/uL (0.0-0.7); #Monocytes 0.9 thou/uL (0.11-0.59); #Neutrophils 11.8 thou/uL (1.40-6.50); %Basophils 0.1 % (0.0-1.0); %Eosinophils 1.4 % (0.0-10.0); %Lymphocytes 9.6 % (21.0-51.0); %Monocytes 5.8 % (0.0-10.0); %Neutrophils 80.5 % (42.0-75.0); Hemoglobin 8.1 g/dL (14.0-18.0); Mean Corpuscular HGB CONC 29.8 g/dL (32.0-36.0); Mean Corpuscular Hemoglobin 28.6 pg (27.0-31.0); Mean Corpuscular Volume 96.1 fl (78.0-98.0); Mean Platelet Volume 8.7 fL (7.4-10.4); Platelet Count 378 10x3/uL (130-400); RBC Distribution Width 15.3 % (11.5-14.5); Red Blood Cell (RBC) Count 2.83 mill/uL (4.70-6.10); White Blood Cell (WBC) Count 14.7 10x3/uL (4.8-10.8)
[2022-10-07 04:46] LABS: Anion Gap 17 mmol/L (10-20); BUN (Urea Nitrogen) 79 mg/dL (8.4-25.7); Calc. Creatinine Clearance 29 mL/min (70-130); Carbon Dioxide 24 mmol/L (22-29); Chloride 99 mmol/L (98-107); Estimated GFR 13; Glucose 144 mg/dL (70-105); Potassium 4.3 mmol/L (3.5-5.1); Sodium 136 mmol/L (136-145)
[2022-10-07 04:53] LABS: Calcium 6.3 mg/dL (7.8-10.44)
[2022-10-07] MEDS: guaiFENesin ER 600 MG TAB PO SCH ×2 (09:20→20:14)
[2022-10-07] MEDS: Cholecalciferol 1,000 UNITS (25 MCG) TAB PO SCH (09:20)
[2022-10-07] MEDS: Heparin 5,000 UNITS/ML VIAL SC SCH ×3 (09:20→20:14)
[2022-10-07] MEDS: NIFEdipine XL 30 MG TAB PO SCH (09:21)
[2022-10-07] MEDS: Aspirin Chewable 81 MG TAB PO SCH (09:21)
[2022-10-07] MEDS: Calcitriol 0.25 MCG CAP PO SCH (09:21)
[2022-10-07] MEDS: Carvedilol 6.25 MG TAB PO SCH ×2 (09:21→16:59)
[2022-10-07] MEDS: Allopurinol 100 MG TAB PO SCH (09:21)
[2022-10-07] MEDS: Folic Acid/Vit B Comp W-C PO SCH (09:21)
[2022-10-07] MEDS: Losartan 25 MG TAB PO SCH (09:21)
[2022-10-07] MEDS: Nystatin Powder 15 GM BOT TOP SCH ×2 (09:22→19:34)
[2022-10-07] MEDS: Calcium Carbonate 500 MG ChewTAB PO SCH ×3 (09:22→16:58)
[2022-10-08 05:22] LABS: ALT (SGPT) 9 U/L (8-55); AST (SGOT) 12 U/L (5-34); Albumin 2.5 g/dL (3.5-5.0); Alkaline Phosphatase 70 U/L (40-110); Anion Gap 19 mmol/L (10-20); BUN (Urea Nitrogen) 86 mg/dL (8.4-25.7); Bilirubin, Total 0.2 mg/dL (0.2-1.2); Calc. Creatinine Clearance 27 mL/min (70-130); Carbon Dioxide 20 mmol/L (22-29); Chloride 101 mmol/L (98-107); Estimated GFR 11; Globulin 3.2 g/dL (2.4-3.5); Glucose 185 mg/dL (70-105); Potassium 4.1 mmol/L (3.5-5.1); Protein, Total 5.7 g/dL (6.0-8.3); Sodium 136 mmol/L (136-145)
[2022-10-08 05:39] LABS: Calcium 6.4 mg/dL (7.8-10.44)
[2022-10-08] MEDS: Allopurinol 100 MG TAB PO SCH (08:47)
[2022-10-08] MEDS: Aspirin Chewable 81 MG TAB PO SCH (08:47)
[2022-10-08] MEDS: Calcium Carbonate 500 MG ChewTAB PO SCH ×3 (08:47→16:49)
[2022-10-08] MEDS: Carvedilol 6.25 MG TAB PO SCH ×2 (08:48→16:49)
[2022-10-08] MEDS: Calcitriol 0.25 MCG CAP PO SCH (08:48)
[2022-10-08] MEDS: Cholecalciferol 1,000 UNITS (25 MCG) TAB PO SCH (08:48)
[2022-10-08] MEDS: Folic Acid/Vit B Comp W-C PO SCH (08:48)
[2022-10-08] MEDS: guaiFENesin ER 600 MG TAB PO SCH ×2 (08:48→20:53)
[2022-10-08] MEDS: Heparin 5,000 UNITS/ML VIAL SC SCH ×3 (08:48→20:53)
[2022-10-08] MEDS: Nystatin Powder 15 GM BOT TOP SCH ×2 (08:49→20:55)
[2022-10-08] MEDS: Losartan 25 MG TAB PO SCH (08:49)
[2022-10-08] MEDS: NIFEdipine XL 30 MG TAB PO SCH (08:49)
[2022-10-08] MEDS ORDERED: Heparin 10,000 UNITS/ 10 ML VIAL ONE (09:29)
[2022-10-08] MEDS: HumaLOG 300 UNITS/3 ML VIAL SC PRN (17:56)
[2022-10-09] MEDS: guaiFENesin ER 600 MG TAB PO SCH (08:46)
[2022-10-09] MEDS: Calcium Carbonate 500 MG ChewTAB PO SCH ×3 (08:46→16:09)
[2022-10-09] MEDS: Losartan 25 MG TAB PO SCH (08:46)
[2022-10-09] MEDS: Cholecalciferol 1,000 UNITS (25 MCG) TAB PO SCH (08:47)
[2022-10-09] MEDS: Allopurinol 100 MG TAB PO SCH (08:47)
[2022-10-09] MEDS: Heparin 5,000 UNITS/ML VIAL SC SCH ×2 (08:47→14:30)
[2022-10-09] MEDS: Calcitriol 0.25 MCG CAP PO SCH (08:47)
[2022-10-09] MEDS: NIFEdipine XL 30 MG TAB PO SCH (08:47)
[2022-10-09] MEDS: Carvedilol 6.25 MG TAB PO SCH ×2 (08:47→16:10)
[2022-10-09] MEDS: Aspirin Chewable 81 MG TAB PO SCH (08:47)
[2022-10-09] MEDS: Folic Acid/Vit B Comp W-C PO SCH (08:47)
[2022-10-09] MEDS: Nystatin Powder 15 GM BOT TOP SCH (08:48)
[2022-10-09 12:20] VITALS: BMI 35.9
[2022-10-09 17:49] VITALS: BP 150/83; TEMP 97.5
== END 2022-10-09 19:00 | disposition home or self-care (01) | DRG 674 ==
LOC: ERS 09:45 → ERHOLD 14:58 → 2NO 19:36 → T4-A 10-03 13:31
PROVIDERS: ADMIT Internal Medicine; ATTEND Hospitalist
PROC: 0JH63XZ Insertion of Tunneled Vascular Access Device into Chest Subcutaneous Tissue and Fascia, Percutaneous Approach (ICD-10-PCS; principal; 2022-09-28)
PROC: 02HV33Z Insertion of Infusion Device into Superior Vena Cava, Percutaneous Approach (ICD-10-PCS; 2022-09-28)
PROC: B5181ZA Fluoroscopy of Superior Vena Cava using Low Osmolar Contrast, Guidance (ICD-10-PCS; 2022-09-28)
PROC: 02HV33Z Insertion of Infusion Device into Superior Vena Cava, Percutaneous Approach (ICD-10-PCS; 2022-09-28)
PROC: B548ZZA Ultrasonography of Superior Vena Cava, Guidance (ICD-10-PCS; 2022-09-28)
PROC: 5A1D70Z Performance of Urinary Filtration, Intermittent, Less than 6 Hours Per Day (ICD-10-PCS; 2022-09-28)
PROC: 5A1D70Z Performance of Urinary Filtration, Intermittent, Less than 6 Hours Per Day (ICD-10-PCS; 2022-09-29)
PROC: 5A1D70Z Performance of Urinary Filtration, Intermittent, Less than 6 Hours Per Day (ICD-10-PCS; 2022-10-01)
PROC: 5A1D70Z Performance of Urinary Filtration, Intermittent, Less than 6 Hours Per Day (ICD-10-PCS; 2022-10-03)
PROC: 5A1D70Z Performance of Urinary Filtration, Intermittent, Less than 6 Hours Per Day (ICD-10-PCS; 2022-10-05)
PROC: 5A1D70Z Performance of Urinary Filtration, Intermittent, Less than 6 Hours Per Day (ICD-10-PCS; 2022-10-08)
DX: N17.9 Acute kidney failure, unspecified (principal); E87.21 Acute metabolic acidosis; I12.0 Hypertensive chronic kidney disease with stage 5 chronic kidney disease or end stage renal disease; N18.6 End stage renal disease; M10.9 Gout, unspecified; E78.5 Hyperlipidemia, unspecified; E11.22 Type 2 diabetes mellitus with diabetic chronic kidney disease; E83.51 Hypocalcemia; D63.1 Anemia in chronic kidney disease; E83.39 Other disorders of phosphorus metabolism; E87.6 Hypokalemia; E66.01 Morbid (severe) obesity due to excess calories; Z79.4 Long term (current) use of insulin; Z79.84 Long term (current) use of oral hypoglycemic drugs; Z79.899 Other long term (current) drug therapy; Z82.49 Family history of ischemic heart disease and other diseases of the circulatory system; Z89.411 Acquired absence of right great toe; Z89.512 Acquired absence of left leg below knee; Z68.36 Body mass index [BMI] 36.0-36.9, adult; Z87.891 Personal history of nicotine dependence; Z20.822 Contact with and (suspected) exposure to COVID-19
CPT/HCPCS: 36415; 36416; 71045; 76770; 80048; 80053; 80069; 81001; 82010; 82306; 82550; 82805; 83605; 83690; 83735; 83880; 83970; 84100; 84145; 84484; 84550; 85025; 86580; 86704; 87040; 90935; 93005; 93010; 93970; 94640; 94760; 96361; 96365; 96367; 96375; 97139; C1751; G0257; J0456; J0613; J0696; J1644; J1815; J2001; J2250; J2405; J2704; J3475; J3490; J7050; J7070; J7512; Q5105; S0028; U0002

== ENCOUNTER 2024-04-06 13:13 | Emergency (ER) | payer BC ==
[2024-04-06 14:20] LABS: #Basophils Less than 0.03 10x3/uL (0.0-0.2); %Basophils 0.2 % (0.0-1.0); %Eosinophils 0.3 % (0.0-10.0); %Lymphocytes 7.7 % (21.0-51.0); %Monocytes 6.1 % (0.0-10.0); %Neutrophils 85.4 % (42.0-75.0); Hemoglobin 10.9 g/dL (14.0-18.0); Mean Corpuscular HGB CONC 34.1 g/dL (32.0-36.0); Mean Corpuscular Hemoglobin 30.8 pg (27.0-31.0); Mean Corpuscular Volume 90.4 fL (78.0-98.0); Mean Platelet Volume 8.7 fL (7.4-10.4); Platelet Count 263 10x3/uL (130-400); RBC Distribution Width 13.6 % (11.5-14.5); Red Blood Cell (RBC) Count 3.54 mill/uL (4.70-6.10)
[2024-04-06] MEDS ORDERED: Acetaminophen 500 MG TAB ONE (14:28)
[2024-04-06 14:37] LABS: ALT (SGPT) 21 U/L (8-55); AST (SGOT) 28 U/L (5-34); Alkaline Phosphatase 54 U/L (40-110); Anion Gap 18 mmol/L (10-20); BUN (Urea Nitrogen) 40 mg/dL (8.4-25.7); Bilirubin, Total 0.7 mg/dL (0.2-1.2); Calc. Creatinine Clearance 0 mL/min (70-130); Calcium 9.3 mg/dL (7.8-10.44); Carbon Dioxide 30 mmol/L (22-29); Chloride 94 mmol/L (98-107); Estimated GFR 10; Globulin 4.8 g/dL (2.4-3.5); Glucose 204 mg/dL (70-105); Potassium 4.1 mmol/L (3.5-5.1); Protein, Total 8.8 g/dL (6.0-8.3); Sodium 138 mmol/L (136-145)
[2024-04-06 14:38] LABS: Acetaminophen Less than 10 mcg/mL (Less than 10); Alcohol Less than 10.0 mg/dL (Less than 10); Salicylate Less than 8.0 mg/dL (Less than 8.0)
[2024-04-06 15:56] LABS: Bacteria/HPF 2+ HPF (None Seen); Bilirubin Negative (Negative); Blood, Urine 1+ (Negative); CAUTI Indications for Culture Alt mental st,lethar; Clarity Turbid (Clear); Glucose, Urine (Dipstick) 300 mg/dL (Negative); Ketone, Urine Negative (Negative); Leukocyte 500 Leu/uL (Negative); Nitrite Negative (Negative); Protein, Urine (Dipstick) 300 mg/dL (Neg-Trace); Specific Gravity, Urine 1.016 (1.002-1.036); Transitional Epithelial 0-3 HPF (None Seen); Triple Phosphate Crystal Rare HPF (None Seen); Urobilinogen Normal mg/dL (Less than 2); WBC/HPF Greater than 50 HPF (0-3)
[2024-04-06 15:58] LABS: Amphetamine Not Detected (NotDetected); Barbiturates Screen Not Detected (NotDetected); Benzodiazepine Screen Not Detected (NotDetected); Cocaine Metabolite Screen Not Detected (NotDetected); Methadone Not Detected (NotDetected); Methamphetamine Not Detected (NotDetected); Opiate Screen Detected (NotDetected); Oxycodone Screen Not Detected (NotDetected); Phencyclidine (PCP) Not Detected (NotDetected); THC/Cannabinoid Screen Not Detected (NotDetected); Tricyclic Screen Not Detected (NotDetected)
[2024-04-06 16:00] LABS: Urine Culture Reflex Yes Yes
== END 2024-04-06 16:07 | disposition home or self-care (01) ==
LOC: ERS 13:13
DX: S22.42XA Multiple fractures of ribs, left side, initial encounter for closed fracture (principal); N39.0 Urinary tract infection, site not specified; R07.89 Other chest pain; E11.9 Type 2 diabetes mellitus without complications; V89.2XXA Person injured in unspecified motor-vehicle accident, traffic, initial encounter; Z87.891 Personal history of nicotine dependence
CPT/HCPCS: 36415; 71046; 80053; 80306; 80307; 81001; 84146; 85025; 87086; 93005